=== PATIENT | female | born 1925 | race Caucasian/White ===

== ENCOUNTER 2016-04-23 14:16 | Inpatient (IN) | payer OTHER ==
[~2016-04-23] VITALS: Ht 165.1 cm; Wt 99.8 kg
[~2016-04-23 14:16] MED LIST: ASPEC325 PO; ATEN-173 PO; IBUP-1050 PO; LEVO-217 PO; LISI20TA PO; MULT-506 PO; TRAM-10 PO
--- NOTE | 2016-04-23 15:51 | EMERGENCY ROOM VISIT NOTE ---
History Report prepared by Delmer: Jose G Fiore Under the Supervision of: Dr. Westley Noonan M.D. First contact with patient: 15:24 Chief Complaint: LEG PAIN,LEG INJURY Stated Complaint: LEFT LEG SWELLING AND PAIN History of Present Illness The patient is an 89 year old female who presents to the Emergency Room with complaints of worsening left thigh pain beginning two days prior to arrival. She currently rates her discomfort as an 8/10 in severity. The patient associates left leg swelling, bilateral foot swelling, and weight gain with today's symptoms. She notes she got up out of bed two days ago, and it was difficult for her to walk. The patient states she felt like she was losing her balance, because her left leg feels weak. She notes she has a history of left hip surgery ten years ago, and she has not walked well since. The patient states she has a history of lymphedema in her right leg for the past two years. She notes she has been eating and drinking normally. The patient states she has always had some left leg discomfort since her hip surgery, but the weakness has been new over the past several days. Pt denies LOC, headache, fevers, chills, diaphoresis, visual changes, neck pain, chest pain, breathing difficulties, nausea, vomiting, abdominal pain, back pain, melena, hematochezia, urinary symptoms, numbness, rash, or other complaints. 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 A total of ten systems were reviewed and were otherwise negative. Past Medical & Surgical Medical Problems: (1) Leg swelling (2) Lymphedema Surgical Problems: (1) S/P right knee surgery (2) Status post hip surgery Family History Patient reports no known family medical history. Social History Smoking Status: Never Smoker Marital Status: Housing Status: lives alone Occupation Status: retired Current/Historical Medications Scheduled Aspirin Enteric Coated (Ecotrin Or Generic *), 325 MG PO DAILY Atenolol (Tenormin), 25 MG PO DAILY Fish Oil ([place]-3), 1 CAP PO BID Glucosamine Sulfate (Glucosamine), Unknown Dose PO BID Ibuprofen (Advil), 200 MG PO DAILY Latanoprost (Xalatan 0.005% Oph Angelica), 1 DROP OPB HS Levothyroxine Sodium (Levothyroxine Sodium), 1 TAB PO DAILYBB Lisinopril (Zestril), 20 MG PO DAILY Multivitamin (Multivitamin), 0.5 TAB PO DAILY Allergies Coded Allergies: No Known Allergies (Verified , 04/23/16) Physical Exam Vital Signs Date Time Temp Pulse Resp B/P Pulse Ox O2 Delivery O2 Flow Rate FiO2 04/23/16 21:43 65 16 111/64 98 04/23/16 21:33 36.7 64 18 122/76 98 Room Air 04/23/16 20:55 65 16 111/64 98 Room Air 04/23/16 18:35 67 17 116/62 100 Room Air 04/23/16 17:02 65 18 115/58 100 Room Air 04/23/16 15:52 100 Room Air 04/23/16 15:52 63 18 98/57 100 Room Air 04/23/16 14:22 36.5 59 18 103/62 99 Room Air Physical Exam GENERAL: Awake, alert, uncomfortable-appearing, in no distress HENT: Normocephalic, atraumatic. Oropharynx unremarkable. EYES: Normal conjunctiva. Sclera non-icteric. NECK: Supple. No nuchal rigidity. FROM. No JVD. RESPIRATORY: Clear to auscultation. CARDIAC: Regular rate, normal rhythm. Extremities warm and well perfused. Pulses equal. ABDOMEN: Soft, non-distended. No tenderness to palpation. No rebound or guarding. No masses. RECTAL: Deferred. MUSCULOSKELETAL: Chest examination reveals no tenderness. The back is symmetrical on inspection without obvious abnormality. There is no CVA tenderness to palpation. No joint edema. LOWER EXTREMITIES: 3+ edema on the left leg. 2+ edema on the right leg. Chronic appearing skin changes, erythema, and dry skin on right lower leg, which patient states is chronic. NEURO: Normal sensorium. No sensory or motor deficits noted. SKIN: No rash or jaundice noted. Medical Decision & Procedures ER Provider Diagnostic Interpretation: X ray results as stated below per my interpretation and radiologist interpretation. Other radiology results as stated below per my review and radiologist interpretation LEFT FEMUR 3 VIEWS CLINICAL HISTORY: Left leg pain and swelling. FINDINGS: AP, frog-leg, and lateral views of the left femur are correlated with pelvic radiograph dated 05/10/2007. The skeletal structures are osteopenic. A bipolar left hip arthroplasty is in near-anatomic alignment. There is no radiographic evidence of left femoral fracture. No periprosthetic lucency is identified. Heterotopic ossification is noted adjacent to the neck of the arthroplasty. The imaged left hemipelvis appears intact. Arthritic change is noted in the left knee. The soft tissues of the thigh are normal in appearance. There is advanced atherosclerotic calcification of the left femoral artery. IMPRESSION: There is no radiographic evidence of left femoral fracture. See above. Electronically signed by: Kameron Bender M.D. 04/23/2016 5:38 PM ULTRASOUND LEFT LOWER EXTREMITY VENOUS CLINICAL HISTORY: Left leg pain and swelling. COMPARISON STUDY: Bilateral lower extremity venous ultrasound dated 05/14/2007. TECHNIQUE: Real-time, grayscale, and color Doppler sonography of the deep veins of the left lower extremity was performed from the inguinal crease to the calf. Compression and augmentation were utilized. FINDINGS: There is no sonographic evidence of deep venous thrombosis identified in the left lower extremity. The common femoral, superficial femoral, and popliteal veins are patent and normally compressible. The greater saphenous vein and the profunda femoris vein at the junction with the common femoral vein are clear. The visualized calf veins are patent. IMPRESSION: There is no sonographic evidence of deep venous thrombosis identified in the left lower extremity. Electronically signed by: Kameron Bender M.D. 04/23/2016 5:28 PM SINGLE VIEW CHEST CLINICAL HISTORY: Dyspnea. FINDINGS: An AP, portable, upright chest radiograph is compared to study dated 03/04/2009. The examination is significantly degraded by portable technique and patient rotation. The heart is enlarged and there is atherosclerotic calcification of the thoracic ureter. There is mild pulmonary vascular congestion. There is left basilar atelectasis with mild elevation of left hemidiaphragm. No airspace consolidation or large pleural effusion is identified. No pneumothorax is seen. The skeletal structures are osteopenic. The bony thorax is grossly intact. IMPRESSION: Cardiomegaly with minimal congestion of the pulmonary vasculature. Electronically signed by: Kameron Bender M.D. 04/23/2016 7:31 PM Laboratory Results 04/23/16 15:55 Red Blood Count 3.80, Mean Corpuscular Volume 90.0, Mean Corpuscular Hemoglobin 29.2, Mean Corpuscular Hemoglobin Concent 32.5, Mean Platelet Volume 10.6, Neutrophils (%) (Auto) 66.2, Lymphocytes (%) (Auto) 24.5, Monocytes (%) (Auto) 8.1, Eosinophils (%) (Auto) 0.8, Basophils (%) (Auto) 0.2, Neutrophils # (Auto) 4.27, Lymphocytes # (Auto) 1.58, Monocytes # (Auto) 0.52, Eosinophils # (Auto) 0.05, Basophils # (Auto) 0.01 04/23/16 16:35 Test 04/23/16 15:55 04/23/16 16:35 White Blood Count 6.44 K/uL (4.8-10.8) Red Blood Count 3.80 M/uL (4.2-5.4) Hemoglobin 11.1 g/dL (12.0-16.0) Hematocrit 34.2 % (37-47) Mean Corpuscular Volume 90.0 fL (80-100) Mean Corpuscular Hemoglobin 29.2 pg (25-34) Mean Corpuscular Hemoglobin Concent 32.5 g/dl (32-36) Platelet Count 248 K/uL (130-400) Mean Platelet Volume 10.6 fL (7.4-10.4) Neutrophils (%) (Auto) 66.2 % Lymphocytes (%) (Auto) 24.5 % Monocytes (%) (Auto) 8.1 % Eosinophils (%) (Auto) 0.8 % Basophils (%) (Auto) 0.2 % Neutrophils # (Auto) 4.27 K/uL (1.4-6.5) Lymphocytes # (Auto) 1.58 K/uL (1.2-3.4) Monocytes # (Auto) 0.52 K/uL (0.11-0.59) Eosinophils # (Auto) 0.05 K/uL (0-0.5) Basophils # (Auto) 0.01 K/uL (0-0.2) RDW Standard Deviation 48.7 fL (36.4-46.3) RDW Coefficient of Variation 14.9 % (11.5-14.5) Immature Granulocyte % (Auto) 0.2 % Immature Granulocyte # (Auto) 0.01 K/uL (0.00-0.02) Pro-B-Type Natriuretic Peptide 4584 pg/ml (0-1800) Prothrombin Time 10.7 SECONDS (9.0-12.0) Prothromb Time International Ratio 1.0 (0.9-1.1) Activated Partial Thromboplast Time 25.3 SECONDS (21.0-31.0) Partial Thromboplastin Ratio 1.0 Anion Gap 9.0 mmol/L (3-11) Est Creatinine Clear Calc Drug Dose 54.2 ml/min Estimated GFR () 73.5 Estimated GFR (Non- 63.4 BUN/Creatinine Ratio 27.0 (10-20) Calcium Level 8.5 mg/dl (8.5-10.1) Magnesium Level 2.4 mg/dl (1.8-2.4) Total Bilirubin 0.3 mg/dl (0.2-1) Aspartate Amino Transf (AST/SGOT) 18 U/L (15-37) Alanine Aminotransferase (ALT/SGPT) 23 U/L (12-78) Alkaline Phosphatase 111 U/L (45-117) Troponin I 0.050 ng/ml (0-0.045) Total Protein 6.7 gm/dl (6.4-8.2) Albumin 3.2 gm/dl (3.4-5.0) Globulin 3.5 gm/dl (2.5-4.0) Albumin/Globulin Ratio 0.9 (0.9-2) Thyroid Stimulating Hormone (TSH) 3.790 uIu/ml (0.300-4.500) Laboratory results reviewed by me Medications Administered Medications (Trade) Dose Ordered Sig/Ambar Route Start Time Stop Time Status Last Admin Dose Admin Furosemide (Lasix Inj) 20 mg NOW STAT IV 04/23/16 20:47 04/23/16 20:48 DC 04/23/16 20:47 20 MG ECG Indication: other (lower extremity swelling) Rate (beats per minute): 64 Rhythm: sinus rhythm Findings: PAC, other (LVH with repolarization) ED Course 1536: The patient was evaluated in room C10. A complete history and physical exam was performed. 1821: Reevaluated the patient at this time, and she is getting an EKG and x-ray. 1850: It is noted the patient passed the ambulatory trial. 1916: Reevaluated the patient at this time, and discussed the admission treatment plan due to her elevated troponin. 1926: I spoke to Abram Paul (Hospitalist) about the patient's case, and he will follow the patient for further evaluation. Medical Decision Triage Nursing notes reviewed. The patient's presentation and history were concerning for leg swelling. Etiologies such as DVT, joint effusion, infection, trauma, muscular, lymphedema , idiopathic, CHF, as well as others were entertained. The patient was evaluated. Her legs were swollen. Hemodynamically she was stable. Laboratory testing was done as well as imaging. The patient had a mild anemia on CBC. The patient had the prerenal state on chemistry panel. Her BNP was moderately elevated at 4500. The patient did have a positive troponin. INR was 1. Chest imaging did not reveal any evidence of infiltrate. The patient did have mild pulmonary vascular congestion. Given the laboratory findings, leg swelling, and chest x-ray it was felt that the patient would need further evaluation and management in the hospital as she does not have a history of coronary issues or CHF. I discussed this with the patient and family. They were in agreement. Consultation was made with internal medicine. The patient was evaluated in the Emergency Room for further treatment. The chart was completed utilizing [employer]SO[employer] Speech voice recognition software. Grammatical errors, random word insertions, pronoun errors, and incomplete sentences are an occasional consequence of this system due to software limitations, ambient noise, and hardware issues. Any formal questions or concerns about the content, text, or information contained within the body of this dictation should be directly addressed to the physician for clarification. Consults Time Called: 1922 Consulting Physician: Abram Paul (Hospitalist) Returned Call: 1926 I spoke to Abram Paul (Hospitalist) about the patient's case, and he will follow the patient for further evaluation. Impression Primary Impression: Lower extremity edema Additional Impression: Elevated troponin Scribe Attestation The scribe's documentation has been prepared under my direction and personally reviewed by me in its entirety. I confirm that the note above accurately reflects all work, treatment, procedures, and medical decision making performed by me. Departure Information Dispostion Being Evaluated By Hospitalist (Abram Paul (Hospitalist)) Referrals Luis Hoff M.D. (MEDICAL) (PCP)
[2016-04-23 16:02] LABS: BASO % 0.2 %; BASO ABS # 0.01 K/uL (0-0.2); COMPLETE YES; EOS % 0.8 %; HEMATOCRIT 34.2 % (37-47); IG% 0.2 %; LYMPH % 24.5 %; LYMPH ABS # 1.58 K/uL (1.2-3.4); MEAN CORPUSCULAR HEMOGLOBIN 29.2 pg (25-34); MEAN CORPUSCULAR HGB CONC 32.5 g/dl (32-36); MEAN PLATELET VOLUME 10.6 fL (7.4-10.4); MONO % 8.1 %; NEUT % 66.2 %; PLATELET COUNT 248 K/uL (130-400); WHITE BLOOD COUNT 6.44 K/uL (4.8-10.8)
[2016-04-23] MEDS ORDERED: LISI-461 PO (16:14)
[2016-04-23] MEDS ORDERED: OMEG10007 PO (16:17)
[2016-04-23] MEDS ORDERED: GLUC-172 PO (16:19)
[2016-04-23 16:26] LABS: ALB/GLOB RATIO 0.9 (0.9-2); ALKALINE PHOSPHATASE 121 U/L (45-117); ALT/SGPT 25 U/L (12-78); BLOOD UREA NITROGEN 22 mg/dl (7-18); BUN/CREATININE RATIO 23.5 (10-20); CALCIUM 8.9 mg/dl (8.5-10.1); CARBON DIOXIDE 25 mmol/L (21-32); CHLORIDE 107 mmol/L (98-107); CREATININE 0.93 mg/dl (0.60-1.20); GLUCOSE 76 mg/dl (70-99); SODIUM 141 mmol/L (136-145)
[2016-04-23] MEDS ORDERED: LISI-725 PO (16:27)
[2016-04-23] MEDS ORDERED: LEVO100T7 PO (16:29)
[2016-04-23] MEDS ORDERED: LATA0.5S OPB (16:30)
[2016-04-23 16:53] LABS: PROTHROMBIN TIME (PATIENT) 10.7 SECONDS (9.0-12.0)
[2016-04-23 17:02] LABS: CALCIUM 8.5 mg/dl (8.5-10.1); CREATININE 0.82 mg/dl (0.60-1.20); POTASSIUM 4.6 mmol/L (3.5-5.1)
[2016-04-23 17:05] LABS: ALB/GLOB RATIO 0.9 (0.9-2)
--- NOTE | 2016-04-23 17:30 | DIAGNOSTIC IMAGING REPORT ---
ULTRASOUND LEFT LOWER EXTREMITY VENOUS CLINICAL HISTORY: Left leg pain and swelling. COMPARISON STUDY: Bilateral lower extremity venous ultrasound dated 05/14/2007. TECHNIQUE: Real-time, grayscale, and color Doppler sonography of the deep veins of the left lower extremity was performed from the inguinal crease to the calf. Compression and augmentation were utilized. FINDINGS: There is no sonographic evidence of deep venous thrombosis identified in the left lower extremity. The common femoral, superficial femoral, and popliteal veins are patent and normally compressible. The greater saphenous vein and the profunda femoris vein at the junction with the common femoral vein are clear. The visualized calf veins are patent. IMPRESSION: There is no sonographic evidence of deep venous thrombosis identified in the left lower extremity. Electronically signed by: Kameron Bender M.D. 04/23/2016 5:28 PM
[2016-04-23] MEDS ORDERED: SODIUM CHLORIDE 0.45% INJ 1000 ML BAG IV ONE (17:33)
--- NOTE | 2016-04-23 17:40 | DIAGNOSTIC IMAGING REPORT ---
LEFT FEMUR 3 VIEWS CLINICAL HISTORY: Left leg pain and swelling. FINDINGS: AP, frog-leg, and lateral views of the left femur are correlated with pelvic radiograph dated 05/10/2007. The skeletal structures are osteopenic. A bipolar left hip arthroplasty is in near-anatomic alignment. There is no radiographic evidence of left femoral fracture. No periprosthetic lucency is identified. Heterotopic ossification is noted adjacent to the neck of the arthroplasty. The imaged left hemipelvis appears intact. Arthritic change is noted in the left knee. The soft tissues of the thigh are normal in appearance. There is advanced atherosclerotic calcification of the left femoral artery. IMPRESSION: There is no radiographic evidence of left femoral fracture. See above. Electronically signed by: Kaemron Bender M.D. 04/23/2016 5:38 PM
--- NOTE | 2016-04-23 19:33 | DIAGNOSTIC IMAGING REPORT ---
SINGLE VIEW CHEST CLINICAL HISTORY: Dyspnea. FINDINGS: An AP, portable, upright chest radiograph is compared to study dated 03/04/2009. The examination is significantly degraded by portable technique and patient rotation. The heart is enlarged and there is atherosclerotic calcification of the thoracic ureter. There is mild pulmonary vascular congestion. There is left basilar atelectasis with mild elevation of left hemidiaphragm. No airspace consolidation or large pleural effusion is identified. No pneumothorax is seen. The skeletal structures are osteopenic. The bony thorax is grossly intact. IMPRESSION: Cardiomegaly with minimal congestion of the pulmonary vasculature. Electronically signed by: Kameron Bender M.D. 04/23/2016 7:31 PM
[2016-04-23 20:09] LABS: MAGNESIUM 2.4 mg/dl (1.8-2.4); THYROID STIMULATING HORMONE 3.79 uIu/ml (0.300-4.500)
[2016-04-23] MEDS ORDERED: FUROSEMIDE INJ 40 MG in SYRINGE 0 ML IV STA (20:14)
[2016-04-23] MEDS ORDERED: FUROSEMIDE INJ 20 MG in SYRINGE 0 ML IV STA (20:44)
[2016-04-23] MEDS ORDERED: ONDANSETRON INJ 2 MG/ML 2 ML VIAL IV PRN (20:45)
[2016-04-23] MEDS ORDERED: HYDROmorphone INJ 1 MG/ML SYR IV PRN (20:45)
[2016-04-23] MEDS ORDERED: NITROGLYCERIN 0.4 MG SL PER TAB CHARGE SL PRN (20:45)
[2016-04-23] MEDS ORDERED: TRAMADOL HCL 50 MG TAB PO PRN (20:45)
[2016-04-23] MEDS ORDERED: FUROSEMIDE 40 MG/4 ML VIAL IV STA (20:47)
[2016-04-23 21:33] VITALS: BP 122/76; PULSE 64; TEMP 36.7; O2SAT 98; Ht 165.1 cm; Wt 99.8 kg
[2016-04-23] MEDS: ENOXAPARIN 40 MG/0.4 ML SYR SC SCH (23:05)
[2016-04-23] MEDS: LATANOPROST 0.005% OP SOLN 2.5 ML BTL OPB SCH (23:06)
[2016-04-23 23:27] VITALS: BP 90/47; PULSE 64; TEMP 36.4; O2SAT 96
[2016-04-24] VITALS (39 sets, daily range): BP systolic 55–102; BP diastolic 33–59; PULSE 54–77; TEMP 36.4–36.7; O2SAT 93–100
[2016-04-24 05:49] LABS: BASO % 0.3 %; BASO ABS # 0.01 K/uL (0-0.2); COMPLETE YES; EOS % 3.5 %; HEMATOCRIT 28.3 % (37-47); LYMPH % 41.5 %; LYMPH ABS # 1.56 K/uL (1.2-3.4); MEAN CELL VOLUME 88.4 fL (80-100); MEAN CORPUSCULAR HEMOGLOBIN 29.4 pg (25-34); MEAN CORPUSCULAR HGB CONC 33.2 g/dl (32-36); MEAN PLATELET VOLUME 10.2 fL (7.4-10.4); MONO % 8.8 %; NEUT % 45.9 %; PLATELET COUNT 191 K/uL (130-400); WHITE BLOOD COUNT 3.76 K/uL (4.8-10.8)
[2016-04-24] MEDS: LEVOTHYROXINE 100 MCG TAB PO SCH (06:04)
[2016-04-24 06:21] LABS: BUN/CREATININE RATIO 25.4 (10-20); CALCIUM 8.2 mg/dl (8.5-10.1); CREATININE 0.84 mg/dl (0.60-1.20); POTASSIUM 4.3 mmol/L (3.5-5.1)
--- NOTE | 2016-04-24 07:37 | HISTORY & PHYSICAL EXAMINATION ---
DATE OF ADMISSION: 04/23/2016 PRIMARY CARE DOCTOR: Dr. Hoff. CHIEF COMPLAINT: Left leg swelling, pain. HISTORY OF PRESENT ILLNESS: Medical history significant for hypertension, lymphedema; aortic stenosis as per records, arthritis; chronic anemia (baseline hemoglobin 11). Patient has had pain on the left thigh for more than a year now. Seen by [facility] [place] [place] [facility] in March 2015. As per patient, pain attributed to osteoarthritis. She was told that she was not a candidate for surgery. In the last few days more swelling on the left leg, more pain on the left thigh. Trouble moving around. No chest pain, no shortness of breath, no fever, no chills. Usual redness. for both legs Patient brought by family to the Emergency Room. MEDICAL HISTORY: As above. 2D echo in 2007 showed EF 70%, LVH, dilated left atrium, moderate aortic stenosis. SURGERIES: Hip surgery, gynecologic procedures, eye surgery, knee surgery, cataract surgery. HOME MEDICATIONS: Include aspirin, atenolol, omega-3, glucosamine, Advil, Xalatan, levothyroxine, Zestril, multivitamins. ALLERGIES: No known drug allergies. FAMILY HISTORY: Heart disease. PERSONAL SOCIAL HISTORY: Nonsmoker, no chronic intake of alcoholic beverages. REVIEW OF SYSTEMS: As per HPI, all other ROS negative. PHYSICAL EXAMINATION: VITAL SIGNS: Blood pressure was noted to be 103/60, pulse rate 60, RR 18, temperature 36.5, sats 99 on room air. GENERAL: Noted to be an obese, pleasant, no respiratory distress. Looks younger for stated age. SKIN : pallor HEENT: Pale palpebral conjunctivae, dry mucosa. NECK: Short neck. LUNGS: Decreased breath sounds. HEART: Systolic murmur. ABDOMEN: Some distention, nontender. EXTREMITIES: bilateral lower extremity edema (chronic erythema as per px) tenderness on the left thigh. NEUROLOGIC: No gross focality. LABORATORY DATA: Hemoglobin was 11.1, hematocrit 40.2, white cell count 6.44, platelets noted to be 248. Sodium noted to be 142, potassium 4.6, chloride 109, CO2 24, BUN 22, creatinine 0.8, glucose of 87. Troponin was noted to be 0.05. BNP was 4584. Lower extremity ultrasound negative for DVT. Plain femoral x-ray, no radiographic evidence of left femoral fracture. Chest x-ray; cardiomegaly with minimal congestion. EKG, rate 65, normal sinus rhythm, LVH, T-wave inversion in lateral leads. ASSESSMENT: 1. Isolated troponinemia poss from LV strain from poss progression of px denies cp, sob sx 2. Left leg swelling hx lymphedema 3. chronic anemia, Hg at baseline 4. hypertension, blood pressure on the low side 5. ambulatory dysfunction, worsening chronic L thigh pain etiology to be determined. PLAN: PCU mainly for troponinemia. Follow troponin; 2D echo RE troponinemia. Lasix one dose now for lymphedema/venous insufficiency causing distress Px may benefit from low dose diuretic. Orthopedics consult RE left thigh pain may need CT or MRI LE to determine etio (Dr. Sen as per px request). Further management pending workup results. PT, OT eval. DVT prophylaxis with Lovenox subQ. Full code. MTDD
[2016-04-24] MEDS ORDERED: ASPIRIN 81 MG CHEW PO STA (08:57)
[2016-04-24] MEDS ORDERED: ONDANSETRON INJ 2 MG/ML 2 ML VIAL IV STA (08:57)
[2016-04-24] MEDS ORDERED: ONDANSETRON INJ 2 MG/ML 2 ML VIAL IV PRN (09:00)
[2016-04-24] MEDS ORDERED: LISINOPRIL 2.5 MG TAB PO SCH (09:00)
[2016-04-24] MEDS ORDERED: LISINOPRIL 20 MG TAB PO SCH (09:00)
[2016-04-24] MEDS ORDERED: ASPIRIN 324 MG CHEW ONE (09:05)
--- NOTE | 2016-04-24 09:14 | DIAGNOSTIC IMAGING REPORT ---
CHEST ONE VIEW PORTABLE CLINICAL HISTORY: Code blue. Leg swelling. COMPARISON STUDY: Chest radiograph April 23, 2016 FINDINGS: No pneumothorax or pleural effusion is present. There is no evidence of pulmonary edema. Cardiomediastinal silhouette is stable. There may be a few nodular opacities within the right upper lung which were not present on prior exam. IMPRESSION: 1. A few subtle nodules within the right upper lung which may reflect a mild infectious process. However, artifact could appear similar. 2. No evidence of pulmonary edema. Electronically signed by: Jose William M.D. 04/24/2016 9:13 AM
[2016-04-24 09:21] LABS: BUN/CREATININE RATIO 24.5 (10-20); CALCIUM 8.6 mg/dl (8.5-10.1); MAGNESIUM 2.3 mg/dl (1.8-2.4); POTASSIUM 4.1 mmol/L (3.5-5.1)
[2016-04-24] MEDS ORDERED: PERFLUTREN LIPID MICROSPHERE (DEFINITY) IV ONE (09:25)
[2016-04-24 09:32] LABS: CKMB/CK RATIO 1.9 (0-3.0); PHOSPHORUS 3.5 mg/dl (2.5-4.9)
[2016-04-24] MEDS ORDERED: NURSING VERBAL MED ORDER ONE (10:30)
[2016-04-24] MEDS ORDERED: SODIUM CHLORIDE 0.9% 500ML 500 ML IV SCH (10:45)
--- NOTE | 2016-04-24 10:45 | ECHOCARDIOGRAM REPORT ---
*NOTICE TO RECEIVING REPUBLICAN AGENCY This information is strictly Confidential and protected under [place] law. [place] law prohibits you from making any further disclosure of this information unless further disclosure is expressly permitted by the written consent of the person to whom it pertains or is authorized by law. A general authorization for the release of medical or other information is not sufficient for this purpose. Hospital accepts no responsibility if the information is made available to any other person, INCLUDING THE PATIENT. Interpretation Summary * Name: VONNIE SANCHES Study Date: 04/24/2016 09:05 AM BP: 92/52 mmHg * Patient Location: .MSICU\S\E102\S\1 HR: 61 * : 1925 (M/d/yyyy) Gender: Female Height: 65 in * Age: 89 yrs Ethnicity: CA Weight: 218 lb * Ordering Physician: Damian Gustafson * Performed By: Juany Snyder * * Reason For Study: TROPONINEMIA, MURMUR * BSA: 2.1 m2 * -- Conclusions -- * Small, underfilled, LV chamber with moderate concentric LVH. * Hyperdynamic LV systolic function, EF >70%. * No segmental left ventricular wall motion abnormalities are noted. * Grade II diastolic dysfunction. * Heavily calcified aortic valve, number of leaflets undetermined, reduced systolic excursion. Severe aortic stenosis with Vmax of 5.4 m/s, PGmax of 115 mmHg. Mild aortic regurgitation. * RVSP of 20-30 mmHg. Procedure Details * A complete two-dimensional transthoracic echocardiogram was performed (2D, M-mode, Doppler and color flow Doppler). * There were technical limitations due to patient'spoor positioning * A contrast injection of Definity was performed to improve assessment of LV function. * Contrast was injected into an intravenous site in the left arm. * One vial of Definity ultrasound contrast was diluted in normal saline to a total volume of 10 ml. A total of '3' ml of solution was administered during imaging. * Lot # [id number] of Definity utilized for procedure. * Expiration date 10/07. Left Ventricle * The left ventricular cavity is small. * There is moderate concentric left ventricular hypertrophy. * Ejection Fraction = >70 %. * The left ventricle is hyperdynamic. * No segmental left ventricular wall motion abnormalities are noted. * The left ventricular wall motion is normal. Right Ventricle * The right ventricle is not well visualized. * The right ventricular systolic function is normal as assessed by tricuspid annular plane systolic excursion (TAPSE) (normal >1.5 cm). Atria * The left atrial size is normal. * Right atrium not well visualized. * No ASD detected; PFO is not assessed. * The interatrial septum bows toward right atrium consistent with elevated left atrial pressure. Mitral Valve * There is moderate mitral annular calcification. * The mitral valve leaflets appear thickened, but open well. * There is no mitral valve stenosis. * There is no mitral regurgitation noted. Tricuspid Valve * The tricuspid valve is normal in structure and function. Aortic Valve * The aortic valve is not well visualized. * Severe valvular aortic stenosis. * Mild aortic regurgitation. Pulmonic Valve * The pulmonary valve is not well seen, but the Doppler examination is normal without significant regurgitation or stenosis. Great Vessels * The aortic root and proximal ascending aorta are normal sized. Pericardium/Pleural * There is no pericardial effusion. Left Ventricular Diastolic Function * Diastolic dysfunction, Grade II (pseudonormalization pattern). MMode 2D Measurements and Calculations IVSd 1.5 cm IVSs 1.7 cm LVIDd 4.1 cm LVIDs 2.7 cm LVPWd 1.1 cm LVPWs 1.4 cm IVS/LVPW 1.4 FS 34.2 % EDV(Teich) 73.1 ml ESV(Teich) 26.5 ml EF(Teich) 63.8 % EDV(cubed) 67.6 ml ESV(cubed) 19.2 ml EF(cubed) 71.6 % % IVS thick 12.6 % % LVPW thick 31.1 % LV mass(C)d 193.4 grams LV mass(C)dI 94.2 grams/m\S\2 LV mass(C)s 149.1 grams LV mass(C)sI 72.6 grams/m\S\2 CO(Teich) 3.1 l/min CI(Teich) 1.5 l/min/m\S\2 SV(Teich) 46.6 ml SI(Teich) 22.7 ml/m\S\2 CO(cubed) 3.2 l/min CI(cubed) 1.6 l/min/m\S\2 SV(cubed) 48.3 ml SI(cubed) 23.6 ml/m\S\2 LA dimension 3.6 cm asc Aorta Diam 3.4 cm LVOT diam 1.6 cm LVOT area 2.1 cm\S\2 LVAd ap4 33.7 cm\S\2 LVLd ap4 9.1 cm EDV(MOD-sp4) 101.0 ml LVAs ap4 16.6 cm\S\2 LVLs ap4 6.9 cm ESV(MOD-sp4) 32.1 ml EF(MOD-sp4) 68.2 % LVAd ap2 32.8 cm\S\2 LVLd ap2 8.8 cm EDV(MOD-sp2) 100.0 ml LVAs ap2 17.1 cm\S\2 LVLs ap2 7.5 cm ESV(MOD-sp2) 32.2 ml EF(MOD-sp2) 67.8 % CO(MOD-sp4) 4.6 l/min CI(MOD-sp4) 2.2 l/min/m\S\2 SV(MOD-sp4) 68.9 ml SI(MOD-sp4) 33.6 ml/m\S\2 CO(MOD-sp2) 4.5 l/min CI(MOD-sp2) 2.2 l/min/m\S\2 SV(MOD-sp2) 67.8 ml SI(MOD-sp2) 33.0 ml/m\S\2 Doppler Measurements and Calculations MV E max [place] 117.4 cm/sec MV A max [place] 81.0 cm/sec MV E/A 1.4 MV V2 max 146.6 cm/sec MV max PG 8.6 mmHg MV V2 mean 74.1 cm/sec MV mean PG 2.7 mmHg MV V2 VTI 51.6 cm MVA(VTI) 1.0 cm\S\2 MV dec time 0.25 sec Ao V2 max 536.9 cm/sec Ao max PG 115.3 mmHg Ao max PG (full) 73.5 mmHg Ao V2 mean 396.6 cm/sec Ao mean PG 69.9 mmHg Ao mean PG (full) 68.5 mmHg Ao V2 VTI 148.8 cm JENNIFER(I,A) 0.36 cm\S\2 JENNIFER(I,D) 0.36 cm\S\2 JENNIFER(V,A) 0.91 cm\S\2 JENNIFER(V,D) 0.91 cm\S\2 AI max [place] 213.1 cm/sec AI max PG 18.2 mmHg AI dec slope 140.7 cm/sec\S\2 AI P1/2t 443.6 msec LV V1 max PG 41.8 mmHg LV V1 mean PG 1.4 mmHg LV V1 max 237.9 cm/sec LV V1 mean 54.7 cm/sec LV V1 VTI 25.8 cm MR max [place] 476.4 cm/sec MR max PG 90.8 mmHg SV(LVOT) 52.9 ml SI(LVOT) 25.8 ml/m\S\2 PA V2 max 102.8 cm/sec PA max PG 4.2 mmHg TR max [place] 249.2 cm/sec
--- NOTE | 2016-04-24 10:50 | Progress Note ---
Internal Med Progress Note Date of Service: Apr 24, 2016. Provider Documentation: SUBJECTIVE: pt was admitted for lower ext progressive edema had episode of hypotension , unresponsive episode in AM as she was OOB going to bed side commode became unresponsive , bradycardic , Code blue was called pt regained conscious with in few seconds , was able to answer questions transferred to ICU during my time of interview -pt was awake and alert , conversing , no complain of dizzy spell or lightheadedness mentioned she felt nauseous and dizzy before passing out earlier BP remains borderline low in 80's getting IV fluid OBJECTIVE: Vital Signs-as noted below Exam: General-no sign of distress Eyes-sclera non icteric, PERRLA/EOMI ENT-NAD Neck-no thyromegaly , trachea midline Lungs-CTA, no wheeze or rales Heart-+ murmur with radiation to carotids Abdomen-soft, non tender Extremities- + 1-2 lower ext edema, with + warmth , erythema on left Neuro-no focal neurological deficit Lab data as noted below. ASSESSMENT & PLAN: SYNCOPE /DIZZY SPELL : due to dehydration -leading to cerebral /cardiac perfusion due to severe IV fluid given , vol status needs to be monitored closely given severe valvular disease appreciate input form critical care HYPOTENSION : given gentle hydration hold diuretics ACEI on hold atenolol with holding parameters only SEVERE AORTIC STENOSIS: ECHO: Hyperdynamic LV systolic function, EF >70%. * No segmental left ventricular wall motion abnormalities are noted. * Grade II diastolic dysfunction. * Heavily calcified aortic valve, number of leaflets undetermined, reduced systolic excursion. Severe aortic stenosis with Vmax of 5.4 m/s, PGmax of 115 mmHg. Mild aortic regurgitation. * RVSP of 20-30 mmHg. -D/w Cardiology , pt will be evaluated in Am -will need to be optimized with vol status will need continued eval for Aortic valve replacement can be done electively after out pt follow up and referral to CT surgery at [facility] Family -Son and Daughter updated at bedside LOWER EXT EDEMA /CELLULITIS : po Doxycycline empirically avoid diuretics to prevent dehydration , intravascular vol depletion FULL CODE DVT PROPHYLAXIS sub q heparin DISPOSITION to be determined will need PT/OT eval when medically stable Vital Signs: Date Time Temp Pulse Resp B/P Pulse Ox O2 Delivery O2 Flow Rate FiO2 04/24/16 21:40 74 89/50 1/2/17 20:00 36.6 67 17 82/40 97 Room Air 04/24/16 20:00 Room Air 04/24/16 18:30 65 5 95 04/24/16 18:29 68 13 89/48 94 04/24/16 18:00 64 12 85/45 99 Nasal Cannula 2.0 04/24/16 18:00 66 13 98 04/24/16 17:58 70 17 95/51 98 04/24/16 17:30 68 18 99 04/24/16 17:28 69 16 85/45 97 04/24/16 17:00 62 16 98 04/24/16 16:48 64 14 85/45 99 Nasal Cannula 2.0 04/24/16 16:30 64 14 87/46 99 Nasal Cannula 2.0 04/24/16 16:00 63 20 89/50 100 Nasal Cannula 2.0 04/24/16 15:40 Non-Rebreather 100 04/24/16 15:40 36.4 64 16 99/54 99 Nasal Cannula 2.0 04/24/16 15:00 66 100/59 99 Nasal Cannula 2.0 04/24/16 14:13 60 91/50 96 Nasal Cannula 2.0 04/24/16 13:29 61 10 94/41 100 04/24/16 13:00 72 15 100 04/24/16 13:00 71 13 99/55 100 Nasal Cannula 2.0 04/24/16 12:58 74 17 99/55 100 04/24/16 12:43 71 12 92/52 99 04/24/16 12:31 67 14 62/33 97 04/24/16 12:30 71 20 61/41 95 04/24/16 12:30 36.7 77 16 55/36 100 Nasal Cannula 2.0 04/24/16 12:28 70 21 55/36 96 04/24/16 12:00 68 21 97 04/24/16 12:00 Nasal Cannula 2.0 04/24/16 12:00 36.7 70 20 99/50 100 Nasal Cannula 2.0 04/24/16 11:59 66 15 75/46 96 04/24/16 11:30 75 92/46 100 Nasal Cannula 3.0 04/24/16 11:30 64 17 92/46 100 04/24/16 11:30 70 20 99/46 100 Nasal Cannula 2.0 04/24/16 11:00 65 6 100 04/24/16 10:59 63 13 88/47 100 04/24/16 10:30 63 10 100 04/24/16 10:30 61 88/47 100 Nasal Cannula 3.0 04/24/16 10:29 62 10 86/51 98 04/24/16 10:00 57 14 100 04/24/16 10:00 61 84/41 100 Nasal Cannula 3.0 04/24/16 09:59 54 14 85/41 100 04/24/16 09:30 56 16 100 04/24/16 09:30 36.7 61 102/51 100 Non-Rebreather 100 04/24/16 09:30 Non-Rebreather 100 04/24/16 09:30 36.7 61 20 102/51 100 04/24/16 09:29 56 19 94/42 100 04/24/16 09:00 64 102/57 100 04/24/16 07:25 36.5 61 18 92/52 96 Room Air 04/24/16 05:02 78/40 04/24/16 04:42 36.5 62 20 73/40 93 Room Air 04/24/16 04:00 93 Room Air 04/24/16 00:01 96 Room Air Lab Results: Results Past 24 Hours Test 04/24/16 05:35 04/24/16 08:30 04/24/16 08:35 04/24/16 13:50 Range/Units White Blood Count 3.76 4.8-10.8 K/uL Red Blood Count 3.20 4.2-5.4 M/uL Hemoglobin 9.4 12.0-16.0 g/dL Hematocrit 28.3 37-47 % Mean Corpuscular Volume 88.4 80-100 fL Mean Corpuscular Hemoglobin 29.4 25-34 pg Mean Corpuscular Hemoglobin Concent 33.2 32-36 g/dl Platelet Count 191 130-400 K/uL Mean Platelet Volume 10.2 7.4-10.4 fL Neutrophils (%) (Auto) 45.9 % Lymphocytes (%) (Auto) 41.5 % Monocytes (%) (Auto) 8.8 % Eosinophils (%) (Auto) 3.5 % Basophils (%) (Auto) 0.3 % Neutrophils # (Auto) 1.73 1.4-6.5 K/uL Lymphocytes # (Auto) 1.56 1.2-3.4 K/uL Monocytes # (Auto) 0.33 0.11-0.59 K/uL Eosinophils # (Auto) 0.13 0-0.5 K/uL Basophils # (Auto) 0.01 0-0.2 K/uL RDW Standard Deviation 48.8 36.4-46.3 fL RDW Coefficient of Variation 14.9 11.5-14.5 % Immature Granulocyte % (Auto) 0.0 % Immature Granulocyte # (Auto) 0.00 0.00-0.02 K/uL Sodium Level 145 143 136-145 mmol/L Potassium Level 4.3 4.1 3.5-5.1 mmol/L Chloride Level 109 108 98-107 mmol/L Carbon Dioxide Level 26 25 21-32 mmol/L Anion Gap 10.0 10.0 3-11 mmol/L Blood Urea Nitrogen 21 25 7-18 mg/dl Creatinine 0.84 1.00 0.60-1.20 mg/dl Est Creatinine Clear Calc Drug Dose 52.6 44.2 ml/min Estimated GFR () 71.4 57.8 Estimated GFR (Non- 61.6 49.9 BUN/Creatinine Ratio 25.4 24.5 10-20 Random Glucose 80 149 70-99 mg/dl Lactic Acid Level 0.7 0.4-2.0 mmol/L Calcium Level 8.2 8.6 8.5-10.1 mg/dl Troponin I 0.043 0.037 0-0.045 ng/ml Bedside Glucose 134 70-90 mg/dl Phosphorus Level 3.5 2.5-4.9 mg/dl Magnesium Level 2.3 1.8-2.4 mg/dl Total Creatine Kinase 136 26-192 U/L Creatine Kinase MB 2.6 0.5-3.6 ng/ml Creatine Kinase MB Ratio 1.9 0-3.0 Urine Color YELLOW Urine Appearance CLEAR CLEAR Urine pH 6.0 4.5-7.5 Urine Specific [place] 1.018 1.000-1.030 Urine Protein NEG NEG Urine Glucose (UA) NEG NEG Urine Ketones NEG NEG Urine Occult Blood NEG NEG Urine Nitrite NEG NEG Urine Bilirubin NEG NEG Urine Urobilinogen NEG NEG Urine Leukocyte Esterase NEG NEG Test 04/24/16 16:40 Range/Units Total Creatine Kinase 106 26-192 U/L Creatine Kinase MB 2.0 0.5-3.6 ng/ml Creatine Kinase MB Ratio 1.9 0-3.0 Troponin I 0.062 0-0.045 ng/ml Microbiology Results 04/24/16 MRSA DNA Surveillance Screen - Final, Complete Specimen Negative for MRSA by DNA Probe
[2016-04-24] MEDS ORDERED: SODIUM CHLORIDE 0.9% 1000ML 1,000 ML IV ONE (12:15)
[2016-04-24] MEDS: DOXYCYCLINE HYCLATE 100 MG CAP PO SCH ×2 (13:12→20:55)
[2016-04-24] MEDS ORDERED: NYSTATIN POWDER 15GM BTL EXT PRN (14:30)
[2016-04-24 14:48] LABS: URINE APPEARANCE CLEAR (CLEAR); URINE BILIRUBIN NEG (NEG); URINE COLOR YELLOW; URINE NITRITE NEG (NEG); URINE SPECIFIC GRAVITY 1.018 (1.000-1.030); UROBILINOGEN NEG (NEG); ZZURINE CULT IF INDIC CATH NO
[2016-04-24 14:51] LABS: MANUAL MICROSCOPIC REQUIRED? NO; REVIEW REQ? NO
[2016-04-24 17:13] LABS: CKMB/CK RATIO 1.9 (0-3.0)
--- NOTE | 2016-04-24 18:52 | Critical Care Consultation ---
Critical Care Consultation Date of Consultation: Apr 24, 2016. Attending Physician: Genevieve Argueta M.D. History of Present Illness Patient is a 89-year-old female who was initially a code purple which transition to a CODE BLUE early this morning. Reportedly the patient had been admitted for peripheral edema, was doing well until she sat up this morning and was assisted to go to the commode, she became unresponsive, bradycardic and had an episode of hypotension. By the time I entered the room the patient was in the supine position she was marginally responsive which rapidly increased and she was coherent and able to answer questions and remember what had happened. It appeared she had a episode of convulsive syncope. He denied chest pain shortness of breath immediately after arousal. Blood sugar was within normal limits. EKG was obtained and compared to previous with significant T-wave inversions laterally and inferiorly. This was discussed with the on-call unindentured apprentice. A stat echo was ordered and she was transferred to the ICU for further management Family History Patient reports no known family medical history. Social History Smoking Status: Never Smoker Marital Status: Housing Status: lives alone Occupation Status: retired Allergies Coded Allergies: No Known Allergies (Verified , 04/23/16) Home Medications Scheduled Aspirin Enteric Coated (Ecotrin Or Generic *), 325 MG PO DAILY Atenolol (Tenormin), 25 MG PO DAILY Fish Oil ([place]-3), 1 CAP PO BID Glucosamine Sulfate (Glucosamine), Unknown Dose PO BID Ibuprofen (Advil), 200 MG PO DAILY Latanoprost (Xalatan 0.005% Oph Angelica), 1 DROP OPB HS Levothyroxine Sodium (Levothyroxine Sodium), 1 TAB PO DAILYBB Lisinopril (Zestril), 20 MG PO DAILY Multivitamin (Multivitamin), 0.5 TAB PO DAILY Current Inpatient Medications Current Inpatient Medications Medications (Trade) Dose Ordered Sig/Ambar Route Start Time Stop Time Status Last Admin Dose Admin Enoxaparin Sodium (Lovenox Inj) 40 mg Q24H SC 04/23/16 22:00 05/23/16 21:59 04/23/16 23:05 40 MG Acetaminophen (Tylenol Tab) 650 mg Q4H PRN PO 04/23/16 20:45 05/23/16 20:44 Nitroglycerin (Nitrostat Tab) 0.4 mg UD PRN SL 04/23/16 20:45 05/23/16 20:44 Tramadol HCl (Ultram Tab) 25 mg Q6H PRN PO 04/23/16 20:45 05/23/16 20:44 Hydromorphone HCl (Dilaudid Inj) 0.5 mg Q3H PRN IV 04/23/16 20:45 05/07/16 20:44 Aspirin (Ecotrin Tab) 325 mg DAILY PO 04/24/16 09:00 05/24/16 08:59 Future hold Latanoprost (Xalatan Oph Soln) 1 drops HS OPB 04/23/16 21:00 05/23/16 20:59 04/23/16 23:06 1 DROPS Levothyroxine Sodium (Synthroid Tab) 100 mcg DAILYBB PO 04/24/16 06:00 05/24/16 06:59 04/24/16 06:04 100 MCG Multivitamins (Flintstones Complete Tab) 0.5 tab QAM PO 04/24/16 09:00 05/24/16 08:59 Lisinopril (Zestril Tab) 2.5 mg DAILY PO 04/24/16 09:00 05/24/16 08:59 Atenolol (Tenormin Tab) 12.5 mg DAILY PO 04/24/16 09:00 05/24/16 08:59 Ondansetron HCl (Zofran Inj) 4 mg Q8H PRN IV 04/24/16 09:00 05/24/16 08:59 04/24/16 08:40 4 MG Doxycycline Hyclate (Vibramycin Cap) 100 mg BID PO 04/24/16 12:00 05/04/16 11:59 04/24/16 13:12 100 MG Nystatin (Mycostatin Powder) 1 appln PRN PRN EXT 04/24/16 14:30 05/24/16 14:29 Review of Systems Denies chest pain, shortness of breath, abdominal pain. Physical Exam Date Time Temp Pulse Resp B/P Pulse Ox O2 Delivery O2 Flow Rate FiO2 04/24/16 16:48 64 14 85/45 99 Nasal Cannula 2.0 04/24/16 16:30 64 14 87/46 99 Nasal Cannula 2.0 04/24/16 16:00 63 20 89/50 100 Nasal Cannula 2.0 04/24/16 15:40 Non-Rebreather 100 04/24/16 15:40 36.4 64 16 99/54 99 Nasal Cannula 2.0 04/24/16 15:00 66 100/59 99 Nasal Cannula 2.0 04/24/16 14:13 60 91/50 96 Nasal Cannula 2.0 04/24/16 13:29 61 10 94/41 100 04/24/16 13:00 72 15 100 04/24/16 13:00 71 13 99/55 100 Nasal Cannula 2.0 04/24/16 12:58 74 17 99/55 100 04/24/16 12:43 71 12 92/52 99 04/24/16 12:31 67 14 62/33 97 04/24/16 12:30 71 20 61/41 95 04/24/16 12:30 36.7 77 16 55/36 100 Nasal Cannula 2.0 04/24/16 12:28 70 21 55/36 96 04/24/16 12:00 68 21 97 04/24/16 12:00 Nasal Cannula 2.0 04/24/16 12:00 36.7 70 20 99/50 100 Nasal Cannula 2.0 04/24/16 11:59 66 15 75/46 96 04/24/16 11:30 75 92/46 100 Nasal Cannula 3.0 04/24/16 11:30 64 17 92/46 100 04/24/16 11:30 70 20 99/46 100 Nasal Cannula 2.0 04/24/16 11:00 65 6 100 04/24/16 10:59 63 13 88/47 100 04/24/16 10:30 63 10 100 04/24/16 10:30 61 88/47 100 Nasal Cannula 3.0 04/24/16 10:29 62 10 86/51 98 04/24/16 10:00 57 14 100 04/24/16 10:00 61 84/41 100 Nasal Cannula 3.0 04/24/16 09:59 54 14 85/41 100 04/24/16 09:30 56 16 100 04/24/16 09:30 36.7 61 102/51 100 Non-Rebreather 100 04/24/16 09:30 Non-Rebreather 100 04/24/16 09:30 36.7 61 20 102/51 100 04/24/16 09:29 56 19 94/42 100 04/24/16 09:00 64 102/57 100 04/24/16 07:25 36.5 61 18 92/52 96 Room Air 04/24/16 05:02 78/40 04/24/16 04:42 36.5 62 20 73/40 93 Room Air 04/24/16 04:00 93 Room Air 04/24/16 00:01 96 Room Air 04/23/16 23:27 36.4 64 20 90/47 96 Room Air 04/23/16 21:43 65 16 111/64 98 04/23/16 21:33 36.7 64 18 122/76 98 Room Air 04/23/16 20:55 65 16 111/64 98 Room Air 04/23/16 18:35 67 17 116/62 100 Room Air FAMILY SERVICE AIDE/Neuro: AAOx 3, Pupils: Equal round reactive, Focal Signs: None Respiratory: Third auscultation bilaterally no wheezes rales rhonchi Cardiovascular: S1-S2 significant murmur CV drips: Rhythm: Normal sinus rhythm EKG: EKG is 3 reviewed today, immediately after hypotensive, syncopal episode patient had inverted T waves which resolved after 15 minutes, there is no chest pain during the entire event ECHO: Report dated 04/24/2016 is reviewed, hyperdynamic EF of 70%, reported significant severe aortic stenosis, no mention of valve area Fluids/Renal: Given 2 boluses. Taking full diet GI/Nutrition: Soft nondistended and nontender Feeding: Diet Prophylaxis: Not indicated Endocrine: Last 24 hour glucose: 134 Hematology: Anemia DVT prophylaxis: Lovenox Skin/MSK: Bilateral lower extremity cellulitis Infectious Disease/Immunology: Tmax: Afebrile CVL (date): Not applicable Antimicrobials: Doxycycline day 1 Laboratory Results Last 24 Hours Test 04/23/16 23:05 04/24/16 05:35 04/24/16 08:30 04/24/16 08:35 Troponin I 0.050 ng/ml 0.043 ng/ml 0.037 ng/ml White Blood Count 3.76 K/uL Red Blood Count 3.20 M/uL Hemoglobin 9.4 g/dL Hematocrit 28.3 % Mean Corpuscular Volume 88.4 fL Mean Corpuscular Hemoglobin 29.4 pg Mean Corpuscular Hemoglobin Concent 33.2 g/dl Platelet Count 191 K/uL Mean Platelet Volume 10.2 fL Neutrophils (%) (Auto) 45.9 % Lymphocytes (%) (Auto) 41.5 % Monocytes (%) (Auto) 8.8 % Eosinophils (%) (Auto) 3.5 % Basophils (%) (Auto) 0.3 % Neutrophils # (Auto) 1.73 K/uL Lymphocytes # (Auto) 1.56 K/uL Monocytes # (Auto) 0.33 K/uL Eosinophils # (Auto) 0.13 K/uL Basophils # (Auto) 0.01 K/uL RDW Standard Deviation 48.8 fL RDW Coefficient of Variation 14.9 % Immature Granulocyte % (Auto) 0.0 % Immature Granulocyte # (Auto) 0.00 K/uL Sodium Level 145 mmol/L 143 mmol/L Potassium Level 4.3 mmol/L 4.1 mmol/L Chloride Level 109 mmol/L 108 mmol/L Carbon Dioxide Level 26 mmol/L 25 mmol/L Anion Gap 10.0 mmol/L 10.0 mmol/L Blood Urea Nitrogen 21 mg/dl 25 mg/dl Creatinine 0.84 mg/dl 1.00 mg/dl Est Creatinine Clear Calc Drug Dose 52.6 ml/min 44.2 ml/min Estimated GFR () 71.4 57.8 Estimated GFR (Non- 61.6 49.9 BUN/Creatinine Ratio 25.4 24.5 Random Glucose 80 mg/dl 149 mg/dl Lactic Acid Level 0.7 mmol/L Calcium Level 8.2 mg/dl 8.6 mg/dl Bedside Glucose 134 mg/dl Phosphorus Level 3.5 mg/dl Magnesium Level 2.3 mg/dl Total Creatine Kinase 136 U/L Creatine Kinase MB 2.6 ng/ml Creatine Kinase MB Ratio 1.9 Test 04/24/16 13:50 04/24/16 16:40 Urine Color YELLOW Urine Appearance CLEAR Urine pH 6.0 Urine Specific [place] 1.018 Urine Protein NEG Urine Glucose (UA) NEG Urine Ketones NEG Urine Occult Blood NEG Urine Nitrite NEG Urine Bilirubin NEG Urine Urobilinogen NEG Urine Leukocyte Esterase NEG Total Creatine Kinase 106 U/L Creatine Kinase MB 2.0 ng/ml Creatine Kinase MB Ratio 1.9 Troponin I 0.062 ng/ml Assessment & Plan Reason Critically Ill: Patient critically ill due to hypotensive episode and severe aortic stenosis PLAN: Neuro: Convulsive syncope without postictal period Resp: Stable on room air CV: Severe aortic stenosis, will need evaluation for possible valvular intervention avoid any afterload reduction Fluids/Renal: Avoid dehydration, given 2 L bolus ID: Started on doxycycline for possible bilateral lower extremity cellulitis by hospitalist service GI/Nutrition: Tolerating diet Heme: Anemia, chronic Endocrine: Blood sugars per protocol Patient is a full code I have personally spent 90 minutes of critical care time in the direct management of this patient. This is a life/limb threatening event. This includes time spent evaluating patient, direct bedside care, chart review, placing orders, interpretation of diagnostic studies, discussion with consultants, patient, and family members, as well as other required patient management activities. This time is exclusive of all separately billable procedures, and teaching time and separate from and in addition to any other critical care service time.
[2016-04-24] MEDS: LATANOPROST 0.005% OP SOLN 2.5 ML BTL OPB SCH (20:55)
[2016-04-24] MEDS: FLINTSTONES COMPLETE CHEWABLE TAB PO SCH (20:56)
[2016-04-24] MEDS: ENOXAPARIN 40 MG/0.4 ML SYR SC SCH (20:57)
[2016-04-25] VITALS (10 sets, daily range): BP systolic 93–124; BP diastolic 59–73; PULSE 60–76; TEMP 36.5–36.8; O2SAT 94–97
[2016-04-25 01:13] LABS: CKMB/CK RATIO 1.5 (0-3.0)
[2016-04-25] MEDS: LEVOTHYROXINE 100 MCG TAB PO SCH (06:13)
[2016-04-25 07:06] LABS: BASO % 0.5 %; BASO ABS # 0.02 K/uL (0-0.2); COMPLETE YES; EOS % 2.3 %; HEMATOCRIT 29.8 % (37-47); IG% 0.2 %; LYMPH % 33.9 %; LYMPH ABS # 1.49 K/uL (1.2-3.4); MEAN CELL VOLUME 91.1 fL (80-100); MEAN CORPUSCULAR HEMOGLOBIN 29.7 pg (25-34); MEAN CORPUSCULAR HGB CONC 32.6 g/dl (32-36); MEAN PLATELET VOLUME 10.5 fL (7.4-10.4); MONO % 7.3 %; NEUT % 55.8 %; PLATELET COUNT 180 K/uL (130-400); RED BLOOD COUNT 3.27 M/uL (4.2-5.4)
[2016-04-25 07:44] LABS: BUN/CREATININE RATIO 23.4 (10-20); CALCIUM 8.5 mg/dl (8.5-10.1); CREATININE 0.79 mg/dl (0.60-1.20); POTASSIUM 3.9 mmol/L (3.5-5.1)
[2016-04-25] MEDS: FLINTSTONES COMPLETE CHEWABLE TAB PO SCH (08:46)
[2016-04-25] MEDS: DOXYCYCLINE HYCLATE 100 MG CAP PO SCH ×3 (08:47→21:00)
--- NOTE | 2016-04-25 09:03 | Progress Note ---
Medicine Progress Note Date & Time of Visit: Apr 25, 2016 at 08:55. Subjective seen sitting up in bed, alert, pleasant, comfortable states she feels better overall no dizziness, chest pain, dyspnea, palpitations left leg pain also resolving no other symptoms would like to be discharged today Objective Last 8 Hrs Date Time Temp Pulse Resp B/P Pulse Ox O2 Delivery O2 Flow Rate FiO2 04/25/16 08:44 76 114/61 04/25/16 07:16 36.5 63 20 107/64 94 Room Air 04/25/16 04:00 Room Air 04/25/16 04:00 36.7 72 22 98/60 95 Room Air Physical Exam: General- oriented x 3, not in distress, speaks in sentences with no effort Head- atraumatic Eyes- anicteric Neck- supple, no JVD Lungs- clear breath sounds bilaterally, no rales/wheeze Heart- normal rate, regular rhythm; (+) grade 4-5/6 holosystolic murmur Abdomen- normal bowel sounds, soft, nontender Extremities- (+) grade 1 lower leg edema, mild erythema and warmth, dry skin on the right lower leg (+) small wound on the left popliteal region Neuro- alert, oriented x 3 no gross focal deficits Skin- warm & dry Laboratory Results: Last 24 Hours Test 04/24/16 13:50 04/24/16 16:40 04/25/16 00:43 04/25/16 06:50 Urine Color YELLOW Urine Appearance CLEAR Urine pH 6.0 Urine Specific [place] 1.018 Urine Protein NEG Urine Glucose (UA) NEG Urine Ketones NEG Urine Occult Blood NEG Urine Nitrite NEG Urine Bilirubin NEG Urine Urobilinogen NEG Urine Leukocyte Esterase NEG Total Creatine Kinase 106 U/L 92 U/L Creatine Kinase MB 2.0 ng/ml 1.4 ng/ml Creatine Kinase MB Ratio 1.9 1.5 Troponin I 0.062 ng/ml 0.045 ng/ml White Blood Count 4.40 K/uL Red Blood Count 3.27 M/uL Hemoglobin 9.7 g/dL Hematocrit 29.8 % Mean Corpuscular Volume 91.1 fL Mean Corpuscular Hemoglobin 29.7 pg Mean Corpuscular Hemoglobin Concent 32.6 g/dl Platelet Count 180 K/uL Mean Platelet Volume 10.5 fL Neutrophils (%) (Auto) 55.8 % Lymphocytes (%) (Auto) 33.9 % Monocytes (%) (Auto) 7.3 % Eosinophils (%) (Auto) 2.3 % Basophils (%) (Auto) 0.5 % Neutrophils # (Auto) 2.46 K/uL Lymphocytes # (Auto) 1.49 K/uL Monocytes # (Auto) 0.32 K/uL Eosinophils # (Auto) 0.10 K/uL Basophils # (Auto) 0.02 K/uL RDW Standard Deviation 50.9 fL RDW Coefficient of Variation 15.3 % Immature Granulocyte % (Auto) 0.2 % Immature Granulocyte # (Auto) 0.01 K/uL Sodium Level 146 mmol/L Potassium Level 3.9 mmol/L Chloride Level 109 mmol/L Carbon Dioxide Level 29 mmol/L Anion Gap 8.0 mmol/L Blood Urea Nitrogen 19 mg/dl Creatinine 0.79 mg/dl Est Creatinine Clear Calc Drug Dose 56.0 ml/min Estimated GFR () 76.9 Estimated GFR (Non- 66.4 BUN/Creatinine Ratio 23.4 Random Glucose 104 mg/dl Calcium Level 8.5 mg/dl Assessment & Plan 89 year old female with history of Aortic Stenosis, Hypertension, Lymphedema, Anemia presenting with left leg pain. SYNCOPE LIKELY SECONDARY TO ORTHOSTATIC HYPOTENSION, IN THE SETTING OF SEVERE AORTIC STENOSIS - was given Lasix on admission - after syncope, was given 1.5L NSS Lisinopril held, Atenolol decreased to 12.5mg daily - ECHO: Hyperdynamic LV systolic function, EF >70%. * No segmental left ventricular wall motion abnormalities are noted. * Grade II diastolic dysfunction. * Heavily calcified aortic valve, number of leaflets undetermined, reduced systolic excursion. Severe aortic stenosis with Vmax of 5.4 m/s, PGmax of 115 mmHg. Mild aortic regurgitation. * RVSP of 20-30 mmHg. - BP improving awaiting Cardiology Eval re: Severe Aortic Stenosis LOWER EXTREMITY EDEMA /CELLULITIS/LEFT POPLITEAL REGION WOUND - Leg Doppler: no DVT Femur Xray: no fracture - avoid diuretics to prevent dehydration , intravascular vol depletion in the setting of Severe Aortic Valve Stenosis Day 2 of Doxycycline Ortho consulted Anemia Hg at ~9 monitor as outpatient FULL CODE DVT PROPHYLAXIS sub q heparin DISPOSITION PT/OT eval today d/c when cleared by Cardio and Ortho Current Inpatient Medications: Current Inpatient Medications Medications (Trade) Dose Ordered Sig/Ambar Route Start Time Stop Time Status Last Admin Dose Admin Enoxaparin Sodium (Lovenox Inj) 40 mg Q24H SC 04/23/16 22:00 05/23/16 21:59 04/24/16 20:57 40 MG Acetaminophen (Tylenol Tab) 650 mg Q4H PRN PO 04/23/16 20:45 05/23/16 20:44 Nitroglycerin (Nitrostat Tab) 0.4 mg UD PRN SL 04/23/16 20:45 05/23/16 20:44 Tramadol HCl (Ultram Tab) 25 mg Q6H PRN PO 04/23/16 20:45 05/23/16 20:44 Hydromorphone HCl (Dilaudid Inj) 0.5 mg Q3H PRN IV 04/23/16 20:45 05/07/16 20:44 Aspirin (Ecotrin Tab) 325 mg DAILY PO 04/24/16 09:00 05/24/16 08:59 Future hold Latanoprost (Xalatan Oph Soln) 1 drops HS OPB 04/23/16 21:00 05/23/16 20:59 04/24/16 20:55 1 DROPS Levothyroxine Sodium (Synthroid Tab) 100 mcg DAILYBB PO 04/24/16 06:00 05/24/16 06:59 04/25/16 06:13 100 MCG Multivitamins (Flintstones Complete Tab) 0.5 tab QAM PO 04/24/16 09:00 05/24/16 08:59 04/25/16 08:46 0.5 TAB Lisinopril (Zestril Tab) 2.5 mg DAILY PO 04/24/16 09:00 05/24/16 08:59 Future Hold Atenolol (Tenormin Tab) 12.5 mg DAILY PO 04/24/16 09:00 05/24/16 08:59 04/25/16 08:47 12.5 MG Ondansetron HCl (Zofran Inj) 4 mg Q8H PRN IV 04/24/16 09:00 05/24/16 08:59 04/24/16 08:40 4 MG Doxycycline Hyclate (Vibramycin Cap) 100 mg BID PO 04/24/16 12:00 05/04/16 11:59 04/25/16 08:47 100 MG Nystatin (Mycostatin Powder) 1 appln PRN PRN EXT 04/24/16 14:30 05/24/16 14:29
--- NOTE | 2016-04-25 11:14 | CARDIOLOGY CONSULTATION ---
DATE OF CONSULTATION: 04/25/2016 REFERRING PHYSICIAN: Dr. Gustafson. REASON FOR CONSULTATION: Aortic stenosis. HISTORY OF PRESENT ILLNESS: This is an 89-year-old female who has a history of a left prosthetic hip and right knee. According to patient, she has had chronic pain in her left hip and right knee ever since her surgery. On the day of admission, her left hip was a little bit more uncomfortable and she was brought to the Emergency Department by her family. She also has a history of aortic stenosis. By our records, it would appear that she last saw cardiology in 1999. Echocardiogram performed this admission indicates severe calcific aortic stenosis. The patient has no current symptoms. She did have a syncopal event during this hospital admission, which was most likely a combination of Lasix given in the Emergency Department and the aortic stenosis. As an outpatient she has experienced no progressive shortness of breath or chest pain. She has had no syncopal events, dizziness or lightheadedness. The patient is adamant about not considering any surgical procedures for her heart. She states that she has lived a good life and her is paid for. She does not want to put herself through any type of surgical procedures, or interventions regarding her heart. ALLERGIES: No known medical allergies. PAST MEDICAL HISTORY: The patient has in addition to the history of chief complaint, history of lymphedema and hypertension. She also has a history of obesity and dyslipidemia. She has multiple joints involved with osteoarthritis. According to our records, she has stage III kidney disease. SOCIAL HISTORY: She lives independently. She is a nonsmoker. FAMILY MEDICAL HISTORY: Noncontributory. REVIEW OF SYSTEMS: A 10-point review of systems is negative except for the history of chief complaint. PHYSICAL EXAMINATION: GENERAL: She is alert and oriented. VITAL SIGNS: Blood pressure is 114/61, pulse is regular at 76, she is afebrile. HEENT: She is normocephalic. Pupils are equal and reactive to light. Mucous membranes are moist. NECK: The neck veins are flat. Carotids have good upstrokes bilaterally without bruits. Thyroid is nonpalpable. RESPIRATORY: Breath sounds equal bilaterally and clear to auscultation. CARDIOVASCULAR: Heart has a regular rhythm. There is a harsh systolic murmur along the left sternal border radiating to the carotids. GASTROINTESTINAL: Abdomen is soft, nontender without organomegaly. Extremities are free of edema, digit clubbing, or cyanosis. NEUROLOGIC: Grossly intact. SKIN: Warm to touch. LYMPH NODES: Negative to palpation. LABORATORY DATA: Hemoglobin is 9.7, WBC count is 4.4, potassium is 3.9, creatinine is 0.79. IMPRESSION: 1. Severe calcific aortic stenosis. 2. Syncope due to dehydration from diuretics and aortic stenosis. 3. Chronic left hip and right knee pain. RECOMMENDATIONS: As outlined above, the patient is not interested in any intervention other than medical therapy for her aortic stenosis. I do not believe that this is a bad decision as any procedure would be very high risk. We will continue to follow along with you during her hospital stay. SARAH BETH
--- NOTE | 2016-04-25 11:37 | CONSULTATION REPORT ---
DATE OF CONSULTATION: 04/25/2016 REASON FOR CONSULT: Left thigh pain. HISTORY OF PRESENT ILLNESS: The patient is an 89-year-old white female known to our practice who is status post left DAVID minimally invasive by Dr. Tomer Cevallos 10 years ago. She is a pleasant, elderly white female who states that she was one of the first folks to have the minimally invasive [address] Cevallos at that time. She states that she has had pain in her left thigh off and on for quite some time now. She had seen Dr. Cevallos in the past few years back, who felt it was more likely DJD related in her low back and pelvic region actually than to the left hip. She states today that she no longer has the left thigh pain that she was having and she is feeling much better. She feels that the rest that she has had here at the hospital as well as some PT that she has had has helped improve that. She states that she has had difficulty with ambulation as far as her keeping her balance and that a lot of times when she would get up out of a chair, she would feel unsteady when trying to get to her walker or assistive device. She currently denies low back pain at this time. She denies any pelvic pain and again no pain down the left lower extremity. She has a longstanding history of lymphedema, which she states has affected her ambulation as well and how much she can get around. She states today that her legs look much better to her and feel better. She denies any overt weakness of the left lower extremity compared to the right, nor of the upper extremities at this time. She denies any type of erythema over the lateral portion of the hip and no point tenderness. PAST MEDICAL HISTORY: Hypertension, lymphedema, aortic stenosis, DJD, chronic anemia. She states that one of her cardiologists stated that she needed a valve replacement and she is contemplating this at this point in time. PAST SURGICAL HISTORY: She has had a right total knee arthroplasty in the past in 2008 and her left total hip replacement was done in 2007. History of retinal repair in the past and gynecological procedures. Family history and social history as per admitting history and physical. MEDICATIONS: Taken at home, aspirin 325 mg p.o. daily, atenolol 25 mg p.o. daily, fish oil 1 cap p.o. b.i.d., glucosamine 500 mg p.o. b.i.d., Advil 200 mg p.o. p.r.n., Xalatan 0.005% ophthalmic solution 1 drop OPB at bedtime, levothyroxine 100 mcg p.o. daily, lisinopril 20 mg p.o. daily, multivitamin half tab p.o. daily. ALLERGIES: NKDA. REVIEW OF SYSTEMS: As per admitting history and physical. PHYSICAL EXAMINATION: VITAL SIGNS: This morning temperature was 36.5, pulse 76, BP 114/61, pulse ox initially was 94% on room air earlier this morning. GENERAL: The patient is a well-developed, well-nourished white female who is awake, alert and oriented x3 and in no acute distress, pleasant and cooperative. EXTREMITIES: On examination of her left lower extremity, she has moderate lymphedema to about mid calf on both legs actually. Right is a little bit greater than left. She is nontender on palpation in these areas. She states that her legs are looking much better today. She has a small area on the back of her popliteal fossa, which she states was due to having her TONJA hose on her swollen legs, which caused a small skin breakdown which they have been treating. On examination of her left thigh where she has been having the discomfort, the thigh does not appear to be swollen or erythematous at this time. Size appears equal to the right thigh. She has old incisions from her previous left DAVID, which are well healed and benign. She is nontender on palpation of the thigh in general. No pain over the trochanteric bursa and no pain anterior, posterior and medial lateral as noted. She has no pain whatsoever with the left thigh during internal and external rotation and I can flex her hip to 90 degrees without difficulty and without pain and she has full extension without discomfort. Abduction and adduction are essentially within normal limits without discomfort. Strengths appear to be equal in the upper and lower extremities at this time. NEUROLOGIC: No apparent deficits at this time noted and neurologically intact. ASSESSMENT: Left thigh pain and essentially resolved at this time. X-rays of the left femur, films reviewed by Dr. Florencio Cevallos and there are no obvious fractures seen at this time. She has an area near the neck of her hip that is either likely heterotopic ossification, but more likely may be possible trochanteric fracture that happened post-surgically. The femoral stem on the acetabulum appear to be well fixed and there are no lucencies noted. PLAN: At this time, the patient and I have discussed that she has a list of exercises that she has been neglecting to do at home and will get back on her regular schedule. She also has a low seated stationary bicycle that she likes to ride and will start using this again as well. She can use ibuprofen 200-400 mg p.o. every 8 hours p.r.n. pain in the left thigh if it begins again. If it continues, she can follow up with Dr. Cevallos in the office and if indeed she does have the trochanteric fracture this would weaken her abductors and causes some discomfort and obviously gait disturbance somewhat but this appears old and appears to be nothing new. The patient states that her overall symptoms of her left thigh have essentially resolved and she is in agreement that she will follow up with Dr. Cevallos in the office if the symptoms arise again.
[2016-04-25] MEDS: ASPIRIN 325 MG ECTAB PO SCH (11:52)
[2016-04-25] MEDS: LORAZEPAM 0.5 MG TAB PO PRN ×2 (12:13→20:17)
[2016-04-25] MEDS: LATANOPROST 0.005% OP SOLN 2.5 ML BTL OPB SCH (20:14)
[2016-04-25] MEDS: ENOXAPARIN 40 MG/0.4 ML SYR SC SCH ×2 (20:15→21:25)
[2016-04-26] VITALS (7 sets, daily range): BP systolic 107–120; BP diastolic 61–70; PULSE 59–72; TEMP 36.4–37; O2SAT 93–96
[2016-04-26 07:14] LABS: BASO % 0.2 %; BASO ABS # 0.01 K/uL (0-0.2); COMPLETE YES; EOS % 1.6 %; HEMATOCRIT 30.1 % (37-47); IG% 0.2 %; LYMPH % 25.2 %; LYMPH ABS # 1.44 K/uL (1.2-3.4); MEAN CELL VOLUME 89.6 fL (80-100); MEAN CORPUSCULAR HEMOGLOBIN 29.2 pg (25-34); MEAN CORPUSCULAR HGB CONC 32.6 g/dl (32-36); MEAN PLATELET VOLUME 10.8 fL (7.4-10.4); MONO % 9.1 %; NEUT % 63.7 %; PLATELET COUNT 179 K/uL (130-400); RED BLOOD COUNT 3.36 M/uL (4.2-5.4); WHITE BLOOD COUNT 5.71 K/uL (4.8-10.8)
[2016-04-26 07:39] LABS: BUN/CREATININE RATIO 24.3 (10-20); CALCIUM 8.4 mg/dl (8.5-10.1); CREATININE 0.81 mg/dl (0.60-1.20); POTASSIUM 4.2 mmol/L (3.5-5.1)
--- NOTE | 2016-04-26 09:56 | CARDIOLOGY PROGRESS NOTE ---
DATE: 04/26/2016 DATE: 04/26/2016. FOLLOW-UP VISIT SUBJECTIVE: The patient is an 89-year-old female with a history of a prosthetic left hip with increased pain. She was admitted because of left hip pain but after admission had an echocardiogram that showed severe calcific aortic stenosis. The patient expressed to me yesterday when she was lucid that she did not want any surgery or intervention for the aortic stenosis. Last night she became combative and disoriented. Through the night she remained disoriented and this morning she has been given sedation and is currently resting comfortably. She had no evidence of cardiac arrhythmias on her telemetry by my review. No symptoms of dizziness or syncope and she remained hemodynamically stable. OBJECTIVE: GENERAL: She is alert and oriented in no acute distress. VITAL SIGNS: Blood pressure is 110/70, pulse is regular at 72. She is afebrile. HEAD, EYES, EARS, NOSE, AND THROAT: She is normocephalic. Pupils are equal and reactive to light. Mucous membranes are moist. NECK: The neck veins are flat. Carotids have good upstrokes bilaterally without bruits. RESPIRATORY: Breath sounds equal bilaterally and clear to auscultation. CARDIOVASCULAR: Heart has a regular rhythm. There is a harsh systolic murmur along the left sternal border. GASTROINTESTINAL: Abdomen is soft, nontender without organomegaly. EXTREMITIES: Free of edema, digit clubbing, or cyanosis. NEUROLOGIC: Grossly intact. SKIN: Warm to touch. LYMPH NODES: Negative to palpation. IMPRESSION: 1. Chronic left hip pain following hip surgery. 2. Sundowning in an elderly patient with dementia and combativeness. 3. Severe aortic stenosis. RECOMMENDATIONS: The orthopedic consultation is appreciated. The plan is conservative management of the patient's hip discomfort with some physical therapy and possible rehab. Her mental status changes, however over the past 24 hours which most likely reflect the patient's early dementia and sundowning in the elderly may make rehabilitation problematic. SARAH BETH
[2016-04-26] MEDS: FLINTSTONES COMPLETE CHEWABLE TAB PO SCH (11:47)
[2016-04-26] MEDS: ASPIRIN 325 MG ECTAB PO SCH ×2 (11:47→15:13)
[2016-04-26] MEDS: LEVOTHYROXINE 100 MCG TAB PO SCH (11:47)
[2016-04-26] MEDS: DOXYCYCLINE HYCLATE 100 MG CAP PO SCH ×3 (11:48→21:30)
[2016-04-26] MEDS ORDERED: HALOPERIDOL LACTATE 5 MG/ML 1 ML VIAL IM ONE (15:00)
[2016-04-26] MEDS ORDERED: HALOPERIDOL LACTATE 5 MG/ML 1 ML VIAL IM PRN (16:45)
[2016-04-26] MEDS: ACETAMINOPHEN 325 MG TAB PO PRN (21:29)
[2016-04-26] MEDS: LATANOPROST 0.005% OP SOLN 2.5 ML BTL OPB SCH (21:29)
[2016-04-26] MEDS: ENOXAPARIN 40 MG/0.4 ML SYR SC SCH (21:30)
[2016-04-27] VITALS (8 sets, daily range): BP systolic 93–132; BP diastolic 48–79; PULSE 55–71; TEMP 36.5–36.9; O2SAT 93–99
[2016-04-27] MEDS: LEVOTHYROXINE 100 MCG TAB PO SCH (06:13)
[2016-04-27 07:37] LABS: BASO % 0.2 %; BASO ABS # 0.01 K/uL (0-0.2); COMPLETE YES; EOS % 2.8 %; HEMATOCRIT 31.9 % (37-47); IG% 0.2 %; LYMPH % 38.1 %; LYMPH ABS # 1.64 K/uL (1.2-3.4); MEAN CELL VOLUME 89.6 fL (80-100); MEAN CORPUSCULAR HEMOGLOBIN 29.2 pg (25-34); MEAN CORPUSCULAR HGB CONC 32.6 g/dl (32-36); MEAN PLATELET VOLUME 10.6 fL (7.4-10.4); MONO % 7.2 %; NEUT % 51.5 %; PLATELET COUNT 185 K/uL (130-400); RED BLOOD COUNT 3.56 M/uL (4.2-5.4); WHITE BLOOD COUNT 4.31 K/uL (4.8-10.8)
--- NOTE | 2016-04-27 07:54 | Progress Note ---
Medicine Progress Note Date & Time of Visit: Apr 27, 2016 at 07:54. delayed entry date of service 04/26/15 Subjective was confused overnight, had to be placed on 1:1 taken off 1:1 during time of my exam sitting up in bedside chair calm, cooperative, oriented x 2 denies chest pain, dyspnea, dizziness, palpitations no leg pain denies other symptoms Objective Last 8 Hrs Date Time Temp Pulse Resp B/P Pulse Ox O2 Delivery O2 Flow Rate FiO2 04/27/16 04:00 Room Air 04/27/16 04:00 36.7 56 18 93/51 95 Room Air 04/27/16 00:00 36.8 59 18 100/48 96 Room Air 04/26/16 23:59 Room Air Physical Exam: General- oriented x 3, not in distress, speaks in sentences with no effort Eyes- anicteric Neck- no JVD Lungs- clear breath sounds bilaterally, no rales/wheeze Heart- normal rate, regular rhythm; (+) grade 4-5/6 holosystolic murmur Abdomen- normal bowel sounds, soft, nontender Extremities- (+) grade 1 lower leg edema, no erythema and warmth, dry skin on the right lower leg (+) small wound on the left popliteal region Neuro- alert, oriented x 3 no gross focal deficits Skin- warm & dry Laboratory Results: Last 24 Hours Test 04/27/16 07:20 White Blood Count 4.31 K/uL Red Blood Count 3.56 M/uL Hemoglobin 10.4 g/dL Hematocrit 31.9 % Mean Corpuscular Volume 89.6 fL Mean Corpuscular Hemoglobin 29.2 pg Mean Corpuscular Hemoglobin Concent 32.6 g/dl Platelet Count 185 K/uL Mean Platelet Volume 10.6 fL Neutrophils (%) (Auto) 51.5 % Lymphocytes (%) (Auto) 38.1 % Monocytes (%) (Auto) 7.2 % Eosinophils (%) (Auto) 2.8 % Basophils (%) (Auto) 0.2 % Neutrophils # (Auto) 2.22 K/uL Lymphocytes # (Auto) 1.64 K/uL Monocytes # (Auto) 0.31 K/uL Eosinophils # (Auto) 0.12 K/uL Basophils # (Auto) 0.01 K/uL RDW Standard Deviation 49.5 fL RDW Coefficient of Variation 15.0 % Immature Granulocyte % (Auto) 0.2 % Immature Granulocyte # (Auto) 0.01 K/uL Assessment & Plan 89 year old female with history of Aortic Stenosis, Hypertension, Lymphedema, Anemia presenting with left leg pain. SYNCOPE LIKELY SECONDARY TO ORTHOSTATIC HYPOTENSION, IN THE SETTING OF SEVERE AORTIC STENOSIS - was given Lasix on admission - after syncope, was given 1.5L NSS Lisinopril held, Atenolol decreased to 12.5mg daily - ECHO: Hyperdynamic LV systolic function, EF >70%. * No segmental left ventricular wall motion abnormalities are noted. * Grade II diastolic dysfunction. * Heavily calcified aortic valve, number of leaflets undetermined, reduced systolic excursion. Severe aortic stenosis with Vmax of 5.4 m/s, PGmax of 115 mmHg. Mild aortic regurgitation. * RVSP of 20-30 mmHg. - BP stable overall, monitor while on lower dose Atenolol, off Lisinopril evaluated by Cardiology, no intervention recommended at this time LOWER EXTREMITY EDEMA /CELLULITIS/LEFT POPLITEAL REGION WOUND - Leg Doppler: no DVT Femur Xray: no fracture - avoid diuretics to prevent dehydration , intravascular vol depletion in the setting of Severe Aortic Valve Stenosis Day 3 of Doxycycline, improving Ortho consulted: possible ossification vs. fracture on trochanteric neck, recommend conservative measures, PT, close ff up with Ortho Anemia Hg at ~9 monitor as outpatient FULL CODE DVT PROPHYLAXIS sub q heparin DISPOSITION possible d/c to Rehab once accepted Current Inpatient Medications: Current Inpatient Medications Medications (Trade) Dose Ordered Sig/Ambar Route Start Time Stop Time Status Last Admin Dose Admin Enoxaparin Sodium (Lovenox Inj) 40 mg Q24H SC 04/23/16 22:00 05/23/16 21:59 04/26/16 21:30 40 MG Acetaminophen (Tylenol Tab) 650 mg Q4H PRN PO 04/23/16 20:45 05/23/16 20:44 04/26/16 21:29 650 MG Nitroglycerin (Nitrostat Tab) 0.4 mg UD PRN SL 04/23/16 20:45 05/23/16 20:44 Tramadol HCl (Ultram Tab) 25 mg Q6H PRN PO 04/23/16 20:45 05/23/16 20:44 Aspirin (Ecotrin Tab) 325 mg DAILY PO 04/24/16 09:00 05/24/16 08:59 Future hold 04/26/16 15:13 325 MG Latanoprost (Xalatan Oph Soln) 1 drops HS OPB 04/23/16 21:00 05/23/16 20:59 04/26/16 21:29 1 DROPS Levothyroxine Sodium (Synthroid Tab) 100 mcg DAILYBB PO 04/24/16 06:00 05/24/16 06:59 04/27/16 06:13 100 MCG Multivitamins (Flintstones Complete Tab) 0.5 tab QAM PO 04/24/16 09:00 05/24/16 08:59 04/25/16 08:46 0.5 TAB Lisinopril (Zestril Tab) 2.5 mg DAILY PO 04/24/16 09:00 05/24/16 08:59 Future Hold Atenolol (Tenormin Tab) 12.5 mg DAILY PO 04/24/16 09:00 05/24/16 08:59 04/26/16 15:13 12.5 MG Ondansetron HCl (Zofran Inj) 4 mg Q8H PRN IV 04/24/16 09:00 05/24/16 08:59 04/24/16 08:40 4 MG Doxycycline Hyclate (Vibramycin Cap) 100 mg BID PO 04/24/16 12:00 05/04/16 11:59 04/26/16 21:30 100 MG Nystatin (Mycostatin Powder) 1 appln PRN PRN EXT 04/24/16 14:30 05/24/16 14:29 Lorazepam (Ativan Tab) 0.25 mg Q8H PRN PO 04/25/16 12:00 05/25/16 11:59 04/25/16 20:17 0.25 MG Haloperidol Lactate (Haldol Inj) 2.5 mg ONE PRN IM 04/26/16 16:45 05/26/16 16:44
[2016-04-27 08:10] LABS: BUN/CREATININE RATIO 26.9 (10-20); CALCIUM 8.2 mg/dl (8.5-10.1); CREATININE 0.84 mg/dl (0.60-1.20); POTASSIUM 3.7 mmol/L (3.5-5.1)
[2016-04-27] MEDS: ASPIRIN 325 MG ECTAB PO SCH (09:25)
[2016-04-27] MEDS: FLINTSTONES COMPLETE CHEWABLE TAB PO SCH (09:26)
[2016-04-27] MEDS: DOXYCYCLINE HYCLATE 100 MG CAP PO SCH ×2 (09:26→20:24)
--- NOTE | 2016-04-27 10:51 | CARDIOLOGY PROGRESS NOTE ---
DATE: 04/27/2016 DATE: 04/27/2016. FOLLOW-UP VISIT SUBJECTIVE: The patient is alert and sitting in a chair today. She had a good night's sleep and is oriented x3. She has no complaints this morning. She reaffirmed that she wants only conservative management for her heart problems. I think the plan is to try and work with her for physical therapy regarding her hip and possibly a rehab center before being discharged. OBJECTIVE: VITAL SIGNS: Blood pressure 130/80, pulse is regular at 55. She is afebrile. HEAD, EYES, EARS, NOSE, AND THROAT: She is normocephalic. Pupils are equal and reactive to light. Extraocular muscles are intact bilaterally. NECK: The neck veins are flat. Carotids have good upstrokes bilaterally without bruits. CARDIOVASCULAR: Heart has a regular rhythm. There is a harsh systolic murmur along the left sternal border. RESPIRATORY: Lungs are clear to auscultation bilaterally. GASTROINTESTINAL: Abdomen is soft, nontender without organomegaly. EXTREMITIES: Free of edema, digit clubbing, or cyanosis. NEUROLOGIC: Grossly intact. SKIN: Warm to touch. LYMPH NODES: Negative to palpation. IMPRESSION: 1. Chronic left hip pain following hip surgery. 2. Severe aortic stenosis. 3. Sundowning in an elderly patient with dementia and combativeness, which has now resolved. RECOMMENDATIONS: At this point, the patient will continue with physical therapy as tolerated and possibly a rehab center before being discharged home.
[2016-04-27] MEDS: ENOXAPARIN 40 MG/0.4 ML SYR SC SCH (20:24)
[2016-04-27] MEDS: LATANOPROST 0.005% OP SOLN 2.5 ML BTL OPB SCH (20:24)
[2016-04-27] MEDS: ACETAMINOPHEN 325 MG TAB PO PRN (22:15)
[2016-04-28 03:29] VITALS: BP 99/59; PULSE 66; TEMP 36.8; O2SAT 94
[2016-04-28] MEDS: LEVOTHYROXINE 100 MCG TAB PO SCH (06:15)
[2016-04-28 07:41] VITALS: BP 142/77; PULSE 64; TEMP 36.6; O2SAT 98
[2016-04-28] MEDS: FLINTSTONES COMPLETE CHEWABLE TAB PO SCH (08:29)
[2016-04-28] MEDS: ASPIRIN 325 MG ECTAB PO SCH (08:29)
[2016-04-28] MEDS: DOXYCYCLINE HYCLATE 100 MG CAP PO SCH (08:30)
[2016-04-28 11:19] VITALS: BP 119/63; PULSE 81; TEMP 36.5; O2SAT 91
[2016-04-28 11:42] VITALS: O2SAT 91
[2016-04-28 14:29] VITALS: BP 119/63; PULSE 81; TEMP 36.5; O2SAT 91
--- NOTE | 2016-04-28 16:45 | Progress Note ---
Medicine Progress Note Date & Time of Visit: Apr 28, 2016 at 16:38. Subjective sitting up in bed, in good spirits denies dizziness, chest pain, dyspnea no leg pain no other symptoms states she is ready for discharge today Objective Last 8 Hrs Date Time Temp Pulse Resp B/P Pulse Ox O2 Delivery O2 Flow Rate FiO2 04/28/16 14:29 36.5 81 18 91 Room Air 04/28/16 11:42 91 Room Air 04/28/16 11:19 36.5 81 18 119/63 91 Room Air Physical Exam: General- oriented x 3, not in distress, speaks in sentences with no effort Eyes- anicteric Neck- no JVD Lungs- clear breath sounds bilaterally, no rales/wheeze Heart- normal rate, regular rhythm; (+) grade 4-5/6 holosystolic murmur Abdomen- normal bowel sounds, soft, nontender Extremities- (+) mild lower leg edema, no erythema and warmth, dry skin on the right lower leg (+) small wound on the left popliteal region: no discharge Neuro- alert, oriented x 3 no gross focal deficits Skin- warm & dry Assessment & Plan 89 year old female with history of Aortic Stenosis, Hypertension, Lymphedema, Anemia presenting with left leg pain. SYNCOPE LIKELY SECONDARY TO ORTHOSTATIC HYPOTENSION, IN THE SETTING OF SEVERE AORTIC STENOSIS - was given Lasix on admission - after syncope, was given 1.5L NSS Lisinopril held, Atenolol decreased to 12.5mg daily - ECHO: Hyperdynamic LV systolic function, EF >70%. * No segmental left ventricular wall motion abnormalities are noted. * Grade II diastolic dysfunction. * Heavily calcified aortic valve, number of leaflets undetermined, reduced systolic excursion. Severe aortic stenosis with Vmax of 5.4 m/s, PGmax of 115 mmHg. Mild aortic regurgitation. * RVSP of 20-30 mmHg. - BP stable overall monitor while on lower dose Atenolol, off Lisinopril evaluated by Cardiology, no intervention recommended at this time monitor volume status closely follow up with Cardiology in ~2 weeks LOWER EXTREMITY EDEMA / POSSIBLE CELLULITIS/LEFT POPLITEAL REGION WOUND - Leg Doppler: no DVT Femur Xray: no fracture - avoid diuretics to prevent dehydration , intravascular vol depletion in the setting of Severe Aortic Valve Stenosis Day 4 of Doxycycline, improving Ortho consulted: possible ossification vs. fracture on trochanteric neck, recommend conservative measures, PT, close ff up with Ortho - continue Doxycycline 100mg bid x 3 more days follow up with Ortho in 1-2 weeks Anemia Hg at ~9 monitor as outpatient Episode of Delirium resolved please monitor avoid narcotics FULL CODE DVT PROPHYLAXIS sub q heparin given DISPOSITION d/c to [facility] ff up with PCP in 3-5 days ff up with Ortho in 1-2 weeks ff up with Cardiology in ~2 weeks Current Inpatient Medications: Current Inpatient Medications Medications (Trade) Dose Ordered Sig/Ambar Route Start Time Stop Time Status Last Admin Dose Admin Enoxaparin Sodium (Lovenox Inj) 40 mg Q24H SC 04/23/16 22:00 05/23/16 21:59 04/27/16 20:24 40 MG Acetaminophen (Tylenol Tab) 650 mg Q4H PRN PO 04/23/16 20:45 05/23/16 20:44 04/27/16 22:15 650 MG Nitroglycerin (Nitrostat Tab) 0.4 mg UD PRN SL 04/23/16 20:45 05/23/16 20:44 Tramadol HCl (Ultram Tab) 25 mg Q6H PRN PO 04/23/16 20:45 05/23/16 20:44 Aspirin (Ecotrin Tab) 325 mg DAILY PO 04/24/16 09:00 05/24/16 08:59 Future hold 04/28/16 08:29 325 MG Latanoprost (Xalatan Oph Soln) 1 drops HS OPB 04/23/16 21:00 05/23/16 20:59 04/27/16 20:24 1 DROPS Levothyroxine Sodium (Synthroid Tab) 100 mcg DAILYBB PO 04/24/16 06:00 05/24/16 06:59 04/28/16 06:15 100 MCG Multivitamins (Flintstones Complete Tab) 0.5 tab QAM PO 04/24/16 09:00 05/24/16 08:59 04/28/16 08:29 0.5 TAB Lisinopril (Zestril Tab) 2.5 mg DAILY PO 04/24/16 09:00 05/24/16 08:59 Future Hold Atenolol (Tenormin Tab) 12.5 mg DAILY PO 04/24/16 09:00 05/24/16 08:59 04/28/16 08:28 12.5 MG Ondansetron HCl (Zofran Inj) 4 mg Q8H PRN IV 04/24/16 09:00 05/24/16 08:59 04/24/16 08:40 4 MG Doxycycline Hyclate (Vibramycin Cap) 100 mg BID PO 04/24/16 12:00 05/04/16 11:59 04/28/16 08:30 100 MG Nystatin (Mycostatin Powder) 1 appln PRN PRN EXT 04/24/16 14:30 05/24/16 14:29 04/27/16 20:24 1 APPLN Lorazepam (Ativan Tab) 0.25 mg Q8H PRN PO 04/25/16 12:00 05/25/16 11:59 04/25/16 20:17 0.25 MG Haloperidol Lactate (Haldol Inj) 2.5 mg ONE PRN IM 04/26/16 16:45 05/26/16 16:44
[2016-04-28] MEDS ORDERED: NYSP EXT (16:51)
[2016-04-28] MEDS ORDERED: DXY100 PO (16:51)
[2016-04-28] MEDS ORDERED: TNR25 PO (16:51)
[2016-04-28] MEDS ORDERED: LEVO100T7 PO (16:51)
--- NOTE | 2016-04-28 16:57 | Discharge Instructions ---
Discharge Instructions Admission Reason for Admission: Elevated Troponin,Leg Swelling Discharge Discharge Diagnosis / Problem: LEG EDEMA CELLULITIS; SYNCOPE, SEVERE AORTIC STENOSIS Discharge Goals Goal(s): Diagnostic testing, Therapeutic intervention Activity Recommendations Activity Level: Assistance Required Therapies: Physical Therapy, Occupational Therapy . Additional Information Patient informed of condition: Yes Advance Directives: No (Unknown) DNR: No (patient is full code) Level of Care: Acute Rehab Communicable Disease: No Prognosis: Stable Instructions / Follow-Up Instructions / Follow-Up PLEASE MONITOR BLOOD PRESSURE DAILY. MONITOR LEG EDEMA AND LEFT LEG WOUND ON THE POPLITEAL REGION. MONITOR CBC. FOLLOW UP WITH PCP IN 3-[address]LLOW WITH ORTHO [address] HUNTLEY IN 1-2 WEEKS. PLEASE REFER TO HOSPITAL DISCHARGE FOR FURTHER DETAILS. Current Hospital Diet Patient's current hospital diet: Low Sodium Diet (2gm Na), AHA Diet (Heart Healthy) Discharge Diet Recommended Diet: AHA Diet (Heart Healthy) Fluid Restriction: 2000 ml (8 cups) Pending Studies Studies pending at discharge: no Physician Orders On Transfer Special Precautions: PLEASE MONITOR BLOOD PRESSURE DAILY. MONITOR LEG EDEMA AND LEFT LEG WOUND ON THE POPLITEAL REGION. MONITOR CBC. FOLLOW UP WITH PCP IN 3-5 [address]YS[address]LLOW WITH ORTHO [address] HUNTLEY IN 1-2 WEEKS. PLEASE REFER TO HOSPITAL DISCHARGE FOR FURTHER DETAILS. Vital Signs: BP DAILY Medical Emergencies . Who to Call and When: Medical Emergencies: If at any time you feel your situation is an emergency, please call 911 immediately. . Non-Emergent Contact Non-Emergency issues call your: Primary Care Provider Call Non-Emergent contact if: you have a fever, your pain is not controlled, wound has increased drainage, wound has increased redness, wound has increased pain, you have any medication questions . Past History Medical & Surgical History: (1) Lymphedema (2) Dyslipidemia (3) LVH (left ventricular hypertrophy) (4) Obesity (5) Aortic stenosis (6) Hypothyroidism (7) CKD (chronic kidney disease), stage III (8) HTN (hypertension) (9) Osteoarthritis (10) S/P total knee arthroplasty (11) History of dental surgery (12) H/O eye surgery (13) S/P total hip arthroplasty (14) S/P D&C (status post dilation and curettage) . "Provider Documentation" section prepared by Lee Cardoza. Core Measure Problem Core Measures: None
--- NOTE | 2016-04-28 17:05 | Discharge Summary ---
Discharge Summary Admission Date: Apr 23, 2016 at 19:41 Discharge Date: Apr 28, 2016 Discharge Disposition: Rehab Principal Diagnosis: SYNCOPE LIKELY SECONDARY TO ORTHOSTATIC HYPOTENSION, IN THE SETTING OF SEVERE AORTIC STENOSIS Secondary Diagnoses/Problems: LOWER EXTREMITY EDEMA / POSSIBLE CELLULITIS/LEFT POPLITEAL REGION WOUND Anemia Episode of Delirium Hypertension Consultations: Recycling Manager Dr. Flores, Ortho Dr. Cevallos Pending Studies/Follow-Up: PLEASE MONITOR BLOOD PRESSURE DAILY. MONITOR LEG EDEMA AND LEFT LEG WOUND ON THE POPLITEAL REGION. MONITOR CBC. FOLLOW UP WITH PCP IN 3-5 [address]YS[address] FOLLOW WITH ORTHO [address] CEVALLOS IN 1-2 WEEKS. PLEASE REFER TO HOSPITAL COURSE BELOW FOR FURTHER DETAILS. Medication Reconciliation New Medications: Atenolol (Atenolol) 25 Mg Tab 12.5 MG PO DAILY for 30 Days, #15 TAB 2 Refills Doxycycline Hyclate (Doxycycline Hyclate) 100 Mg Cap 100 MG PO BID for 3 Days, #6 CAP 0 Refills Nystatin (Nystop) 45 Appln/15 Gm Powd 1 APPLN EXT PRN PRN for Red Skin under abd panus for 30 Days Changed Medications: Levothyroxine Sodium (Levothyroxine Sodium) 100 Mcg Tab 1 TAB PO DAILYBB for 90 Days, TAB 3 Refills (Changed from: take 100 mg at least 1/2 hour before breakfast and other meds) at least 1/2 hour before breakfast and other meds Continued Medications: Aspirin Enteric Coated (Ecotrin Or Generic *) 325 Mg Ectab 325 MG PO DAILY, 0 Refills Fish Oil ([place]-3) 1 Ea Cap 1 CAP PO BID, CAP Glucosamine Sulfate (Glucosamine) 500 Mg Cap Unknown Dose PO BID Latanoprost (Xalatan 0.005% Oph Angelica) 0.005 % Angelica 1 DROP OPB HS, #2.5 ML 3 Refills Multivitamin (Multivitamin) Tab 0.5 TAB PO DAILY, 0 Refills Discontinued Medications: Atenolol (Tenormin) 25 Mg Tab 25 MG PO DAILY, 0 Refills Ibuprofen (Advil) 200 Mg Tab 200 MG PO DAILY, 0 Refills Lisinopril (Zestril) 20 Mg Tab 20 MG PO DAILY, TAB Admission Information HPI (per Admitting provider): PRIMARY CARE DOCTOR: Dr. Hoff. CHIEF COMPLAINT: Left leg swelling, pain. HISTORY OF PRESENT ILLNESS: Medical history significant for hypertension, lymphedema; aortic stenosis as per records, arthritis; chronic anemia (baseline hemoglobin 11). Patient has had pain on the left thigh for more than a year now. Seen by [facility] [place] [facility] in March 2015. As per patient, pain attributed to osteoarthritis. She was told that she was not a candidate for surgery. In the last few days more swelling on the left leg, more pain on the left thigh. Trouble moving around. No chest pain, no shortness of breath, no fever, no chills. Usual redness. for both legs Patient brought by family to the Emergency Room. Physical Exam (per Admitting): VITAL SIGNS: Blood pressure was noted to be 103/60, pulse rate 60, RR 18, temperature 36.5, sats 99 on room air. GENERAL: Noted to be an obese, pleasant, no respiratory distress. Looks younger for stated age. SKIN : pallor HEENT: Pale palpebral conjunctivae, dry mucosa. NECK: Short neck. LUNGS: Decreased breath sounds. HEART: Systolic murmur. ABDOMEN: Some distention, nontender. EXTREMITIES: bilateral lower extremity edema (chronic erythema as per px) tenderness on the left thigh. NEUROLOGIC: No gross focality. Hospital Course 89 year old female with history of Aortic Stenosis, Hypertension, Lymphedema, Anemia presenting with left leg pain. SYNCOPE LIKELY SECONDARY TO ORTHOSTATIC HYPOTENSION, IN THE SETTING OF SEVERE AORTIC STENOSIS - was given Lasix on admission - after syncope, was given 1.5L NSS Lisinopril held, Atenolol decreased to 12.5mg daily - ECHO: Hyperdynamic LV systolic function, EF >70%. * No segmental left ventricular wall motion abnormalities are noted. * Grade II diastolic dysfunction. * Heavily calcified aortic valve, number of leaflets undetermined, reduced systolic excursion. Severe aortic stenosis with Vmax of 5.4 m/s, PGmax of 115 mmHg. Mild aortic regurgitation. * RVSP of 20-30 mmHg. - BP stable overall monitor while on lower dose Atenolol, off Lisinopril evaluated by Cardiology, no intervention recommended at this time monitor volume status closely follow up with Cardiology in ~2 weeks LOWER EXTREMITY EDEMA / POSSIBLE CELLULITIS/LEFT POPLITEAL REGION WOUND - Leg Doppler: no DVT Femur Xray: no fracture - avoid diuretics to prevent dehydration , intravascular vol depletion in the setting of Severe Aortic Valve Stenosis Day 4 of Doxycycline, improving Ortho consulted: possible ossification vs. fracture on trochanteric neck, recommend conservative measures, PT, close ff up with Ortho - continue Doxycycline 100mg bid x 3 more days follow up with Ortho in 1-2 weeks Anemia Hg at ~9 monitor as outpatient Episode of Delirium resolved please monitor avoid narcotics Hypertension Atenolol decreased to 12.5mg po daily to prevent hypotension Lisinopril discontinued monitor FULL CODE DVT PROPHYLAXIS sub q heparin given DISPOSITION d/c to [facility] ff up with PCP in 3-5 days ff up with Ortho in 1-2 weeks ff up with Cardiology in ~2 weeks Total time spent on discharge = 40 minutes This includes examination of the patient, discharge planning, medication reconciliation, and communication with other providers. Discharge Instructions Discharge Instructions Admission Reason for Admission: Elevated Troponin,Leg Swelling Discharge Discharge Diagnosis / Problem: LEG EDEMA CELLULITIS; SYNCOPE, SEVERE AORTIC STENOSIS Discharge Goals Goal(s): Diagnostic testing, Therapeutic intervention Activity Recommendations Activity Level: Assistance Required Therapies: Physical Therapy, Occupational Therapy . Additional Information Patient informed of condition: Yes Advance Directives: No (Unknown) DNR: No (patient is full code) Level of Care: Acute Rehab Communicable Disease: No Prognosis: Stable Instructions / Follow-Up Instructions / Follow-Up PLEASE MONITOR BLOOD PRESSURE DAILY. MONITOR LEG EDEMA AND LEFT LEG WOUND ON THE POPLITEAL REGION. MONITOR CBC. FOLLOW UP WITH PCP IN 3-5 [address]YS[address] FOLLOW WITH ORTHO [address] CEVALLOS IN 1-2 WEEKS. PLEASE REFER TO HOSPITAL DISCHARGE FOR FURTHER DETAILS. Current Hospital Diet Patient's current hospital diet: Low Sodium Diet (2gm Na), AHA Diet (Heart Healthy) Discharge Diet Recommended Diet: AHA Diet (Heart Healthy) Fluid Restriction: 2000 ml (8 cups) Pending Studies Studies pending at discharge: no Physician Orders On Transfer Special Precautions: PLEASE MONITOR BLOOD PRESSURE DAILY. MONITOR LEG EDEMA AND LEFT LEG WOUND ON THE POPLITEAL REGION. MONITOR CBC. FOLLOW UP WITH PCP IN 3-5 [address]YS[address] FOLLOW WITH ORTHO [address] CEVALLOS IN 1-2 WEEKS. PLEASE REFER TO HOSPITAL DISCHARGE FOR FURTHER DETAILS. Vital Signs: BP DAILY Medical Emergencies . Who to Call and When: Medical Emergencies: If at any time you feel your situation is an emergency, please call 911 immediately. . Non-Emergent Contact Non-Emergency issues call your: Primary Care Provider Call Non-Emergent contact if: you have a fever, your pain is not controlled, wound has increased drainage, wound has increased redness, wound has increased pain, you have any medication questions . Past History Medical & Surgical History: (1) Lymphedema (2) Dyslipidemia (3) LVH (left ventricular hypertrophy) (4) Obesity (5) Aortic stenosis (6) Hypothyroidism (7) CKD (chronic kidney disease), stage III (8) HTN (hypertension) (9) Osteoarthritis (10) S/P total knee arthroplasty (11) History of dental surgery (12) H/O eye surgery (13) S/P total hip arthroplasty (14) S/P D&C (status post dilation and curettage) . "Provider Documentation" section prepared by Lee Cardoza. Core Measure Problem Core Measures: None
[2016-10-27] MEDS ORDERED: GLUCCAP PO (10:23)
[2016-10-27] MEDS ORDERED: SENN8.6T15 PO (10:25)
[2016-10-27] MEDS ORDERED: POLY1POW2 PO (10:26)
[2016-10-27] MEDS ORDERED: ACET-1311 PO (10:26)
[2016-10-27] MEDS ORDERED: DOCU100C31 PO (10:27)
[2016-10-27] MEDS ORDERED: MOML PO (10:27)
[2016-10-27] MEDS ORDERED: NYSCR30 EXT (10:28)
[2016-10-27] MEDS ORDERED: POTA10TA PO (10:30)
[2016-10-27] MEDS ORDERED: FURO-85 PO (10:31)
[2016-10-27] MEDS ORDERED: TRAM-10 PO (10:32)
[2016-10-27] MEDS ORDERED: NYST100010 TOP (10:34)
[2016-10-27] MEDS ORDERED: LOPE1CAP6 PO (10:35)
[2016-10-27] MEDS ORDERED: NAPR1TAB9 PO (10:36)
[2016-10-30] MEDS ORDERED: CEPH500C PO (11:29)
[2016-11-09] MEDS ORDERED: CEPH500C PO (09:27)
[2016-12-08] MEDS ORDERED: SULF800T23 PO (08:12)
[2017-01-22] MEDS ORDERED: CEFU1TAB36 PO (11:12)
[2017-01-22] MEDS ORDERED: LSX20 PO (11:12)
[2017-01-22] MEDS ORDERED: LCTX PO (11:12)
[2017-01-22] MEDS ORDERED: DXY100 PO (11:12)
[2017-01-22] MEDS ORDERED: WARF1TAB PO (11:12)
[2017-01-22] MEDS ORDERED: WARF5TAB90 PO (11:12)
[2017-01-22] MEDS ORDERED: ASPEC81 PO (11:12)
[2017-01-22] MEDS ORDERED: POTA10CA28 PO (11:12)
== END 2016-04-28 17:34 | DRG 603 ==
LOC: ENRESERVDT → ENRESERVTM → C.EDB 14:18 → C.2T 19:41 → C.MSICU 04-24 09:01 → C.2T 04-24 21:42
PROVIDERS: ADMIT Hospitalist; ATTEND Internal Medicine
DX: L03.116 Cellulitis of left lower limb (principal); I35.0 Nonrheumatic aortic (valve) stenosis; I95.1 Orthostatic hypotension; M79.89 Other specified soft tissue disorders; D64.9 Anemia, unspecified; I12.9 Hypertensive chronic kidney disease with stage 1 through stage 4 chronic kidney disease, or unspecified chronic kidney disease; N18.3 Chronic kidney disease, stage 3 (moderate); E78.5 Hyperlipidemia, unspecified; T50.2X5A Adverse effect of carbonic-anhydrase inhibitors, benzothiadiazides and other diuretics, initial encounter; Y92.009 Unspecified place in unspecified non-institutional (private) residence as the place of occurrence of the external cause; G89.29 Other chronic pain; M25.552 Pain in left hip; M25.561 Pain in right knee; Z96.651 Presence of right artificial knee joint; Z96.642 Presence of left artificial hip joint

== ENCOUNTER → 2016-05-31 | Outpatient (CLI) | payer OTHER ==
[~2016-05-31] MED LIST changes: +ACET-1311 PO; +ACET325T96 PO; +ASPEC81 PO; +ASPI325T39 PO; +CEFU1TAB36 PO; +CEPH500C PO; +CLC100 PO; +DOCU100C31 PO; +DXY100 PO; +FURO-85 PO; +GLUC-172 PO; +GLUCCAP PO; -IBUP-1050 PO; +IMD/2 PO; +LATA0.5S OPB; +LCTX PO; -LEVO-217 PO; +LEVO100T7 PO; +LINICRE TOP; -LISI20TA PO; +LOPE1CAP6 PO; +LSX20 PO; +MOML PO; +MOMLX PO; +NAPR-960 PO; +NAPR1TAB9 PO; +NYSCR30 EXT; +NYSCR30 TOP; +NYSP EXT; +NYST100010 TOP; +OMEG10002 PO; +OMEG10007 PO; +POLY1POW2 PO; +POLY335025 PO; +POTA10CA28 PO; +POTA10TA PO; +POTA20TA16 PO; +SENN8.6T15 PO; +SULF800T23 PO; +TNR25 PO; +WARF1TAB PO; +WARF5TAB90 PO
[2016-05-31 08:24] LABS: BLOOD UREA NITROGEN 25 mg/dl (7-18); BUN/CREATININE RATIO 32.2 (10-20); CALCIUM 8.5 mg/dl (8.5-10.1); CARBON DIOXIDE 26 mmol/L (21-32); CHLORIDE 110 mmol/L (98-107); CREATININE 0.76 mg/dl (0.60-1.20); GLUCOSE 84 mg/dl (70-99); POTASSIUM 4.1 mmol/L (3.5-5.1); SODIUM 145 mmol/L (136-145)
== END | disposition home or self-care (01) ==
LOC: C.LABSPEC 07:55
PROVIDERS: ATTEND Internal Medicine Cardiovascular Disease
DX: I35.0 Nonrheumatic aortic (valve) stenosis (principal)

== ENCOUNTER → 2016-09-06 | Outpatient (CLI) | payer OTHER ==
[~2016-09-06] MED LIST changes: +SENN1TAB86 PO; -SENN8.6T15 PO
[2016-09-06 12:49] LABS: BLOOD UREA NITROGEN 22 mg/dl (7-18); BUN/CREATININE RATIO 30.4 (10-20); CARBON DIOXIDE 26 mmol/L (21-32); CHLORIDE 108 mmol/L (98-107); CREATININE 0.71 mg/dl (0.60-1.20); GLUCOSE 81 mg/dl (70-99); POTASSIUM 4.1 mmol/L (3.5-5.1); SODIUM 142 mmol/L (136-145)
[2016-09-06 12:58] LABS: CALCIUM 8.5 mg/dl (8.5-10.1)
== END | disposition home or self-care (01) ==
LOC: C.LABSPEC 14:45
PROVIDERS: ATTEND Family Medicine
DX: N18.3 Chronic kidney disease, stage 3 (moderate) (principal); I51.7 Cardiomegaly; I10 Essential (primary) hypertension

== ENCOUNTER → 2016-11-01 | Outpatient (CLI) | payer OTHER ==
[~2016-11-01] MED LIST changes: -GLUC-172 PO; -MULT-506 PO; -SENN1TAB86 PO; +SENN8.6T15 PO
[2016-11-01 08:52] LABS: BASO % 0.2 %; BASO ABS # 0.01 K/uL (0-0.2); COMPLETE YES; EOS % 2.6 %; HEMATOCRIT 33.1 % (37-47); IG% 0.2 %; LYMPH % 20.9 %; LYMPH ABS # 1.05 K/uL (1.2-3.4); MEAN CELL VOLUME 83.4 fL (80-100); MEAN CORPUSCULAR HEMOGLOBIN 26.4 pg (25-34); MEAN CORPUSCULAR HGB CONC 31.7 g/dl (32-36); MONO % 10.1 %; PLATELET COUNT 166 K/uL (130-400); RED BLOOD COUNT 3.97 M/uL (4.2-5.4); WHITE BLOOD COUNT 5.03 K/uL (4.8-10.8)
[2016-11-01 09:05] LABS: BLOOD UREA NITROGEN 24 mg/dl (7-18); BUN/CREATININE RATIO 31.6 (10-20); CALCIUM 8.7 mg/dl (8.5-10.1); CARBON DIOXIDE 26 mmol/L (21-32); CHLORIDE 110 mmol/L (98-107); CREATININE 0.77 mg/dl (0.60-1.20); GLUCOSE 89 mg/dl (70-99); SODIUM 143 mmol/L (136-145)
== END | disposition home or self-care (01) ==
LOC: C.LABSPEC 08:20
PROVIDERS: ATTEND Nurse Practitioner Adult Health
DX: I10 Essential (primary) hypertension (principal); E03.9 Hypothyroidism, unspecified

== ENCOUNTER → 2016-11-29 | Outpatient (CLI) | payer OTHER ==
[2016-11-29 14:36] LABS: MANUAL MICROSCOPIC REQUIRED? NO; URINE APPEARANCE CLEAR (CLEAR); URINE BILIRUBIN NEG (NEG); URINE COLOR YELLOW; URINE NITRITE NEG (NEG); UROBILINOGEN NEG (NEG)
[2016-11-29 14:45] LABS: REVIEW REQ? NO
== END | disposition home or self-care (01) ==
LOC: C.LABSPEC 12:33
PROVIDERS: ATTEND Internal Medicine
DX: N39.0 Urinary tract infection, site not specified (principal)

== ENCOUNTER → 2017-01-03 | Outpatient (CLI) | payer OTHER ==
[~2017-01-03] MED LIST changes: -CEPH500C PO
[2017-01-03 11:05] LABS: HEMATOCRIT 33.7 % (37-47); MEAN CORPUSCULAR HEMOGLOBIN 28.1 pg (25-34); MEAN CORPUSCULAR HGB CONC 32.6 g/dl (32-36); MEAN PLATELET VOLUME 11.1 fL (7.4-10.4); PLATELET COUNT 165 K/uL (130-400); RED BLOOD COUNT 3.92 M/uL (4.2-5.4); WHITE BLOOD COUNT 4.02 K/uL (4.8-10.8)
[2017-01-03 11:13] LABS: PROTHROMBIN TIME (PATIENT) 10.9 SECONDS (9.0-12.0)
[2017-01-03 11:30] LABS: BASO % 0.5 %; BASO ABS # 0.02 K/uL (0-0.2); COMPLETE YES; ECHINOCYTES 1+; EOS % 4.2 %; IG% 0.2 %; LYMPH % 54.7 %; MONO % 6.7 %; NEUT % 33.7 %
[2017-01-03 11:32] LABS: BLOOD UREA NITROGEN 31 mg/dl (7-18); BUN/CREATININE RATIO 36.2 (10-20); CALCIUM 8.4 mg/dl (8.5-10.1); CARBON DIOXIDE 26 mmol/L (21-32); CHLORIDE 109 mmol/L (98-107); CREATININE 0.86 mg/dl (0.60-1.20); GLUCOSE 82 mg/dl (70-99); POTASSIUM 3.9 mmol/L (3.5-5.1); SODIUM 143 mmol/L (136-145)
== END | disposition home or self-care (01) ==
LOC: C.LABSPEC 08:14
PROVIDERS: ATTEND Internal Medicine Interventional Cardiology
DX: Z01.818 Encounter for other preprocedural examination (principal)

== ENCOUNTER 2017-01-18 09:53 | Inpatient (IN) | payer OTHER ==
[~2017-01-18] VITALS: Ht 165.1 cm; Wt 94.2 kg
[~2017-01-18 09:53] MED LIST changes: -ACET325T96 PO; -ASPEC81 PO; -ASPI325T39 PO; -ATEN-173 PO; -CEFU1TAB36 PO; -CLC100 PO; -DXY100 PO; -IMD/2 PO; -LCTX PO; -LINICRE TOP; -LSX20 PO; -MOMLX PO; -NAPR-960 PO; -NYSCR30 TOP; -OMEG10002 PO; -POLY335025 PO; -POTA10CA28 PO; -POTA20TA16 PO; -WARF1TAB PO; -WARF5TAB90 PO
[2017-01-18] MEDS ORDERED: POLY335025 PO (10:58)
[2017-01-18] MEDS ORDERED: NYST100010 TOP (10:58)
[2017-01-18] MEDS ORDERED: CLC100 PO (10:59)
[2017-01-18] MEDS ORDERED: FURO-85 PO (10:59)
[2017-01-18] MEDS ORDERED: TRAM-10 PO (10:59)
[2017-01-18] MEDS ORDERED: NAPR-960 PO (10:59)
[2017-01-18] MEDS ORDERED: LINICRE TOP (10:59)
[2017-01-18] MEDS ORDERED: NYSCR30 TOP (10:59)
[2017-01-18] MEDS ORDERED: SENN8.6T15 PO (10:59)
[2017-01-18] MEDS ORDERED: ASPI325T39 PO (10:59)
[2017-01-18] MEDS ORDERED: IMD/2 PO (10:59)
[2017-01-18] MEDS ORDERED: OMEG10002 PO (10:59)
[2017-01-18] MEDS ORDERED: POTA20TA16 PO (10:59)
[2017-01-18] MEDS ORDERED: LATA0.5S OPB (10:59)
[2017-01-18] MEDS ORDERED: LEVO100T7 PO (10:59)
[2017-01-18] MEDS ORDERED: ACET325T96 PO (10:59)
[2017-01-18] MEDS ORDERED: ATEN-173 PO (10:59)
[2017-01-18] MEDS ORDERED: MOMLX PO (10:59)
--- NOTE | 2017-01-18 11:11 | EMERGENCY ROOM VISIT NOTE ---
History Report prepared by Delmer: Hosea Parekh Under the Supervision of: Dr. Anne Dyson D.O. First contact with patient: 10:59 Chief Complaint: BILATERAL LEG WEAKNESS Stated Complaint: LEG WEAKNESS History of Present Illness The patient is an 89 year old female who presents to the Emergency Room from assisted living with complaints of worsening bilateral leg weakness that started yesterday morning. She says that she uses a wheelchair, and noticed that she needed to use her legs more to move the wheelchair yesterday, and thinks that that is why she has some discomfort in her legs. The patient states that a lot of her discomfort is in her thighs. She notes that she has been in a wheelchair for a while now, and has been doing therapy a couple times per week, and is supposed to do exercises everyday, which she says that she has been doing. She notes that some of her therapy includes getting herself to ambulate with a walker. The patient states that she is here because she was told that there is concern about infection or a blood clot. She notes that she has had lymphedema in her legs for 5 years now, and has not had any recent worsening redness or swelling in her legs recently. She denies any recent vomiting, cough , abdominal pain, cold symptoms, or diarrhea. She notes that she takes Lasix daily. Source of History: patient Onset: Yesterday morning Position: leg (bilateral) Quality: other (weakness) Timing: worsening Associated Symptoms: No cough, No vomiting, No abdominal pain, No diarrhea Note: Associated symptoms: Bilateral leg discomfort, especially in thighs. Denies recent cold symptoms, or worsening redness or swelling in her legs. Review of Systems See HPI for pertinent positives & negatives. A total of 10 systems reviewed and were otherwise negative. Past Medical & Surgical Medical Problems: (1) Aortic stenosis (2) CKD (chronic kidney disease), stage III (3) Dyslipidemia (4) HTN (hypertension) (5) Hypothyroidism (6) LVH (left ventricular hypertrophy) (7) Lymphedema (8) Obesity (9) Osteoarthritis Surgical Problems: (1) H/O eye surgery (2) History of dental surgery (3) S/P D&C (status post dilation and curettage) (4) S/P right knee surgery (5) S/P total hip arthroplasty (6) S/P total knee arthroplasty (7) Status post hip surgery Family History Patient reports no known family medical history. Social History Smoking Status: Never Smoker Marital Status: Housing Status: lives alone Occupation Status: retired Current/Historical Medications Scheduled Aspirin (Aspirin Ec), 325 MG PO QAM Atenolol (Tenormin), 12.5 MG PO DAILY Docusate Sodium (Docusate Sodium), 100 MG PO BID Furosemide (Lasix), 20 MG PO MWF Latanoprost (Xalatan 0.005% Oph Angelica), 1 DROP OPB DAILY Levothyroxine Sodium (Levothyroxine Sodium), 100 MCG PO DAILY Loperamide Hcl (Imodium), 4 MG PO UD Nystatin (Topical) (Nystop), 1 APPLN TOP TID [place]-3 Fatty Acids (Fish Oil), 1,000 MG PO BID Potassium Ext Rel (Klor-Con), 20 MEQ PO MWF Sennosides-Docusate Sodium (Sennalax-S), 1 TAB PO DAILY Scheduled PRN Acetaminophen Tab (Tylenol), 650 MG PO Q6 PRN for Pain Magnesium Hydroxide (Milk of Magnesia), 30 ML PO DAILY PRN for Constipation Menthol-Methyl Salicylate (Roopa (Thera-Gesic), 1 APPLN TOP BID PRN for MUSCLE PAIN Naproxen Sodium (Naproxen Sodium), 20 MG PO DAILY PRN for Pain Nystatin (Nystatin Cream), 0 TOP BID PRN for YEAST Polyethylene Glycol 3350 (Miralax), 17 GM PO DAILY PRN for Constipation Tramadol (Ultram), 50 MG PO Q6 PRN for Pain Allergies Coded Allergies: Mineral Oil (Unverified Allergy, Intermediate, UNKNOWN, 01/18/17) Petrolatum (Unverified Allergy, Intermediate, UNKNOWN, 01/18/17) Lorazepam (Unverified Adverse Reaction, Unknown, PLEASE SEE COMMENT, ) NOT ALLERGIC, BUT A NOTE ON THE TOP OF THE MAR STATE PER "FAMILY (BILL), PLEASE DO NOT GIVE ATIVAN" Physical Exam Vital Signs Date Time Temp Pulse Resp B/P (MAP) Pulse Ox O2 Delivery O2 Flow Rate FiO2 01/18/17 18:46 74 18 139/76 98 Room Air 01/18/17 15:18 70 18 130/95 93 Room Air 01/18/17 14:13 75 126/60 95 Room Air 01/18/17 13:06 70 15 127/78 96 Room Air 01/18/17 13:06 71 01/18/17 12:15 79 20 127/78 96 Room Air 01/18/17 10:04 75 01/18/17 10:00 37.1 82 18 107/62 94 Room Air Physical Exam GENERAL: alert, well appearing, well nourished, no distress, non-toxic EYE EXAM: normal conjunctiva, PERRL and EOM's grossly intact OROPHARYNX: no exudate, no erythema, lips, buccal mucosa, and tongue normal and mucous membranes are moist NECK: supple, no nuchal rigidity, no adenopathy, non-tender LUNGS: Diminished breath sounds, no wheezes rhonchi or rales. Normal chest wall mechanics HEART: Irregular heart rate, no murmurs, S1 normal and S2 normal ABDOMEN: abdomen soft, non-tender, normo-active bowel sounds, no masses, no rebound or guarding. BACK: Back is symmetrical on inspection and there is no deformity, no midline tenderness, no CVA tenderness. SKIN: no rashes and no bruising UPPER EXTREMITIES: upper extremities are grossly normal. LOWER EXTREMITIES: 1+ pitting edema bilaterally. Mild erythema bilaterally, no rashes or sores. Legs are nontender, no calf tenderness. Bilateral compression stockings. NEURO EXAM: Normal sensorium, cranial nerves II-XII grossly intact, normal speech, no gross weakness of arms, no gross weakness of legs. No drift. Finger to nose intact. Gross sensation intact. Medical Decision & Procedures ER Provider Diagnostic Interpretation: US:Per my review, radiologist interpretation. BILATERAL LOWER EXTREMITY VENOUS DOPPLER HISTORY: Acute lower extremity pain and edema bilaterally edema, pain COMPARISON STUDY: DVT study 05/14/2007. FINDINGS: There is normal compressibility, flow, and augmentation within the bilateral lower extremity deep venous systems. Nonspecific edema is noted within the lower extremities bilaterally. IMPRESSION: No sonographic evidence of deep venous thrombosis within the right or left lower extremity. Electronically signed by: Sumeet Hastings M.D. 01/18/2017 12:48 PM Dictated Date/Time: 01/18/2017 12:47 PM Laboratory Results 01/18/17 11:30 Red Blood Count 3.99, Mean Corpuscular Volume 86.0, Mean Corpuscular Hemoglobin 28.1, Mean Corpuscular Hemoglobin Concent 32.7, Mean Platelet Volume 11.1, Neutrophils (%) (Auto) 59.5, Lymphocytes (%) (Auto) 31.1, Monocytes (%) (Auto) 8.0, Eosinophils (%) (Auto) 1.0, Basophils (%) (Auto) 0.2, Neutrophils # (Auto) 2.44, Lymphocytes # (Auto) 1.28, Monocytes # (Auto) 0.33, Eosinophils # (Auto) 0.04, Basophils # (Auto) 0.01 01/18/17 11:30 Test 01/18/17 00:00 01/18/17 11:30 Urine Color YELLOW Urine Appearance CLEAR (CLEAR) Urine pH 5.0 (4.5-7.5) Urine Specific [place] 1.021 (1.000-1.030) Urine Protein TRACE (NEG) Urine Glucose (UA) NEG (NEG) Urine Ketones NEG (NEG) Urine Occult Blood NEG (NEG) Urine Nitrite NEG (NEG) Urine Bilirubin NEG (NEG) Urine Urobilinogen NEG (NEG) Urine Leukocyte Esterase NEG (NEG) Urine WBC (Auto) 0 /hpf (0-5) Urine RBC (Auto) 0-4 /hpf (0-4) Urine Hyaline Casts (Auto) 1-5 /lpf (0-5) Urine Epithelial Cells (Auto) 5-10 /lpf (0-5) Urine Bacteria (Auto) NEG (NEG) White Blood Count 4.11 K/uL (4.8-10.8) Red Blood Count 3.99 M/uL (4.2-5.4) Hemoglobin 11.2 g/dL (12.0-16.0) Hematocrit 34.3 % (37-47) Mean Corpuscular Volume 86.0 fL (80-100) Mean Corpuscular Hemoglobin 28.1 pg (25-34) Mean Corpuscular Hemoglobin Concent 32.7 g/dl (32-36) Platelet Count 152 K/uL (130-400) Mean Platelet Volume 11.1 fL (7.4-10.4) Neutrophils (%) (Auto) 59.5 % Lymphocytes (%) (Auto) 31.1 % Monocytes (%) (Auto) 8.0 % Eosinophils (%) (Auto) 1.0 % Basophils (%) (Auto) 0.2 % Neutrophils # (Auto) 2.44 K/uL (1.4-6.5) Lymphocytes # (Auto) 1.28 K/uL (1.2-3.4) Monocytes # (Auto) 0.33 K/uL (0.11-0.59) Eosinophils # (Auto) 0.04 K/uL (0-0.5) Basophils # (Auto) 0.01 K/uL (0-0.2) RDW Standard Deviation 56.1 fL (36.4-46.3) RDW Coefficient of Variation 17.6 % (11.5-14.5) Immature Granulocyte % (Auto) 0.2 % Immature Granulocyte # (Auto) 0.01 K/uL (0.00-0.02) Anion Gap 7.0 mmol/L (3-11) Est Creatinine Clear Calc Drug Dose 57.7 ml/min Estimated GFR () 70.4 Estimated GFR (Non- 60.7 BUN/Creatinine Ratio 26.7 (10-20) Calcium Level 9.0 mg/dl (8.5-10.1) Magnesium Level 2.1 mg/dl (1.8-2.4) Total Bilirubin 0.7 mg/dl (0.2-1) Aspartate Amino Transf (AST/SGOT) 76 U/L (15-37) Alanine Aminotransferase (ALT/SGPT) 79 U/L (12-78) Alkaline Phosphatase 107 U/L (45-117) Pro-B-Type Natriuretic Peptide 5341 pg/ml (0-1800) Total Protein 7.0 gm/dl (6.4-8.2) Albumin 3.2 gm/dl (3.4-5.0) Globulin 3.8 gm/dl (2.5-4.0) Albumin/Globulin Ratio 0.8 (0.9-2) Laboratory results per my review. Medications Administered Medications (Trade) Dose Ordered Sig/Ambar Route Start Time Stop Time Status Last Admin Dose Admin Naproxen (Naprosyn Tab) 250 mg NOW STAT PO 01/18/17 13:27 01/18/17 13:28 DC 01/18/17 14:13 250 MG ECG Indication: weakness Rate (beats per minute): 77 Rhythm: atrial fibrillation Findings: no acute ischemic change, other (normal axis, normal QRS and QTC) ED Course ED COURSE: The patients medical record was reviewed The above diagnostic studies were performed and reviewed. ED treatments and interventions as stated above. 1102: The patient was evaluated in room A3. A complete history and physical examination was performed. 1317: I reevaluated the patient and she is asleep, resting comfortably. 1320: I talked to 2 staff at the [facility], and they say that the patient typically can ambulate independently, but often chooses not to but she can. This morning, the patient said that she could not ambulate and was a full 2-person assist to do a transfer. 1327: Ordered Naprosyn Tab 250 mg PO. 1456: I reevaluated the patient and she was unable to ambulate. Case management will investigate options for placement. 1727: Upon reevaluation, the patient is resting comfortably. She failed her ambulatory trial, so [facility] will not take the patient back. I discussed my findings with the patient and she understands and agrees with the treatment plan. Based on the patients age, coexisting illnesses, exam and lab findings the decision to treat as an inpatient was made. The patient remained stable while under my care. The patient will be evaluated for further management. 1752: I discussed the patient with Maeve Vlaverde - she will evaluate the patient for further treatment. Medical Decision Differential Diagnosis includes but is not limited to dehydration, stroke, anemia, hypoglycemia, hyponatremia, hypernatremia, urinary tract infection, pneumonia, bronchitis, sepsis, gastroenteritis, additional abdominal pathology, metabolic abnormalities and infections. Patient reports no pain, however increasing lower extremity weakness to the point of worsening ambulatory dysfunction compared to baseline confirmed by staff at [facility] where she typically resides. Patient with a nonfocal neuro exam at bedside, doubt weakness related to CVA/TIA. Doubt related to acute vascular etiology. No evidence of bacteremia/sepsis. No evidence of DVT or acute infectious etiology. Patient with chronic erythema to bilateral extremities, doubt acute cellulitis. Patient with elevation of BNP, however has been elevated previously, more likely chronic given patient's age. Patient already taking Lasix daily. Patient well-appearing here, no other focal complaints. However due to change in ambulatory status, was unable to be return to [facility], and given lightness in the day unable be placed in [facility]. Patient will be admitted overnight on observation status for likely placement tomorrow morning into a higher level of care a rehabilitation facility. Patient and family made aware of all this at bedside were agreeable with plan. Medication Reconcilliation Current Medication List: was personally reviewed by me Blood Pressure Screening Patient's blood pressure: Normal blood pressure Consults Time Called: [phone] Consulting Physician: Maeve Valverde Returned Call: [phone] I discussed the patient with Maeve Valverde - she will evaluate the patient for further treatment. Impression Primary Impression: Lower extremity weakness Additional Impressions: Ambulatory dysfunction Obesity Scribe Attestation The scribe's documentation has been prepared under my direction and personally reviewed by me in its entirety. I confirm that the note above accurately reflects all work, treatment, procedures, and medical decision making performed by me. Departure Information Dispostion Being Evaluated By Hospitalist [facility] (PCP) Patient Instructions My [facility] Problem Qualifiers Primary Impression: Lower extremity weakness Laterality: bilateral Qualified Codes: R29.898 - Other symptoms and signs involving the musculoskeletal system Additional Impressions: Obesity Obesity type: unspecified obesity type Obesity classification: unspecified obesity classification Serious obesity comorbidity presence: unspecified whether serious comorbidity present Qualified Codes: E66.9 - Obesity, unspecified
[2017-01-18 11:56] LABS: BASO % 0.2 %; BASO ABS # 0.01 K/uL (0-0.2); COMPLETE YES; HEMATOCRIT 34.3 % (37-47); IG% 0.2 %; LYMPH % 31.1 %; LYMPH ABS # 1.28 K/uL (1.2-3.4); MEAN CORPUSCULAR HEMOGLOBIN 28.1 pg (25-34); MEAN CORPUSCULAR HGB CONC 32.7 g/dl (32-36); MEAN PLATELET VOLUME 11.1 fL (7.4-10.4); NEUT % 59.5 %; PLATELET COUNT 152 K/uL (130-400); RED BLOOD COUNT 3.99 M/uL (4.2-5.4); WHITE BLOOD COUNT 4.11 K/uL (4.8-10.8)
[2017-01-18 12:11] LABS: URINE APPEARANCE CLEAR (CLEAR); URINE BILIRUBIN NEG (NEG); URINE COLOR YELLOW; URINE NITRITE NEG (NEG); URINE SPECIFIC GRAVITY 1.021 (1.000-1.030); UROBILINOGEN NEG (NEG)
[2017-01-18 12:12] LABS: BUN/CREATININE RATIO 26.7 (10-20); CREATININE 0.85 mg/dl (0.60-1.20); MAGNESIUM 2.1 mg/dl (1.8-2.4); POTASSIUM 4.6 mmol/L (3.5-5.1)
[2017-01-18 12:15] LABS: MANUAL MICROSCOPIC REQUIRED? NO; REVIEW REQ? NO
[2017-01-18 12:17] LABS: ALB/GLOB RATIO 0.8 (0.9-2)
--- NOTE | 2017-01-18 12:50 | DIAGNOSTIC IMAGING REPORT ---
BILATERAL LOWER EXTREMITY VENOUS DOPPLER HISTORY: Acute lower extremity pain and edema bilaterally edema, pain COMPARISON STUDY: DVT study 05/14/2007. FINDINGS: There is normal compressibility, flow, and augmentation within the bilateral lower extremity deep venous systems. Nonspecific edema is noted within the lower extremities bilaterally. IMPRESSION: No sonographic evidence of deep venous thrombosis within the right or left lower extremity. Electronically signed by: Sumeet Hastings M.D. 01/18/2017 12:48 PM Dictated Date/Time: 01/18/2017 12:47 PM
[2017-01-18] MEDS ORDERED: NAPROXEN 250 MG TAB PO STA (13:27)
[2017-01-18] MEDS ORDERED: MAGNESIUM HYDROXIDE SUSP 30 ML UDC PO PRN ×2 (18:45)
[2017-01-18] MEDS ORDERED: NYSTATIN CR 15 GM TUBE EXT PRN (18:45)
[2017-01-18] MEDS ORDERED: HEPARIN SOD 5000 UNIT/0.5 ML CARP SQ SCH (18:45)
[2017-01-18] MEDS ORDERED: TRAMADOL HCL 50 MG TAB PO PRN (18:45)
[2017-01-18] MEDS ORDERED: ONDANSETRON INJ 2 MG/ML 2 ML VIAL IV PRN (18:45)
[2017-01-18] MEDS ORDERED: ACETAMINOPHEN 325 MG TAB PO PRN ×2 (18:45)
[2017-01-18] MEDS ORDERED: LOPERAMIDE HCL 2 MG CAP PO PRN (18:45)
[2017-01-18] MEDS ORDERED: ALUMINUM/MAGNESIUM/SIMETH (MAALOX MAX) 30 ML UDC PO PRN (18:45)
[2017-01-18] MEDS ORDERED: POLYETHYLENE (MIRALAX) 17 GM PACK PO PRN (18:45)
--- NOTE | 2017-01-18 19:06 | DIAGNOSTIC IMAGING REPORT ---
CHEST ONE VIEW PORTABLE CLINICAL HISTORY: INFILTRATE pneumonia COMPARISON STUDY: 04/24/2016. FINDINGS: mild cardiomegaly. Diaphragms are smooth. Lungs are clear. Mild fullness of the pulmonary vasculature considered chronic. IMPRESSION: Mild cardiomegaly. Otherwise negative study. The above report was generated using voice recognition software. It may contain grammatical, syntax or spelling errors. Electronically signed by: Ze Martinez M.D. 01/18/2017 7:05 PM Dictated Date/Time: 01/18/2017 7:03 PM
[2017-01-18] MEDS ORDERED: MENTHOL-ZINC OXIDE 360 APPLN/120 GM TUBE EXT PRN (19:30)
--- NOTE | 2017-01-18 20:48 | HISTORY & PHYSICAL EXAMINATION ---
DATE OF ADMISSION: 01/18/2017 CHIEF COMPLAINT: Lower extremity weakness. HISTORY OF PRESENT ILLNESS: This is an 89-year-old female with a past medical history significant for hypertension, chronic lower extremity lymphedema, aortic stenosis, arthritis and chronic anemia who currently lives at [facility], was brought in because of weakness in the lower extremity. The patient is mostly wheelchair bound since April of this year because of weakness in the legs. She can ambulate a few steps, but since yesterday she is having a difficult time ambulating to her wheelchair, so she was brought to the ER to rule out of any infection or DVT of lower extremities. The patient says there is no increase in swelling or erythematous changes in the lower extremity. She denies any fever or chills. No burning micturition or blood in the urine. Has normal bowel movements. No blood in the stools. She denies any chest pain or shortness of breath. No headaches, no blurred vision, no cough, no nausea, no vomiting and no abdominal pain. Appetite is okay. Currently, she is resting comfortable and hemodynamically stable. Denies any sore throat or difficulty swallowing. Denies any skin rash at this time. The plan was to send her to [facility], but because of no bed availability we were called for admission and observation. ALLERGIES: No known drug allergies. PAST MEDICAL HISTORY: As mentioned above. PAST SURGICAL HISTORY: Hip surgery, gynecological procedures, eye surgery, knee surgeries and cataract surgeries. FAMILY HISTORY: Significant for heart disease. SOCIAL HISTORY: Nonsmoker. No alcohol intake. Currently living at [facility]. MEDICATIONS: The patient is on MiraLax 17 grams p.o. daily p.r.n., Tylenol 650 mg p.o. q. 6 hours p.r.n., aspirin 325 mg p.o. a.m., atenolol 12.5 mg p.o. daily, Colace 100 mg p.o. b.i.d., Lasix 20 mg p.o. on Mondays, Wednesdays and Fridays, latanoprost 0.005% ophthalmic solution 1 drop daily, levothyroxine 100 mcg p.o. daily, Imodium 2.4 mg p.o. as needed, milk of magnesia 300 mg p.o. daily p.r.n., naproxen sodium 220 mg p.o. daily p.r.n., omega 3 fatty acids 1000 mg p.o. b.i.d., potassium supplement 20 mEq p.o. when taking Lasix and Tramadol 50 mg p.o. q. 6 hours p.r.n. REVIEW OF SYMPTOMS: As per HPI. PHYSICAL EXAMINATION: GENERAL: The patient is of moderate build, not in distress. VITAL SIGNS: Temperature 37.1, pulse 74, respiratory rate 18, blood pressure 139/76 and oxygen 98% on room air. HEENT: No pallor, no icterus. Pupils are equal, round, and reactive to light. NECK: No JVD, no neck masses, no carotid bruits. Supple. CARDIOVASCULAR: S1, S2 heard. Regular rate and rhythm. Ejection systolic murmur present. RESPIRATORY SYSTEM: Normal AP diameter. No accessory muscle use. No wheezing, no crackles. ABDOMEN: Soft, bowel sounds are present. Nontender. No distention. CENTRAL NERVOUS SYSTEM: Cranial nerves II-XII are grossly intact. Nonfocal. EXTREMITIES: Chronic lower extremity edema present. Mildly erythematous. No tenderness or warmth on palpation. LABORATORIES: WBC 4.1, hemoglobin 11.2, hematocrit 34.3 and platelets 152. Sodium 141, potassium 4.6, chloride 109, bicarbonate 25, BUN 23, creatinine 0.8, serum glucose 88, calcium 9, magnesium 2.1, total bilirubin 0.7, AST 76, ALT 79, alkaline phosphatase 107 and BNP 5341. Urinalysis is negative. Venous Doppler; no DVT. EKG; atrial fibrillation, rate of 77. No acute ST changes are seen. ASSESSMENT AND PLAN: This is an 89-year-old female, who presents with lower extremity weakness. 1. Lower extremity weakness and ambulatory dysfunction. The patient is mostly wheelchair-bound able to ambulate a few steps, but having difficulty ambulating lately. Questionable cellulitis in lower extremity, but patient says the erythema and swelling is same as before. The patient may need more physical therapy. We will consult physical therapy and occupational therapy. Plan for rehab placement. We will empirically start her on antibiotics, Rocephin and doxycycline for questionable cellulitis. 2. Atrial fibrillation, seems new onset. rates under control will follow echocardiogram and repeat ekg and consult cardiology in the a.m. for further recommendations about anticoagulation.Patient does not want iv heparin now. 3. Hypothyroidism, continue Synthroid. 4. Hypertension, continue atenolol. We will monitor blood pressure. 5. Anemia, hemoglobin at baseline. We will monitor her labs. 6. Deep venous thrombosis prophylaxis. Heparin subQ for now. 7. Disposition: Admit to the tele floor. Physical therapy and occupational therapy prior to discharge. Social Service to help with discharge planning. Level 1. Full code. MTDD
[2017-01-18 21:00] VITALS: BP 135/75; PULSE 64; TEMP 36.6; O2SAT 96
[2017-01-18] MEDS ORDERED: IV FLUIDS COMPLETED PRN (21:00)
[2017-01-18] MEDS: CEFTRIAXONE SOD INJ 1 GM in DEXTROSE 5% ADD-VANTAGE 50ML 50 ML IV SCH (21:12)
[2017-01-18] MEDS: DOXYCYCLINE HYCLATE 100 MG CAP PO SCH (21:12)
[2017-01-18] MEDS: NYSTATIN POWDER 15GM BTL EXT SCH (21:12)
[2017-01-18] MEDS: DOCUSATE SODIUM 100 MG CAP PO SCH (21:12)
[2017-01-18] MEDS: OMEGA-3 (PURIFIED FISH OIL) 1 GM CAP PO SCH (21:12)
[2017-01-18] MEDS: HEPARIN SOD 5000 UNIT/0.5 ML CARP SQ SCH (21:18)
[2017-01-18 21:21] VITALS: BP 135/75; PULSE 64; TEMP 36.6; Ht 165.1 cm; Wt 94.2 kg
[2017-01-18 23:23] VITALS: BP 121/68; PULSE 80; TEMP 36.4; O2SAT 95
[2017-01-19] VITALS (9 sets, daily range): BP systolic 115–132; BP diastolic 75–86; PULSE 65–81; TEMP 36.3–36.6; O2SAT 94–97
[2017-01-19] MEDS ORDERED: MICONAZOLE NITRATE POWDER 43 GM EXT PRN (05:00)
[2017-01-19] MEDS: LEVOTHYROXINE 100 MCG TAB PO SCH (05:38)
[2017-01-19] MEDS ORDERED: PERFLUTREN LIPID MICROSPHERE (DEFINITY) IV ONE (07:20)
[2017-01-19] MEDS ORDERED: INFLUENZA VACCINE HIGH DOSE 65+ 0.5 ML SYR IM. ONE (08:00)
[2017-01-19] MEDS ORDERED: PNEUMOCOCCAL POLYSACCHARIDES 25 MCG/0.5 ML VIAL/SYR IM. ONE (08:00)
[2017-01-19] MEDS ORDERED: INFLUENZA ADMINISTRATION CHARGE ONE (08:00)
[2017-01-19] MEDS ORDERED: PNEUMOCOCCAL ADMINISTRATION CHARGE ONE (08:00)
[2017-01-19 08:54] LABS: BASO % 0.2 %; BASO ABS # 0.01 K/uL (0-0.2); COMPLETE YES; EOS % 2.7 %; HEMATOCRIT 36.3 % (37-47); LYMPH % 30.1 %; LYMPH ABS # 1.34 K/uL (1.2-3.4); MEAN CORPUSCULAR HEMOGLOBIN 28.2 pg (25-34); MEAN CORPUSCULAR HGB CONC 32.8 g/dl (32-36); MEAN PLATELET VOLUME 10.8 fL (7.4-10.4); MONO % 6.7 %; NEUT % 60.3 %; PLATELET COUNT 156 K/uL (130-400); RED BLOOD COUNT 4.22 M/uL (4.2-5.4); WHITE BLOOD COUNT 4.45 K/uL (4.8-10.8)
[2017-01-19] MEDS: NYSTATIN POWDER 15GM BTL EXT SCH ×3 (08:56→20:52)
[2017-01-19] MEDS: DOCUSATE SODIUM 100 MG CAP PO SCH ×2 (08:57→20:53)
[2017-01-19] MEDS: ASPIRIN 325 MG ECTAB PO SCH (08:57)
[2017-01-19] MEDS: LATANOPROST 0.005% OP SOLN 2.5 ML BTL OPB SCH (08:57)
[2017-01-19] MEDS: POTASSIUM CHLORIDE 20 MEQ TABCR PO SCH (08:58)
[2017-01-19] MEDS: OMEGA-3 (PURIFIED FISH OIL) 1 GM CAP PO SCH ×2 (08:58→20:53)
[2017-01-19] MEDS: DOCUSATE SODIUM/SENNA 50/8.6MG TAB PO SCH (08:58)
[2017-01-19] MEDS: DOXYCYCLINE HYCLATE 100 MG CAP PO SCH ×2 (08:59→20:54)
[2017-01-19] MEDS ORDERED: FUROSEMIDE 20 MG TAB PO SCH (09:00)
[2017-01-19] MEDS: HEPARIN SOD 5000 UNIT/0.5 ML CARP SQ SCH ×3 (09:07→20:56)
[2017-01-19 09:21] LABS: BLOOD UREA NITROGEN 23 mg/dl (7-18); BUN/CREATININE RATIO 27.6 (10-20); CALCIUM 8.5 mg/dl (8.5-10.1); CARBON DIOXIDE 26 mmol/L (21-32); CHLORIDE 108 mmol/L (98-107); CREATININE 0.83 mg/dl (0.60-1.20); GLUCOSE 130 mg/dl (70-99); SODIUM 141 mmol/L (136-145)
--- NOTE | 2017-01-19 09:22 | ECHOCARDIOGRAM REPORT ---
*NOTICE TO RECEIVING REPUBLICAN AGENCY This information is strictly Confidential and protected under [place] law. [place] law prohibits you from making any further disclosure of this information unless further disclosure is expressly permitted by the written consent of the person to whom it pertains or is authorized by law. A general authorization for the release of medical or other information is not sufficient for this purpose. Hospital accepts no responsibility if the information is made available to any other person, INCLUDING THE PATIENT. Interpretation Summary * Name: VONNIE SANCHES Study Date: 01/19/2017 06:28 AM * Patient Location: C.[id number]\W255\S\2 * : 1925 (M/d/yyyy) Gender: Female Height: 65 in * Age: 89 yrs Ethnicity: [place] Weight: 260 lb * Ordering Physician: Chandrakant Ford * Referring Physician: Self, Referred * Performed By: Nay Patel RDCS * * Reason For Study: Atrial fibrillation * BSA: 2.2 m2 * The study was technically adequate. * Compared to prior study, changes are noted. * -- Conclusions -- * The aortic valve is severely calcified. * Severe valvular aortic stenosis. * Ejection Fraction = 65-70%. * There is moderate concentric left ventricular hypertrophy. * The left atrium is severely dilated. * Calcified mitral apparatus. * There is mild mitral regurgitation. * There is mild tricuspid regurgitation. * The estimated systolic PAP IS 48mmHg. * Dilated inferior vena cava with reduced collapsability with sniff indicates an elevated right atrial pressure of 15 mmHg * Trivial right lateral pericardial effusion. * There are no echocardiographic indications of cardiac tamponade. Procedure Details * A complete two-dimensional transthoracic echocardiogram was performed (2D, M-mode, Doppler and color flow Doppler). * A contrast injection of Definity was performed to improve assessment of LV function. * Contrast was injected into an intravenous site in the right arm. * One vial of Definity ultrasound contrast was diluted in normal saline to a total volume of 10 ml. A total of '3' ml of solution was administered during imaging. * Lot # [id number] of Definity utilized for procedure. * Expiration date FEB 07. * The attending nurse who injected the contrast agent was Rand Phillips RN. Left Ventricle * The left ventricle is normal in size. * The rhythm is atrial fibrillation. * There is moderate concentric left ventricular hypertrophy. * Ejection Fraction = 65-70%. * Left ventricular systolic function is normal. * The left ventricular wall motion is normal. Right Ventricle * The right ventricle is normal size. * The right ventricular systolic function is normal as assessed by tricuspid annular plane systolic excursion (TAPSE) (normal >1.5 cm). Atria * The left atrium is severely dilated. * The right atrium is moderately dilated. * There is no evidence of atrial septal defect, but resolution does not allow assessment for a patent foramen ovale. Mitral Valve * There is moderate mitral annular calcification. * The mitral valve leaflets appear thickened, but open well. * The posterior leaflet is moderately calcified. * Calcified mitral apparatus. * There is no mitral valve stenosis. * There is mild mitral regurgitation. Tricuspid Valve * The tricuspid valve is normal. * There is no tricuspid stenosis. * There is mild tricuspid regurgitation. * The estimated systolic PAP IS 48mmHg. Aortic Valve * The aortic valve is not well visualized. * The aortic valve is severely calcified. * Severe valvular aortic stenosis. * There is no significant aortic regurgitation. Pulmonic Valve * The pulmonary valve is not well seen, but the Doppler examination is normal without significant regurgitation or stenosis. Great Vessels * The aortic root and proximal ascending aorta are normal sized. Pericardium/Pleural * Trivial right lateral pericardial effusion. * There are no echocardiographic indications of cardiac tamponade. Great Vessels * Dilated inferior vena cava with reduced collapsability with sniff indicates an elevated right atrial pressure of 15 mmHg Left Ventricular Diastolic Function * Pulse wave TDI of the anterior and posterior mitral annulas demonstrates abnormal LV relaxation MMode 2D Measurements and Calculations IVSd 1.3 cm LVIDd 3.3 cm LVIDs 1.9 cm LVPWd 1.4 cm IVS/LVPW 0.91 FS 42.3 % EDV(Teich) 44.6 ml ESV(Teich) 11.4 ml EF(Teich) 74.5 % EDV(cubed) 36.5 ml ESV(cubed) 7.0 ml EF(cubed) 80.7 % LV mass(C)d 152.5 grams LV mass(C)dI 68.9 grams/m\S\2 CO(Teich) 2.9 l/min CI(Teich) 1.3 l/min/m\S\2 SV(Teich) 33.3 ml SI(Teich) 15.0 ml/m\S\2 CO(cubed) 2.6 l/min CI(cubed) 1.2 l/min/m\S\2 SV(cubed) 29.4 ml SI(cubed) 13.3 ml/m\S\2 LA dimension 3.5 cm asc Aorta Diam 3.3 cm LVAd ap4 28.6 cm\S\2 LVLd ap4 7.6 cm EDV(MOD-sp4) 87.0 ml LVAs ap4 13.2 cm\S\2 LVLs ap4 6.1 cm ESV(MOD-sp4) 25.5 ml EF(MOD-sp4) 70.7 % LVAd ap2 30.5 cm\S\2 LVLd ap2 8.0 cm EDV(MOD-sp2) 97.2 ml LVAs ap2 13.6 cm\S\2 LVLs ap2 6.4 cm ESV(MOD-sp2) 25.3 ml EF(MOD-sp2) 74.0 % CO(MOD-sp4) 5.4 l/min CI(MOD-sp4) 2.4 l/min/m\S\2 SV(MOD-sp4) 61.5 ml SI(MOD-sp4) 27.8 ml/m\S\2 CO(MOD-sp2) 6.3 l/min CI(MOD-sp2) 2.8 l/min/m\S\2 SV(MOD-sp2) 71.9 ml SI(MOD-sp2) 32.5 ml/m\S\2 Doppler Measurements and Calculations MV E max or[place] 122.7 cm/sec MV dec time 0.21 sec Ao V2 max 508.5 cm/sec Ao max PG 103.9 mmHg Ao max PG (full) 102.2 mmHg Ao V2 mean 362.5 cm/sec Ao mean PG 62.3 mmHg Ao V2 VTI 135.7 cm LV V1 max PG 1.7 mmHg LV V1 max 66.0 cm/sec MR max orlando 582.0 cm/sec MR max PG 135.5 mmHg MR mean [place] 451.0 cm/sec MR mean PG 90.9 mmHg MR VTI 206.4 cm PA V2 max 135.3 cm/sec PA max PG 7.3 mmHg PA acc slope 404.1 cm/sec\S\2 PA acc time 0.11 sec TR max [place] 237.0 cm/sec PA pr(Accel) 31.5 mmHg
--- NOTE | 2017-01-19 11:51 | CARDIOLOGY CONSULTATION ---
DATE OF CONSULTATION: 01/19/2017 REASON FOR CONSULTATION: Atrial fibrillation. REFERRING PHYSICIAN: Dr. Chandrakant Ford. HISTORY OF PRESENT ILLNESS: This is an 89-year-old female who presented to the Emergency Department from assisted living with lower extremity weakness, lymphedema, and fatigue. She lives at [facility] according to records. She is mostly wheelchair bound at this point since April of this year due to lower extremity weakness. Apparently, she was to be admitted to [facility]; however, due to lack of bed availability, she was brought to the ER to rule out any other secondary causes of her weakness. The patient reports her lower extremity edema is unchanged. Denies chest pain or unusual shortness of breath. Denies any falls or injuries. No history of peptic ulcer disease, hematochezia, melena, or hematuria. She does not recall receiving a blood transfusion. ECG on admission demonstrates atrial fibrillation. The patient is unaware of her heart rate. Denies palpitations, lightheadedness, dizziness, syncope or near syncope. She has poor insight into her medical conditions. Offers no other complaints at this time. PAST MEDICAL HISTORY: 1. Severe aortic stenosis. 2. Chronic lymphedema. 3. Chronic kidney disease. 4. Chronic anemia. 5. Dyslipidemia. 6. Hypertension. 7. Hypothyroidism. 8. Obesity. 9. Osteoarthritis. PAST SURGICAL HISTORY: 1. Eye surgery. 2. Dental surgery. 3. Dilatation and curretage. 4. Knee surgery. 5. Hip arthroplasty. 6. Knee arthroplasty. FAMILY HISTORY: Negative for premature CAD or sudden cardiac ; however, noncontributory given the patient's age. SOCIAL HISTORY: Lifelong nonsmoker. She is . Resides in [facility]. OUTPATIENT MEDICATIONS: 1. Aspirin 325 daily. 2. Atenolol 12.5 mg daily. 3. Colace 100 mg twice daily. 4. Lasix 20 mg on Sunday, Sunday, and Sunday. 5. Xalatan eyedrops daily. 6. Synthroid 100 mcg daily. 7. Loperamide 4 mg daily. 8. Nystatin topically daily. 9. Fish oil 1000 mg twice daily. 10. Potassium chloride 20 mEq 3 days per week. 11. Senna-Lax daily. 12. Tylenol as needed. 13. Magnesium hydroxide as needed. 14. Naproxen as needed. 15. Tramadol as needed. ALLERGIES: 1. MINERAL OIL. 2. PETROLATUM. 3. LORAZEPAM. ECG on admission demonstrates atrial fibrillation, left ventricular hypertrophy, And nonspecific T-wave abnormality. LABORATORY DATA: Troponins are negative x2 sets. Sodium 141, potassium 4.0, chloride is 108, CO2 is 26, BUN is 23, and creatinine 0.83. White blood cell count is 4.45, hemoglobin is 11.9, and platelet count is 156. ProBNP 5341. The resting 2D transthoracic echo demonstrates moderate concentric LVH, normal LV systolic function, and severe aortic stenosis. Lower extremity venous duplex: No evidence of deep venous thrombosis. Chest X-ray: Mild cardiomegaly. Otherwise negative study. PHYSICAL EXAMINATION: VITAL SIGNS: Temperature is 36.6 degrees centigrade, pulse 73 beats per minute and regular, respiratory rate is 20 breaths per minute, blood pressure 128/86 and SaO2 is 94% on room air. GENERAL: NAD, poor historian, awake and alert. HEENT: Mucous membranes are moist. No scleral icterus. Conjunctivae pink. NECK: Supple without JVD in the upright position. HEART: Regular with a normal S1 and diminished S2. There is a 3/6 systolic ejection murmur heard best at the cardiac base; however, audible throughout precordium. PULMONARY: Crackles at the bases bilaterally. No rales or rhonchi. ABDOMEN: Soft and nontender. No rebound or guarding. EXTREMITIES: Demonstrate 2+ edema bilaterally with stasis changes. NEUROLOGIC: Demonstrates no focal motor deficit. FINAL IMPRESSION: 1. Paroxysmal atrial fibrillation with controlled ventricular response. Duration of atrial fibrillation is unknown as the patient is asymptomatic. She has a significant stroke risk related to her age and underlying valvular disease. 2. Severe aortic stenosis - the patient had previously declined invasive treatment in the past. 3. Chronic lower extremity edema, on chronic diuretic therapy. 4. Chronic anemia. 5. Lower extremity weakness and ambulatory dysfunction. Mostly wheelchair bound at this time. 6. Possible lower extremity cellulitis. PLAN AND RECOMMENDATIONS: I had a long discussion with the patient regarding new diagnosis of atrial fibrillation and associated stroke risk. She has poor insight into her medical conditions as well as difficulty understanding indications for anticoagulation. She currently declines warfarin and IV heparin. patient would like to discuss further with her daughter, who is going to come to visit her today. In regard to her aortic stenosis, she continues to decline any possibility of invasive therapies in the future, which I am not in disagreement with at this time. Agree with empiric antibiotics for possible cellulitis. I will increase her diuretics cautiously to daily dosing. In the past, there was noted episode of syncope associated with intravenous diuretic therapy. We will monitor heart rate and blood pressure closely. Thank you for allowing me to take part in the care of your patient. SARAH BETH
--- NOTE | 2017-01-19 15:00 | Progress Note ---
Internal Med Progress Note Date of Service: Jan 19, 2017. Provider Documentation: SUBJECTIVE: sitting on the chair comfortably able to walk few steps to chair today afebrile eating ok daughter in law in room no sob awaiting placement OBJECTIVE: Vital Signs-as noted below Exam: General-alert and awake. not in distress ENT-normal hearing Neck-no neck masses supple Lungs-cta b/l no wheezing or crackles Heart-s1 and s2 heard irregular no murmurs Abdomen-soft bowel sounds present non tender no distension Extremities-no erythema b/l lower extremity edema present-erythema improving Neuro-alert and awake moves extremities Lab data as noted below. ASSESSMENT & PLAN: This is an 89-year-old female, who presents with lower extremity weakness. 1. Lower extremity weakness and ambulatory dysfunction. The patient is mostly wheelchair-bound able to ambulate a few steps, but having difficulty ambulating lately. pt/ot and plan for placement to rehab. 2.Lower extremity cellulitis erythema improved on abx. possible cause for above.to continue current abx. 3. Atrial fibrillation, seems new onset. rates under control on atenolol. echo: The aortic valve is severely calcified. * Severe valvular aortic stenosis. * Ejection Fraction = 65-70%. * There is moderate concentric left ventricular hypertrophy. * The left atrium is severely dilated. * Calcified mitral apparatus. * There is mild mitral regurgitation. * There is mild tricuspid regurgitation. * The estimated systolic PAP IS 48mmHg. * Dilated inferior vena cava with reduced collapsability with sniff indicates an elevated right atrial pressure of 15 mmHg * Trivial right lateral pericardial effusion. * There are no echocardiographic indications of cardiac tamponade. Appreciate cardiology inputs Patient want to discuss about Coumadin with her family before deciding. 4. Chronic lower extremity edema acute on chronic diastolic chf? with preserved ef from valvular heart disease lasix 20mg changed to daily dose by cardiology will monitor 5. Hypothyroidism, continue Synthroid. 4. Hypertension, continue atenolol. We will monitor blood pressure. 5. Anemia, hemoglobin at baseline. We will monitor her labs. 6. Deep venous thrombosis prophylaxis. Heparin subQ for now. 7. Disposition: Monitor in the tele floor. Physical therapy and occupational therapy prior to discharge. Social Service to help with discharge planning. Level 1. Full code. Vital Signs: Date Time Temp Pulse Resp B/P (MAP) Pulse Ox O2 Delivery O2 Flow Rate FiO2 01/19/17 12:01 97 Room Air 01/19/17 11:18 36.6 68 20 124/82 (96) 97 Room Air 01/19/17 10:00 97 Room Air 01/19/17 09:10 94 Room Air 01/19/17 07:55 36.6 73 20 128/86 (100) 94 Room Air 01/19/17 00:00 Room Air 01/18/17 23:23 36.4 80 20 121/68 (85) 95 Room Air 01/18/17 21:21 36.6 64 18 135/75 Room Air 01/18/17 21:00 36.6 64 18 135/75 (95) 96 Room Air 01/18/17 20:00 72 25 116/71 01/18/17 19:00 67 01/18/17 18:46 74 18 139/76 98 Room Air 01/18/17 15:18 70 18 130/95 93 Room Air Lab Results: Results Past 24 Hours Test 01/19/17 08:37 Range/Units White Blood Count 4.45 4.8-10.8 K/uL Red Blood Count 4.22 4.2-5.4 M/uL Hemoglobin 11.9 12.0-16.0 g/dL Hematocrit 36.3 37-47 % Mean Corpuscular Volume 86.0 80-100 fL Mean Corpuscular Hemoglobin 28.2 25-34 pg Mean Corpuscular Hemoglobin Concent 32.8 32-36 g/dl Platelet Count 156 130-400 K/uL Mean Platelet Volume 10.8 7.4-10.4 fL Neutrophils (%) (Auto) 60.3 % Lymphocytes (%) (Auto) 30.1 % Monocytes (%) (Auto) 6.7 % Eosinophils (%) (Auto) 2.7 % Basophils (%) (Auto) 0.2 % Neutrophils # (Auto) 2.68 1.4-6.5 K/uL Lymphocytes # (Auto) 1.34 1.2-3.4 K/uL Monocytes # (Auto) 0.30 0.11-0.59 K/uL Eosinophils # (Auto) 0.12 0-0.5 K/uL Basophils # (Auto) 0.01 0-0.2 K/uL RDW Standard Deviation 57.1 36.4-46.3 fL RDW Coefficient of Variation 18.0 11.5-14.5 % Immature Granulocyte % (Auto) 0.0 % Immature Granulocyte # (Auto) 0.00 0.00-0.02 K/uL Sodium Level 141 136-145 mmol/L Potassium Level 4.0 3.5-5.1 mmol/L Chloride Level 108 98-107 mmol/L Carbon Dioxide Level 26 21-32 mmol/L Anion Gap 7.0 3-11 mmol/L Blood Urea Nitrogen 23 7-18 mg/dl Creatinine 0.83 0.60-1.20 mg/dl Est Creatinine Clear Calc Drug Dose 59.0 ml/min Estimated GFR () 72.5 Estimated GFR (Non- 62.5 BUN/Creatinine Ratio 27.6 10-20 Random Glucose 130 70-99 mg/dl Calcium Level 8.5 8.5-10.1 mg/dl Magnesium Level 2.0 1.8-2.4 mg/dl Troponin I < 0.015 0-0.045 ng/ml Thyroid Stimulating Hormone (TSH) 1.660 0.300-4.500 uIu/ml
[2017-01-19] MEDS: CEFTRIAXONE SOD INJ 1 GM in DEXTROSE 5% ADD-VANTAGE 50ML 50 ML IV SCH (20:52)
[2017-01-19] MEDS: NAPROXEN 250 MG TAB PO PRN (20:58)
[2017-01-20 04:22] VITALS: BP 140/87; PULSE 89; TEMP 36.6; O2SAT 94
[2017-01-20] MEDS: LEVOTHYROXINE 100 MCG TAB PO SCH (05:29)
[2017-01-20 06:30] LABS: BASO % 0.2 %; BASO ABS # 0.01 K/uL (0-0.2); COMPLETE YES; HEMATOCRIT 36.6 % (37-47); IG% 0.2 %; LYMPH % 42.6 %; LYMPH ABS # 1.82 K/uL (1.2-3.4); MEAN CELL VOLUME 86.1 fL (80-100); MEAN CORPUSCULAR HEMOGLOBIN 27.8 pg (25-34); MEAN CORPUSCULAR HGB CONC 32.2 g/dl (32-36); MEAN PLATELET VOLUME 10.6 fL (7.4-10.4); MONO % 8.7 %; NEUT % 45.3 %; PLATELET COUNT 173 K/uL (130-400); RED BLOOD COUNT 4.25 M/uL (4.2-5.4); WHITE BLOOD COUNT 4.27 K/uL (4.8-10.8)
[2017-01-20 06:58] LABS: BUN/CREATININE RATIO 34.2 (10-20); CALCIUM 8.4 mg/dl (8.5-10.1); CREATININE 0.8 mg/dl (0.60-1.20); MAGNESIUM 2.1 mg/dl (1.8-2.4); POTASSIUM 3.9 mmol/L (3.5-5.1)
[2017-01-20] MEDS: DOCUSATE SODIUM 100 MG CAP PO SCH ×2 (07:36→21:19)
[2017-01-20] MEDS: DOXYCYCLINE HYCLATE 100 MG CAP PO SCH ×2 (07:36→21:19)
[2017-01-20] MEDS: OMEGA-3 (PURIFIED FISH OIL) 1 GM CAP PO SCH ×2 (07:36→21:19)
[2017-01-20] MEDS: ASPIRIN 325 MG ECTAB PO SCH (07:36)
[2017-01-20] MEDS: NAPROXEN 250 MG TAB PO PRN (07:37)
[2017-01-20] MEDS: FUROSEMIDE 20 MG TAB PO SCH (07:37)
[2017-01-20] MEDS: DOCUSATE SODIUM/SENNA 50/8.6MG TAB PO SCH (07:38)
[2017-01-20] MEDS: LATANOPROST 0.005% OP SOLN 2.5 ML BTL OPB SCH (07:39)
[2017-01-20] MEDS: NYSTATIN POWDER 15GM BTL EXT SCH ×3 (07:39→21:14)
[2017-01-20] MEDS: HEPARIN SOD 5000 UNIT/0.5 ML CARP SQ SCH ×3 (07:40→21:20)
--- NOTE | 2017-01-20 11:51 | CARDIOLOGY PROGRESS NOTE ---
DATE: 01/20/2017 DATE: 01/20/2017 The patient seen and examined. Chart, medications, telemetry reviewed. SUBJECTIVE: The patient notes no complaints, overall feels slightly stronger this morning. Notes no chest pains, dizziness, lightheadedness, syncope or near syncope. Has been ambulatory in the room with walker. Notes no dizziness or lightheadedness. Notes no sense of tachypalpitations. OBJECTIVE: VITAL SIGNS: Heart rate is 89, blood pressure is 140/87. NECK: Without jugular venous distention. LUNGS: Reveal generally clear air myles. CARDIOVASCULAR: Irregularly irregular. Grade 3/6 systolic ejection murmur. There is no diastolic murmur. ABDOMEN: Soft. EXTREMITIES: Reveal 1-2+ pedal edema with chronic stasis changes. LABORATORY DATA: White cell count is 4.2, hemoglobin 11.8, sodium is 143, potassium is 3.9, chloride is 110, bicarb 25, BUN is 27, and creatinine 0.8. IMPRESSION: An 89-year-old female with newly observed atrial fibrillation, now with evidence of good rate control. No signs or symptoms of acute volume overload. Underlying medical issues include severe aortic valve disease calcific. RECOMMENDATIONS: The patient is agreeable to anticoagulation, would initiate. This may be done as an outpatient without bridge. Continue other medications for management of edema and hypertension. Follow up with cardiology 1 month's time.
[2017-01-20 16:01] VITALS: BP 115/67; PULSE 76; TEMP 36.6; O2SAT 96
--- NOTE | 2017-01-20 18:08 | Progress Note ---
Internal Med Progress Note Date of Service: Jan 20, 2017. Provider Documentation: SUBJECTIVE: sitting on the chair comfortably able to walk few steps in room afebrile eating good no cough await placement OBJECTIVE: Vital Signs-as noted below Exam: General-alert and awake. not in distress ENT-normal hearing Neck-no neck masses supple Lungs-cta b/l no wheezing or crackles Heart-s1 and s2 heard irregular no murmurs Abdomen-soft bowel sounds present non tender no distension Extremities- b/l lower extremity edema and erythema present-erythema improving Neuro-alert and awake moves extremities Lab data as noted below. ASSESSMENT & PLAN: This is an 89-year-old female, who presents with lower extremity weakness. 1. Lower extremity weakness and ambulatory dysfunction. The patient is mostly wheelchair-bound able to ambulate a few steps, but having difficulty ambulating lately. pt/ot and plan for placement to rehab. Doing better . Await placement 2.Lower extremity cellulitis erythema improved on abx. possible cause for above.to continue current abx. 3. Atrial fibrillation, seems new onset. rates under control on atenolol. echo: The aortic valve is severely calcified. * Severe valvular aortic stenosis. * Ejection Fraction = 65-70%. * There is moderate concentric left ventricular hypertrophy. * The left atrium is severely dilated. * Calcified mitral apparatus. * There is mild mitral regurgitation. * There is mild tricuspid regurgitation. * The estimated systolic PAP IS 48mmHg. * Dilated inferior vena cava with reduced collapsability with sniff indicates an elevated right atrial pressure of 15 mmHg * Trivial right lateral pericardial effusion. * There are no echocardiographic indications of cardiac tamponade. Appreciate cardiology inputs Patient want to discuss about Coumadin with her family before deciding. starting on coumadin 4. Chronic lower extremity edema acute on chronic diastolic chf? with preserved ef from valvular heart disease lasix 20mg changed to daily dose by cardiology will monitor 5. Hypothyroidism, continue Synthroid. 4. Hypertension, continue atenolol. We will monitor blood pressure. 5. Anemia, hemoglobin at baseline. We will monitor her labs. 6. Deep venous thrombosis prophylaxis. Heparin subQ for now. 7. Disposition: Monitor in the tele floor. Physical therapy and occupational therapy prior to discharge. Social Service to help with discharge planning. Level 1. Full code.Await rehab placement Vital Signs: Date Time Temp Pulse Resp B/P (MAP) Pulse Ox O2 Delivery O2 Flow Rate FiO2 01/20/17 16:05 Room Air 01/20/17 16:01 36.6 76 18 115/67 (83) 96 Room Air 01/20/17 12:10 Room Air 01/20/17 08:00 Room Air 01/20/17 04:22 Room Air 01/20/17 04:22 36.6 89 16 140/87 (104) 94 Room Air 01/20/17 00:00 Room Air 01/19/17 23:47 36.3 74 18 120/75 (90) 97 Room Air 01/19/17 20:16 36.4 65 18 132/75 (94) 95 Room Air Lab Results: Results Past 24 Hours Test 01/20/17 05:58 Range/Units White Blood Count 4.27 4.8-10.8 K/uL Red Blood Count 4.25 4.2-5.4 M/uL Hemoglobin 11.8 12.0-16.0 g/dL Hematocrit 36.6 37-47 % Mean Corpuscular Volume 86.1 80-100 fL Mean Corpuscular Hemoglobin 27.8 25-34 pg Mean Corpuscular Hemoglobin Concent 32.2 32-36 g/dl Platelet Count 173 130-400 K/uL Mean Platelet Volume 10.6 7.4-10.4 fL Neutrophils (%) (Auto) 45.3 % Lymphocytes (%) (Auto) 42.6 % Monocytes (%) (Auto) 8.7 % Eosinophils (%) (Auto) 3.0 % Basophils (%) (Auto) 0.2 % Neutrophils # (Auto) 1.93 1.4-6.5 K/uL Lymphocytes # (Auto) 1.82 1.2-3.4 K/uL Monocytes # (Auto) 0.37 0.11-0.59 K/uL Eosinophils # (Auto) 0.13 0-0.5 K/uL Basophils # (Auto) 0.01 0-0.2 K/uL RDW Standard Deviation 56.0 36.4-46.3 fL RDW Coefficient of Variation 17.9 11.5-14.5 % Immature Granulocyte % (Auto) 0.2 % Immature Granulocyte # (Auto) 0.01 0.00-0.02 K/uL Sodium Level 143 136-145 mmol/L Potassium Level 3.9 3.5-5.1 mmol/L Chloride Level 110 98-107 mmol/L Carbon Dioxide Level 25 21-32 mmol/L Anion Gap 8.0 3-11 mmol/L Blood Urea Nitrogen 27 7-18 mg/dl Creatinine 0.80 0.60-1.20 mg/dl Est Creatinine Clear Calc Drug Dose 61.3 ml/min Estimated GFR () 75.8 Estimated GFR (Non- 65.4 BUN/Creatinine Ratio 34.2 10-20 Random Glucose 86 70-99 mg/dl Calcium Level 8.4 8.5-10.1 mg/dl Magnesium Level 2.1 1.8-2.4 mg/dl
[2017-01-20] MEDS ORDERED: WARFARIN SOD 5 MG TAB PO ONE (18:15)
[2017-01-20] MEDS: CEFTRIAXONE SOD INJ 1 GM in DEXTROSE 5% ADD-VANTAGE 50ML 50 ML IV SCH (21:18)
[2017-01-20 22:17] VITALS: BP 130/83; PULSE 70; TEMP 36.5; O2SAT 96
[2017-01-21 06:21] LABS: BASO % 0.3 %; BASO ABS # 0.01 K/uL (0-0.2); COMPLETE YES; EOS % 3.5 %; HEMATOCRIT 33.8 % (37-47); IG% 0.3 %; LYMPH % 39.1 %; LYMPH ABS # 1.56 K/uL (1.2-3.4); MEAN CELL VOLUME 85.8 fL (80-100); MEAN CORPUSCULAR HEMOGLOBIN 28.2 pg (25-34); MEAN CORPUSCULAR HGB CONC 32.8 g/dl (32-36); MEAN PLATELET VOLUME 10.9 fL (7.4-10.4); MONO % 9.8 %; PLATELET COUNT 156 K/uL (130-400); RED BLOOD COUNT 3.94 M/uL (4.2-5.4); WHITE BLOOD COUNT 3.99 K/uL (4.8-10.8)
[2017-01-21] MEDS: LEVOTHYROXINE 100 MCG TAB PO SCH (06:24)
[2017-01-21 06:31] LABS: INR 1.1 (0.9-1.1); PROTHROMBIN TIME (PATIENT) 12.2 SECONDS (9.0-12.0)
[2017-01-21 06:51] LABS: BUN/CREATININE RATIO 36.6 (10-20); CALCIUM 8.1 mg/dl (8.5-10.1); CREATININE 0.72 mg/dl (0.60-1.20); POTASSIUM 4.1 mmol/L (3.5-5.1)
[2017-01-21 07:33] VITALS: BP 124/69; PULSE 67; TEMP 36.6; O2SAT 97
[2017-01-21] MEDS: NYSTATIN POWDER 15GM BTL EXT SCH ×3 (08:33→20:32)
[2017-01-21] MEDS: DOXYCYCLINE HYCLATE 100 MG CAP PO SCH ×2 (08:33→20:32)
[2017-01-21] MEDS: DOCUSATE SODIUM/SENNA 50/8.6MG TAB PO SCH (08:34)
[2017-01-21] MEDS: OMEGA-3 (PURIFIED FISH OIL) 1 GM CAP PO SCH ×2 (08:34→20:32)
[2017-01-21] MEDS: FUROSEMIDE 20 MG TAB PO SCH (08:34)
[2017-01-21] MEDS: DOCUSATE SODIUM 100 MG CAP PO SCH ×2 (08:35→20:32)
[2017-01-21] MEDS: LATANOPROST 0.005% OP SOLN 2.5 ML BTL OPB SCH (08:35)
[2017-01-21] MEDS: ASPIRIN 325 MG ECTAB PO SCH (08:35)
[2017-01-21] MEDS: HEPARIN SOD 5000 UNIT/0.5 ML CARP SQ SCH ×3 (08:39→20:35)
[2017-01-21 15:02] VITALS: BP 127/77; PULSE 57; TEMP 36.4; O2SAT 94
[2017-01-21] MEDS ORDERED: WARFARIN SOD 5 MG TAB PO SCH (16:00)
--- NOTE | 2017-01-21 17:51 | Progress Note ---
Internal Med Progress Note Date of Service: Jan 21, 2017. Provider Documentation: SUBJECTIVE: sitting on the chair comfortably family in room feeling fine no sob eating ok moved bowels OBJECTIVE: Vital Signs-as noted below Exam: General-alert and awake. not in distress ENT-normal hearing Neck-no neck masses supple Lungs-cta b/l no wheezing or crackles Heart-s1 and s2 heard irregular no murmurs Abdomen-soft bowel sounds present non tender no distension Extremities- b/l lower extremity edema and erythema present-erythema improving Neuro-alert and awake moves extremities Lab data as noted below. ASSESSMENT & PLAN: This is an 89-year-old female, who presents with lower extremity weakness. 1. Lower extremity weakness and ambulatory dysfunction. The patient is mostly wheelchair-bound able to ambulate a few steps, but having difficulty ambulating lately. pt/ot and plan for placement to rehab. Doing better . Awaiting placement 2.Lower extremity cellulitis erythema improved on abx. possible cause for above.to continue current abx. stable 3. Atrial fibrillation, seems new onset. rates under control on atenolol. echo: The aortic valve is severely calcified. * Severe valvular aortic stenosis. * Ejection Fraction = 65-70%. * There is moderate concentric left ventricular hypertrophy. * The left atrium is severely dilated. * Calcified mitral apparatus. * There is mild mitral regurgitation. * There is mild tricuspid regurgitation. * The estimated systolic PAP IS 48mmHg. * Dilated inferior vena cava with reduced collapsability with sniff indicates an elevated right atrial pressure of 15 mmHg * Trivial right lateral pericardial effusion. * There are no echocardiographic indications of cardiac tamponade. Appreciate cardiology inputs Patient want to discuss about Coumadin with her family before deciding. starting on Coumadin. close f/u 4. Chronic lower extremity edema acute on chronic diastolic chf? with preserved ef from valvular heart disease lasix 20mg changed to daily dose by cardiology will monitor 5. Hypothyroidism, continue Synthroid. 4. Hypertension, continue atenolol. We will monitor blood pressure. 5. Anemia, hemoglobin at baseline. We will monitor her labs. 6. Deep venous thrombosis prophylaxis. Heparin subQ for now. 7. Disposition: Monitor in the tele floor. Physical therapy and occupational therapy prior to discharge. Social Service to help with discharge planning. Level 1. Full code.Await rehab placement Vital Signs: Date Time Temp Pulse Resp B/P (MAP) Pulse Ox O2 Delivery O2 Flow Rate FiO2 01/21/17 16:00 Room Air 01/21/17 15:02 36.4 57 20 127/77 (94) 94 01/21/17 12:00 Room Air 01/21/17 08:30 Room Air 01/21/17 07:33 36.6 67 20 124/69 (87) 97 01/21/17 04:00 Room Air 01/21/17 00:00 Room Air 01/20/17 22:17 36.5 70 18 130/83 (99) 96 Room Air 01/20/17 20:00 Room Air Lab Results: Results Past 24 Hours Test 01/21/17 05:35 Range/Units White Blood Count 3.99 4.8-10.8 K/uL Red Blood Count 3.94 4.2-5.4 M/uL Hemoglobin 11.1 12.0-16.0 g/dL Hematocrit 33.8 37-47 % Mean Corpuscular Volume 85.8 80-100 fL Mean Corpuscular Hemoglobin 28.2 25-34 pg Mean Corpuscular Hemoglobin Concent 32.8 32-36 g/dl Platelet Count 156 130-400 K/uL Mean Platelet Volume 10.9 7.4-10.4 fL Neutrophils (%) (Auto) 47.0 % Lymphocytes (%) (Auto) 39.1 % Monocytes (%) (Auto) 9.8 % Eosinophils (%) (Auto) 3.5 % Basophils (%) (Auto) 0.3 % Neutrophils # (Auto) 1.88 1.4-6.5 K/uL Lymphocytes # (Auto) 1.56 1.2-3.4 K/uL Monocytes # (Auto) 0.39 0.11-0.59 K/uL Eosinophils # (Auto) 0.14 0-0.5 K/uL Basophils # (Auto) 0.01 0-0.2 K/uL RDW Standard Deviation 55.7 36.4-46.3 fL RDW Coefficient of Variation 17.7 11.5-14.5 % Immature Granulocyte % (Auto) 0.3 % Immature Granulocyte # (Auto) 0.01 0.00-0.02 K/uL Prothrombin Time 12.2 9.0-12.0 SECONDS Prothromb Time International Ratio 1.1 0.9-1.1 Sodium Level 143 136-145 mmol/L Potassium Level 4.1 3.5-5.1 mmol/L Chloride Level 110 98-107 mmol/L Carbon Dioxide Level 26 21-32 mmol/L Anion Gap 7.0 3-11 mmol/L Blood Urea Nitrogen 26 7-18 mg/dl Creatinine 0.72 0.60-1.20 mg/dl Est Creatinine Clear Calc Drug Dose 68.1 ml/min Estimated GFR () 86.1 Estimated GFR (Non- 74.3 BUN/Creatinine Ratio 36.6 10-20 Random Glucose 85 70-99 mg/dl Calcium Level 8.1 8.5-10.1 mg/dl Magnesium Level 2.0 1.8-2.4 mg/dl
[2017-01-21] MEDS: CEFTRIAXONE SOD INJ 1 GM in DEXTROSE 5% ADD-VANTAGE 50ML 50 ML IV SCH (20:32)
[2017-01-21 23:41] VITALS: BP 125/78; PULSE 66; TEMP 36.5; O2SAT 96
[2017-01-22 03:42] VITALS: BP 120/75; PULSE 83; TEMP 36.7; O2SAT 96
[2017-01-22 05:38] LABS: INR 1.1 (0.9-1.1); PROTHROMBIN TIME (PATIENT) 12.2 SECONDS (9.0-12.0)
[2017-01-22] MEDS: LEVOTHYROXINE 100 MCG TAB PO SCH (06:01)
[2017-01-22 07:19] VITALS: BP 116/72; PULSE 80; TEMP 36.6; O2SAT 95
[2017-01-22] MEDS: DOCUSATE SODIUM 100 MG CAP PO SCH (09:20)
[2017-01-22] MEDS: ASPIRIN 325 MG ECTAB PO SCH (09:20)
[2017-01-22] MEDS: DOXYCYCLINE HYCLATE 100 MG CAP PO SCH (09:20)
[2017-01-22] MEDS: DOCUSATE SODIUM/SENNA 50/8.6MG TAB PO SCH (09:20)
[2017-01-22] MEDS: OMEGA-3 (PURIFIED FISH OIL) 1 GM CAP PO SCH (09:21)
[2017-01-22] MEDS: FUROSEMIDE 20 MG TAB PO SCH (09:22)
[2017-01-22] MEDS: POTASSIUM CHLORIDE 20 MEQ TABCR PO SCH (09:22)
[2017-01-22] MEDS: LATANOPROST 0.005% OP SOLN 2.5 ML BTL OPB SCH (09:22)
[2017-01-22] MEDS: NYSTATIN POWDER 15GM BTL EXT SCH (09:23)
[2017-01-22] MEDS: HEPARIN SOD 5000 UNIT/0.5 ML CARP SQ SCH (09:25)
--- NOTE | 2017-01-22 10:57 | Progress Note ---
Internal Med Progress Note Date of Service: Jan 22, 2017. Provider Documentation: SUBJECTIVE: sitting on the chair comfortably SON IN ROOM READY TO GO TO [facility] AMBULATED BETTER TODAY LEGS AE FEELING BETTER AFEBRILE NO SOB OBJECTIVE: Vital Signs-as noted below Exam: General-alert and awake. not in distress ENT-normal hearing Neck-no neck masses supple Lungs-cta b/l no wheezing or crackles Heart-s1 and s2 heard irregular no murmurs Abdomen-soft bowel sounds present non tender no distension Extremities- b/l lower extremity edema and erythema present-erythema improving Neuro-alert and awake moves extremities Lab data as noted below. ASSESSMENT & PLAN: This is an 89-year-old female, who presents with lower extremity weakness. 1. Lower extremity weakness and ambulatory dysfunction. The patient is mostly wheelchair-bound able to ambulate a few steps, but having difficulty ambulating lately. pt/ot and plan for placement to rehab. Doing better . Plan for rehab today 2.Lower extremity cellulitis erythema improved on abx. possible cause for above.to continue current abx. will d/c on doxy and Keflex to complete one week course 3. Atrial fibrillation, seems new onset. rates under control on atenolol. echo: The aortic valve is severely calcified. * Severe valvular aortic stenosis. * Ejection Fraction = 65-70%. * There is moderate concentric left ventricular hypertrophy. * The left atrium is severely dilated. * Calcified mitral apparatus. * There is mild mitral regurgitation. * There is mild tricuspid regurgitation. * The estimated systolic PAP IS 48mmHg. * Dilated inferior vena cava with reduced collapsability with sniff indicates an elevated right atrial pressure of 15 mmHg * Trivial right lateral pericardial effusion. * There are no echocardiographic indications of cardiac tamponade. Appreciate cardiology inputs Patient initially wanted to discuss about Coumadin with her family before deciding. patient decided to be on Coumadin close f/u with Coumadin clinic. f/u with cardiology 4. Chronic lower extremity edema acute on chronic diastolic chf? with preserved ef from valvular heart disease Lasix 20mg changed to daily dose by cardiology will monitor. stable 5. Hypothyroidism, continue Synthroid. 4. Hypertension, continue atenolol. We will monitor blood pressure. 5. Anemia, hemoglobin at baseline. We will monitor her labs. 6. Deep venous thrombosis prophylaxis. Heparin subQ for now. [facility] Vital Signs: Date Time Temp Pulse Resp B/P (MAP) Pulse Ox O2 Delivery O2 Flow Rate FiO2 01/22/17 08:09 Room Air 01/22/17 07:19 36.6 80 16 116/72 (87) 95 Room Air 01/22/17 04:00 Room Air 01/22/17 03:42 36.7 83 18 120/75 (90) 96 Room Air 01/22/17 00:00 Room Air 01/21/17 23:41 36.5 66 16 125/78 (94) 96 Room Air 01/21/17 20:00 Room Air 01/21/17 16:00 Room Air 01/21/17 15:02 36.4 57 20 127/77 (94) 94 01/21/17 12:00 Room Air Lab Results: Results Past 24 Hours Test 01/22/17 05:18 Range/Units Prothrombin Time 12.2 9.0-12.0 SECONDS Prothromb Time International Ratio 1.1 0.9-1.1
[2017-01-22] MEDS ORDERED: POTA10CA28 PO (11:12)
[2017-01-22] MEDS ORDERED: DXY100 PO (11:12)
[2017-01-22] MEDS ORDERED: CEFU1TAB36 PO (11:12)
[2017-01-22] MEDS ORDERED: LSX20 PO (11:12)
[2017-01-22] MEDS ORDERED: LCTX PO (11:12)
[2017-01-22] MEDS ORDERED: WARF5TAB90 PO (11:12)
[2017-01-22] MEDS ORDERED: ASPEC81 PO (11:12)
[2017-01-22] MEDS ORDERED: WARF1TAB PO (11:12)
--- NOTE | 2017-01-22 11:19 | Discharge Instructions ---
Discharge Instructions Date of Service Jan 22, 2017. Admission Reason for Admission: Afib, Lower Extremity Weakness Discharge Discharge Diagnosis / Problem: a fib, lower extremity weakness. cellulitis? Discharge Goals Goal(s): Decrease discomfort, Improve function Activity Recommendations Activity Level: Up Ad Bev, Assistance Required Therapies: Physical Therapy, Occupational Therapy . Additional Information Patient informed of condition: Yes Advance Directives: Yes DNR: No Level of Care: Acute Rehab Communicable Disease: No Prognosis: Stable Fermin Catheter: No Instructions / Follow-Up Instructions / Follow-Up FOLLOWUP WITH FAMILY DOCTOR IN ONE WEEK. FOLLOW UP WITH CARDIOLOGY SCHEDULED. LAB: BMP IN ONE WEEK AND FOLLOW RESULTS WITH FAMILY DOCTOR DIURETIC DOSE FREQUENCY CHANGED. COUMADIN 7MG PO DAILY AND KINDLY CHECK PT/INR DAILY AND ADJUST COUMADIN DOSING. Current Hospital Diet Patient's current hospital diet: AHA Diet (Heart Healthy) Discharge Diet Recommended Diet: AHA Diet (Heart Healthy) Pending Studies Studies pending at discharge: no Physician Orders On Transfer Special Precautions: FALL AND ASPIRATION PRECAUTIONS Vital Signs: EVERY 8HRS Additional Orders: Call your Primary Care doctor if any of the following symptoms or problems start or get worse: * Shortness of breath or difficulty breathing * Wake up at night short of breath * Chest pain * Cough * Swelling of your hands, feet, or legs * More fatigued or tired with your normal activity * Palpitations - sudden fast heart beats WEIGHT * Weigh yourself every morning after using the bathroom. * Use the same scale. * Wear the same amount of clothing. * Write your weight down on a chart. * Call your Primary Care doctor if you gain more than 2-3 pounds in 1-2 days. MEDICATIONS * Use this discharge instruction sheet for medication instructions. * Take your medications at the time your doctor ordered. * Do not skip a dose of your medicines. * If you miss a dose of medicine, take it as soon as possible, but DO NOT DOUBLE A DOSE. * Read your medicine information when you get home. * Know all of the side effects of your medicine. If in doubt, ask your pharmacist * Call your Primary Care doctor's office if you have any side effects. * Be sure all of your doctors know what medicine and herbs you take (including cold, flu, and herbal medicine). Take the following with you to your follow-up doctor appointments: * Weight Chart * Medication List * List of questions Do not drink excessive alcohol, beer or wine. Medical Emergencies . Who to Call and When: Medical Emergencies: If at any time you feel your situation is an emergency, please call 911 immediately. . Non-Emergent Contact Non-Emergency issues call your: Primary Care Provider . . "Provider Documentation" section prepared by Chandrakant Ford. . Core Measure Problem Core Measures: None
--- NOTE | 2017-01-22 11:24 | Discharge Summary ---
Discharge Summary Date of Service Jan 22, 2017. Discharge Summary Admission Date: Jan 20, 2017 at 18:57 Discharge Date: Jan 22, 2017 Discharge Disposition: Rehab Principal Diagnosis: LOWER EXTREMITY WEAKNESS CELLULITIS? A FIB Secondary Diagnoses/Problems: for hypertension, chronic lower extremity lymphedema, aortic stenosis, arthritis and chronic anemia Procedures: VENOUS DOPPLER: No sonographic evidence of deep venous thrombosis within the right or left lower extremity. CXR: Mild cardiomegaly. Otherwise negative study. ECHO: The aortic valve is severely calcified. * Severe valvular aortic stenosis. * Ejection Fraction = 65-70%. * There is moderate concentric left ventricular hypertrophy. * The left atrium is severely dilated. * Calcified mitral apparatus. * There is mild mitral regurgitation. * There is mild tricuspid regurgitation. * The estimated systolic PAP IS 48mmHg. * Dilated inferior vena cava with reduced collapsability with sniff indicates an elevated right atrial pressure of 15 mmHg * Trivial right lateral pericardial effusion. * There are no echocardiographic indications of cardiac tamponade. Consultations: CARDIOLOGY Medication Reconciliation New Medications: Aspirin (Aspirin EC Low Dose) 81 Mg Ectab 81 MG PO DAILY, #30 2 Refills Cefuroxime Axetil (Cefuroxime Axetil) 500 Mg Tab 1 TAB PO BID for 4 Days, #8 TAB Lactobacillus Acidophilus (Lactinex) Tab 2 TAB PO BID for 7 Days, TAB Potassium Chloride (Micro-K Ext Rel) 10 Meq Capcr 10 MEQ PO DAILY, #30 CAP 2 Refills Warfarin Sodium (Coumadin) 1 Mg Tab 2 TAB PO DAILY for 30 Days, #60 TAB 3 Refills Warfarin Sodium (Coumadin) 5 Mg Tab 1 TAB PO DAILY for 30 Days, #30 TAB 5 Refills Doxycycline Hyclate (Doxycycline Hyclate) 100 Mg Cap 100 MG PO BID for 4 Days, #8 CAP Furosemide (Furosemide) 20 Mg Tab 20 MG PO QAM for 30 Days, #30 TAB 2 Refills Continued Medications: Acetaminophen Tab (Tylenol) 325 Mg Tab 650 MG PO Q6 PRN for Pain MAX 3 GM APAP/24 HRS Atenolol (Tenormin) 25 Mg Tab 12.5 MG PO DAILY HALF OF A 25 MG TABLET Docusate Sodium (Docusate Sodium) 100 Mg Cap 100 MG PO BID Latanoprost (Xalatan 0.005% Oph Angelica) 0.005 % Angelica 1 DROP OPB DAILY, #2.5 ML 3 Refills Levothyroxine Sodium (Levothyroxine Sodium) 100 Mcg Tab 100 MCG PO DAILY for 90 Days, #90 TAB 3 Refills Loperamide Hcl (Imodium) 2 Mg Cap 4 MG PO UD 2 CAPLETS AFTER 1ST LOOSE STOOL, THEN 1 TABLET AFTER EACH SUBSEQUENT LOOSE STOOL. * MAX 4 CAPLETS / 24 HOURS* Magnesium Hydroxide (Milk of Magnesia) 30 Ml Susp 30 ML PO DAILY PRN for Constipation Menthol-Methyl Salicylate (Roopa (Thera-Gesic) 1 Cre Cre 1 APPLN TOP BID PRN for MUSCLE PAIN Nystatin (Nystatin Cream) 90 Appln/30 Gm Cr 0 TOP BID PRN for YEAST, #15 GM APPLY TO AFFECTED AREA BID Nystatin (Topical) (Nystop) 100,000 Unit/Gm Pow 1 APPLN TOP TID [place]-3 Fatty Acids (Fish Oil) 1,000 Mg Cap 1000 MG PO BID Polyethylene Glycol 3350 (Miralax) 1 Pow Pow 17 GM PO DAILY PRN for Constipation Sennosides-Docusate Sodium (Sennalax-S) 1 Tab Tab 1 TAB PO DAILY Tramadol (Ultram) 50 Mg Tab 50 MG PO Q6 PRN for Pain, TAB Discontinued Medications: Aspirin (Aspirin Ec) 325 Mg Tab 325 MG PO QAM WITH BREAKFAST Furosemide (Lasix) 20 Mg Tab 20 MG PO MWF, TAB Naproxen Sodium (Naproxen Sodium) 220 Mg Tab 20 MG PO DAILY PRN for Pain ON DAYS OF THERAPY Potassium Ext Rel (Klor-Con) 20 Meq Tabcr 20 MEQ PO MWF, TAB Admission Information HPI (per Admitting provider): : This is an 89-year-old female with a past medical history significant for hypertension, chronic lower extremity lymphedema, aortic stenosis, arthritis and chronic anemia who currently lives at [facility] [place], was brought in because of weakness in the lower extremity. The patient is mostly wheelchair bound since April of this year because of weakness in the legs. She can ambulate a few steps, but since yesterday she is having a difficult time ambulating to her wheelchair, so she was brought to the ER to rule out of any infection or DVT of lower extremities. The patient says there is no increase in swelling or erythematous changes in the lower extremity. She denies any fever or chills. No burning micturition or blood in the urine. Has normal bowel movements. No blood in the stools. She denies any chest pain or shortness of breath. No headaches, no blurred vision, no cough, no nausea, no vomiting and no abdominal pain. Appetite is okay. Currently, she is resting comfortable and hemodynamically stable. Denies any sore throat or difficulty swallowing. Denies any skin rash at this time. The plan was to send her to [facility], but because of no bed availability we were called for admission and observation. Physical Exam (per Admitting): GENERAL: The patient is of moderate build, not in distress. VITAL SIGNS: Temperature 37.1, pulse 74, respiratory rate 18, blood pressure 139/76 and oxygen 98% on room air. HEENT: No pallor, no icterus. Pupils are equal, round, and reactive to light. NECK: No JVD, no neck masses, no carotid bruits. Supple. CARDIOVASCULAR: S1, S2 heard. Regular rate and rhythm. Ejection systolic murmur present. RESPIRATORY SYSTEM: Normal AP diameter. No accessory muscle use. No wheezing, no crackles. ABDOMEN: Soft, bowel sounds are present. Nontender. No distention. CENTRAL NERVOUS SYSTEM: Cranial nerves II-XII are grossly intact. Nonfocal. EXTREMITIES: Chronic lower extremity edema present. Mildly erythematous. No tenderness or warmth on palpation. Hospital Course This is an 89-year-old female, who presents with lower extremity weakness. 1. Lower extremity weakness and ambulatory dysfunction. The patient is mostly wheelchair-bound able to ambulate a few steps, but having difficulty ambulating lately. pt/ot and plan for placement to rehab. Doing better . Plan for rehab today 2.Lower extremity cellulitis erythema improved on abx. possible cause for above.to continue current abx. will d/c on doxy and Keflex to complete one week course 3. Atrial fibrillation, seems new onset. rates under control on atenolol. echo: The aortic valve is severely calcified. * Severe valvular aortic stenosis. * Ejection Fraction = 65-70%. * There is moderate concentric left ventricular hypertrophy. * The left atrium is severely dilated. * Calcified mitral apparatus. * There is mild mitral regurgitation. * There is mild tricuspid regurgitation. * The estimated systolic PAP IS 48mmHg. * Dilated inferior vena cava with reduced collapsability with sniff indicates an elevated right atrial pressure of 15 mmHg * Trivial right lateral pericardial effusion. * There are no echocardiographic indications of cardiac tamponade. Appreciate cardiology inputs Patient initially wanted to discuss about Coumadin with her family before deciding. patient decided to be on Coumadin close f/u with Coumadin clinic. f/u with cardiology 4. Chronic lower extremity edema acute on chronic diastolic chf? with preserved ef from valvular heart disease Lasix 20mg changed to daily dose by cardiology will monitor. stable 5. Hypothyroidism, continue Synthroid. 4. Hypertension, continue atenolol. We will monitor blood pressure. 5. Anemia, hemoglobin at baseline. We will monitor her labs. 6. Deep venous thrombosis prophylaxis. Heparin subQ for now. Plan for [facility] today Total time spent on discharge = 40MINUTES This includes examination of the patient, discharge planning, medication reconciliation, and communication with other providers. Discharge Instructions Discharge Instructions Date of Service Jan 22, 2017. Admission Reason for Admission: Afib, Lower Extremity Weakness Discharge Discharge Diagnosis / Problem: a fib, lower extremity weakness. cellulitis? Discharge Goals Goal(s): Decrease discomfort, Improve function Activity Recommendations Activity Level: Up Ad Bev, Assistance Required Therapies: Physical Therapy, Occupational Therapy . Additional Information Patient informed of condition: Yes Advance Directives: Yes DNR: No Level of Care: Acute Rehab Communicable Disease: No Prognosis: Stable Fermin Catheter: No Instructions / Follow-Up Instructions / Follow-Up FOLLOWUP WITH FAMILY DOCTOR IN ONE WEEK. FOLLOW UP WITH CARDIOLOGY SCHEDULED. LAB: BMP IN ONE WEEK AND FOLLOW RESULTS WITH FAMILY DOCTOR DIURETIC DOSE FREQUENCY CHANGED. COUMADIN 7MG PO DAILY AND KINDLY CHECK PT/INR DAILY AND ADJUST COUMADIN DOSING. Current Hospital Diet Patient's current hospital diet: AHA Diet (Heart Healthy) Discharge Diet Recommended Diet: AHA Diet (Heart Healthy) Pending Studies Studies pending at discharge: no Physician Orders On Transfer Special Precautions: FALL AND ASPIRATION PRECAUTIONS Vital Signs: EVERY 8HRS Additional Orders: Call your Primary Care doctor if any of the following symptoms or problems start or get worse: * Shortness of breath or difficulty breathing * Wake up at night short of breath * Chest pain * Cough * Swelling of your hands, feet, or legs * More fatigued or tired with your normal activity * Palpitations - sudden fast heart beats WEIGHT * Weigh yourself every morning after using the bathroom. * Use the same scale. * Wear the same amount of clothing. * Write your weight down on a chart. * Call your Primary Care doctor if you gain more than 2-3 pounds in 1-2 days. MEDICATIONS * Use this discharge instruction sheet for medication instructions. * Take your medications at the time your doctor ordered. * Do not skip a dose of your medicines. * If you miss a dose of medicine, take it as soon as possible, but DO NOT DOUBLE A DOSE. * Read your medicine information when you get home. * Know all of the side effects of your medicine. If in doubt, ask your pharmacist * Call your Primary Care doctor's office if you have any side effects. * Be sure all of your doctors know what medicine and herbs you take (including cold, flu, and herbal medicine). Take the following with you to your follow-up doctor appointments: * Weight Chart * Medication List * List of questions Do not drink excessive alcohol, beer or wine. Medical Emergencies . Who to Call and When: Medical Emergencies: If at any time you feel your situation is an emergency, please call 911 immediately. . Non-Emergent Contact Non-Emergency issues call your: Primary Care Provider . . "Provider Documentation" section prepared by Chandrakant Ford. . Core Measure Problem Core Measures: None
[2017-01-22 11:35] VITALS: BP 122/68; PULSE 62; TEMP 36.7; O2SAT 95
== END 2017-01-22 12:30 | DRG 308 ==
LOC: EDBD 09:53 → C.EDA 09:54 → C.MS2W 19:00 → ENRESERV 19:04 → C.MED 01-19 09:36 → OBSVTOIN 01-20 18:57
PROVIDERS: ADMIT Internal Medicine; ATTEND Internal Medicine
DX: I48.91 Unspecified atrial fibrillation (principal); I50.43 Acute on chronic combined systolic (congestive) and diastolic (congestive) heart failure; L03.115 Cellulitis of right lower limb; L03.116 Cellulitis of left lower limb; I13.0 Hypertensive heart and chronic kidney disease with heart failure and stage 1 through stage 4 chronic kidney disease, or unspecified chronic kidney disease; N18.3 Chronic kidney disease, stage 3 (moderate); E78.5 Hyperlipidemia, unspecified; E03.9 Hypothyroidism, unspecified; E66.9 Obesity, unspecified; D64.9 Anemia, unspecified; I35.0 Nonrheumatic aortic (valve) stenosis; R26.9 Unspecified abnormalities of gait and mobility; Z79.82 Long term (current) use of aspirin; Z79.899 Other long term (current) drug therapy; Z68.34 Body mass index [BMI] 34.0-34.9, adult

== ENCOUNTER → 2017-03-05 | Outpatient (CLI) | payer OTHER ==
[~2017-03-05] MED LIST changes: -ACET-1311 PO; +ACET325T96 PO; -ASPEC325 PO; +ASPEC81 PO; +ATEN-173 PO; +CLC100 PO; -DOCU100C31 PO; +DXY100 PO; -FURO-85 PO; -GLUCCAP PO; +IMD/2 PO; +LINICRE TOP; -LOPE1CAP6 PO; +LSX20 PO; -MOML PO; +MOMLX PO; -NAPR1TAB9 PO; -NYSCR30 EXT; +NYSCR30 TOP; -NYSP EXT; +OMEG10002 PO; -OMEG10007 PO; -POLY1POW2 PO; +POLY335025 PO; +POTA10CA28 PO; -POTA10TA PO; +SENN1TAB86 PO; -SENN8.6T15 PO; -SULF800T23 PO; -TNR25 PO; +WARF1TAB PO; +WARF5TAB90 PO
[2017-03-05 13:18] LABS: INR 2.4 (0.9-1.1); PROTHROMBIN TIME (PATIENT) 26.8 SECONDS (9.0-12.0)
== END | disposition home or self-care (01) ==
LOC: C.LABSPEC 12:17
PROVIDERS: ATTEND Internal Medicine Interventional Cardiology
DX: I48.91 Unspecified atrial fibrillation (principal)

== ENCOUNTER → 2017-03-07 | Outpatient (CLI) | payer OTHER ==
[2017-03-07 10:21] LABS: INR 1.9 (0.9-1.1); PROTHROMBIN TIME (PATIENT) 21.3 SECONDS (9.0-12.0)
--- NOTE | 2017-03-23 09:07 | CODING QUERY NO DIAGNOSIS ---
TREATMENT RENDERED WITHOUT A DIAGNOSIS : 1925 To promote full compliance with coding requirements relating to patient care, physician participation is requested in all cases of medical biller coder uncertainty. Please assist us with providing a diagnosis/symptom for the test(s) below: A diagnosis/symptom was not documented on your Order. A valid diagnosis/symptom is required to bill all insurances. Please remember that we are unable to code a diagnosis of rule out, probable, possible, questionable, or suspected. Tests that require a diagnosis: DOS: 03/07/17 * PROTHROMBIN TIME PRO DIAGNOSIS: Provider Signature: Date: Thank you Yesi Peraza [employer] Information Management Once completed, please kindly fax back to [phone] For questions please call [phone]
== END | disposition home or self-care (01) ==
LOC: C.LABSPEC 09:33
PROVIDERS: ATTEND Internal Medicine Interventional Cardiology
DX: I48.91 Unspecified atrial fibrillation (principal)